=== PATIENT | male | born 1950 | race Caucasian/White ===

== ENCOUNTER 2017-01-25 21:04 | Inpatient (IN) | payer MEDICARE, OTHER ==
[2017-01-25] MEDS ORDERED: MORPHINE SULFATE 2 MG/ML SYRINGE IVP STA (21:14)
[2017-01-25] MEDS ORDERED: NITROGLYCERIN OINT 1 INCH/GM PACKET TOPICAL STA (21:14)
--- NOTE | 2017-01-25 21:19 | ED ---
Chest Pain HPI - General Stated Complaint: Chest Pain Time Seen by Provider: 01/25/17 21:05 Source: patient, EMS - History of Present Illness Initial Comments: This patient is a 66-year-old man brought in by EMS to be evaluated for pain just to the left of the epigastric/xiphoid area. The patient describes the pain as a burning/sharp pain. It is constant, moderate severity, and he has not noted any worsening or relieving factors. The patient was at rest when it came on, as she has been recently bedbound due to health problems. MD Complaint: chest pain Onset/Timin -: hour(s) Onset: during rest Pain Location: substernal Severity: moderate Quality: sharp, other Consistency: constant Improves With: nothing Worsens With: nothing - Related Data Home Medications Medication Instructions Recorded Confirmed Amiodarone [Cordarone] 200 mg PO DAILY 09/28/16 01/25/17 Ferrous Sulfate [Iron (65 MG 325 mg PO BID 09/28/16 01/25/17 Elemental)] Melatonin 5 mg PO HS 09/28/16 01/25/17 Metoprolol Tartrate [Lopressor] 12.5 mg PO BID 09/28/16 01/25/17 Ranitidine HCl 150 mg PO BID 09/28/16 01/25/17 Sertraline [Zoloft] 50 mg PO DAILY 09/28/16 01/25/17 Tamsulosin HCl [Flomax] 0.4 mg PO DAILY 09/28/16 01/25/17 HYDROcodone/APAP 7.5-325MG [[place] 1 tab PO Q6H PRN 01/25/17 01/25/17 7.5-325] LORazepam [Ativan] 1 mg PO Q8H PRN 01/25/17 01/25/17 Magnesium Oxide [Mag-Ox] 400 mg PO BID 01/25/17 01/25/17 Phosphorus #1 [K-Phos Neutral 250 mg PO TID 01/25/17 01/25/17 Tablet] Warfarin [Coumadin] 2 mg PO SUMOTUWETHFR 01/25/17 01/25/17 Previous Rx's Medication Instructions Recorded risperiDONE 3 mg PO HS #20 tablet 10/08/16 risperiDONE [RisperDAL] 2 mg PO QAM #20 tab 10/08/16 Allergies Allergy/AdvReac Type Severity Reaction Status Date / Time No Known Allergies Allergy Verified 01/25/17 21:23 Review of Systems ROS Statement: Those systems with pertinent positive or pertinent negative responses have been documented in the HPI. ROS Other: All systems not noted in ROS Statement are negative. Constitutional: Denies: fever, chills Respiratory: Denies: cough, dyspnea, hemoptysis Cardiovascular: Reports: as per HPI, chest pain. Denies: palpitations, orthopnea, edema, syncope Gastrointestinal: Denies: abdominal pain, vomiting, diarrhea Genitourinary: Denies: dysuria, hematuria Musculoskeletal: Denies: back pain Skin: Denies: rash Neurological: Denies: headache EKG Findings - EKG Comments: EKG Findings:: QRS duration is 168 ms, There appears to be a nonspecific intraventricular block. There is an old inferior infarct. - EKG Results: EKG: interpreted by ERMD - Blocks, [place], Hypertrophy, ST Abn: AV and intraventricular conduction: 1 AV block, intraventricular conduction delay QRS axis and voltage: right axis deviation (+90 to +180) Past Medical History Past Medical History: Atrial Fibrillation, GERD/Reflux, Hypertension Additional Past Medical History / Comment(s): irregular heart rhythm History of Any Multi-Drug Resistant Organisms: ESBL Date of last positivie culture/infection: 09/28/16 MDRO Source:: BLOOD E.COLI Past Surgical History: Unable to Obtain Past Psychological History: Unable to Obtain Smoking Status: Unknown if ever smoked Past Alcohol Use History: Unable to Obtain Past Drug Use History: Unable to Obtain - Past Family History Father Family Medical History: Unable to Obtain Mother Family Medical History: Unable to Obtain General Exam General appearance: alert, in no apparent distress Head exam: Present: atraumatic, normocephalic Eye exam: Present: normal appearance Neck exam: Present: other (Tracheostomy present and is patent without blood or secretions) Respiratory exam: Present: normal lung sounds bilaterally. Absent: respiratory distress, wheezes, rales, rhonchi, stridor Cardiovascular Exam: Present: regular rate, normal rhythm, systolic murmur. Absent: diastolic murmur, rubs, gallop GI/Abdominal exam: Present: soft. Absent: distended, tenderness, guarding, rebound, mass Extremities exam: Present: normal capillary refill, other (There is symmetric muscle wasting lower extremities). Absent: pedal edema, calf tenderness Back exam: Present: normal inspection. Absent: CVA tenderness (R), CVA tenderness (L) Neurological exam: Present: alert Skin exam: Present: warm, dry, intact, normal color. Absent: rash Course Vital Signs 01/25/17 21:15 Temperature 98.1 F Pulse Rate 86 Respiratory 16 Rate Blood Pressure 134/68 O2 Sat by Pulse 94 L Oximetry Disposition Clinical Impression: Chest pain, Elevated troponin I level Disposition: ADMITTED IP TO THIS HOSP Condition: Fair Instructions: Chest Pain (ED)
[2017-01-25 21:23] LABS: Basophils % (A) 0 %; CH 26.8; CHCM 31.4; Eosinophils % (A) 1 %; HCT 41.1 % (39.0-53.0); HGB 13.4 gm/dL (13.0-17.5); Hypochromasia Slight; Luc # (Auto) 0.06; Luc % (Auto) 1; Lymphocytes # (A) 0.3 k/uL (1.0-4.8); Lymphocytes % (A) 4 %; MCH 27.9 pg (25.0-35.0); MCHC 32.7 g/dL (31.0-37.0); MCV 85.4 fL (80.0-100.0); Mean Platelet Volume 7.9; Monocytes # (A) 0.4 k/uL (0-1.0); Monocytes % (A) 6 %; Neutrophils # (A) 6.9 k/uL (1.3-7.7); Neutrophils % (A) 89 %; RBC 4.81 m/uL (4.30-5.90); RDW 14.5 % (11.5-15.5); WBC 7.8 k/uL (3.8-10.6); WBC (Perox) 8.23
[2017-01-25 21:30] LABS: ALT 112 U/L (21-72); AST 61 U/L (17-59); Alkaline Phosphatase 108 U/L (38-126); Amylase 78 U/L (30-110); Anion Gap 9 mmol/L; Blood Urea Nitrogen 25 mg/dL (9-20); Calcium 8.7 mg/dL (8.4-10.2); Carbon Dioxide 23 mmol/L (22-30); Chloride 104 mmol/L (98-107); Glucose 110 mg/dL (74-99); Magnesium 1.9 mg/dL (1.6-2.3); Non-African American GFR(MDRD) 52 (>60 ml/min/1.73 sqM); Potassium 3.8 mmol/L (3.5-5.1); Sodium 136 mmol/L (137-145); Total Bilirubin 0.4 mg/dL (0.2-1.3); Total Protein 5.9 g/dL (6.3-8.2)
[2017-01-25 21:38] LABS: INR 2.2 (<1.1); Partial Thromboplastin Time 32.4 sec (22.0-30.0); Prothrombin Time 21.3 sec (9.0-12.0)
--- NOTE | 2017-01-25 21:41 | XR ---
EXAMINATION TYPE: XR chest 1V portable DATE OF EXAM: 01/25/2017 9:37 PM COMPARISON: Chest x-ray September 28, 2016 HISTORY: Bradycardia. TECHNIQUE: Single AP portable frontal upright view of the chest is obtained. FINDINGS: Sternal wires and metallic closure device are redemonstrated. There is no focal air space opacity, pleural effusion, or pneumothorax seen. The cardiac silhouette size is within normal limits . There is metallic aortic valvular ring redemonstrated. The osseous structures are intact. IMPRESSION: No acute pulmonary process. No significant change from prior.
[2017-01-25 22:13] LABS: Troponin I 0.035 ng/mL (0.000-0.034)
[2017-01-25] MEDS ORDERED: ENOXAPARIN 80 MG/0.8 ML SYRINGE SQ STA (22:16)
[2017-01-25] MEDS ORDERED: NITROGLYCERIN SL TABS 0.4 MG TAB SUBLINGUAL PRN (22:27)
[2017-01-25] MEDS ORDERED: ENOXAPARIN 40 MG/0.4 ML SYRINGE SQ SCH (22:30)
[2017-01-25] MEDS ORDERED: LORazepam 1 MG TAB PO PRN (22:31)
[2017-01-25] MEDS ORDERED: WARFARIN 2 MG TAB PO SCH (22:45)
[2017-01-25 23:44] LABS: Glucose,Whole Blood 101 mg/dL (75-99)
[2017-01-26 00:57] VITALS: BMI 24.6
[2017-01-26] MEDS: ENOXAPARIN 80 MG/0.8 ML SYRINGE SQ SCH ×3 (01:04→23:09)
[2017-01-26] MEDS: HYDROcodone/APAP 7.5-325MG 1 EACH TAB PO PRN ×2 (01:05→16:49)
[2017-01-26 05:30] LABS: Anion Gap 8 mmol/L; Blood Urea Nitrogen 24 mg/dL (9-20); Carbon Dioxide 24 mmol/L (22-30); Chloride 105 mmol/L (98-107); Cholesterol 101 mg/dL (<200); Glucose 100 mg/dL (74-99); HDL Cholesterol 28 mg/dL (40-60); Non-African American GFR(MDRD) 51 (>60 ml/min/1.73 sqM); Phosphorous 2.8 mg/dL (2.5-4.5); Potassium 3.8 mmol/L (3.5-5.1); Sodium 137 mmol/L (137-145); Triglycerides 99 mg/dL (<150)
[2017-01-26 05:41] LABS: CH 27.6; CHCM 31.7; HCT 42.9 % (39.0-53.0); HDW 2.37; HGB 13.6 gm/dL (13.0-17.5); MCH 27.6 pg (25.0-35.0); MCHC 31.7 g/dL (31.0-37.0); MCV 87.1 fL (80.0-100.0); Mean Platelet Volume 8.1; RBC 4.93 m/uL (4.30-5.90); RDW 15.3 % (11.5-15.5); WBC 9.7 k/uL (3.8-10.6)
[2017-01-26 06:19] LABS: Creatine Kinase MB 0.9 ng/mL (0.0-2.4)
[2017-01-26 06:27] LABS: Troponin I 0.148 ng/mL (0.000-0.034)
[2017-01-26] MEDS: SERTRALINE 50 MG TAB PO SCH (08:19)
[2017-01-26] MEDS: FERROUS SULFATE 325 MG TAB PO SCH ×2 (08:20→23:07)
[2017-01-26] MEDS: FAMOTIDINE 20 MG TAB PO SCH ×2 (08:20→23:07)
[2017-01-26] MEDS: MAGNESIUM OXIDE 400 MG TAB PO SCH ×2 (08:20→23:07)
[2017-01-26] MEDS: risperiDONE 1 MG TAB PO SCH (08:20)
[2017-01-26] MEDS: AMIODARONE 200 MG TAB PO SCH (08:20)
[2017-01-26] MEDS ORDERED: PHOSPHORUS 250 MG PO SCH (09:00)
[2017-01-26] MEDS ORDERED: ASPIRIN 325 MG TAB PO SCH (09:00)
--- NOTE | 2017-01-26 10:06 | P.CRDCN ---
History of Present Illness Consult date: 01/26/17 Requesting physician: Jignesh Reardon Consult reason: chest pain Chief complaint: Chest pain History of present illness: This is a 66-year-old gentleman with known history of hypertension, hyperlipidemia, paroxysmal atrial fibrillation, prior bypass surgery, psychiatric history, who presents to the hospital with symptoms of chest discomfort. Most of the information was extracted from the medical record, as the patient is quite confused. Patient states that he presented to the hospital with symptoms of chest discomfort. EKG on arrival shows normal sinus rhythm with inferior lateral ST-T wave changes. Repeat EKG performed this morning shows sinus bradycardia with first-degree AV block and evidence of inferior ST elevation and anterior lateral ST depression. Upon review of patient's prior EKG performed in September, similar changes but much less pronounced were noted at that time as well. Chest x-ray does not reveal any acute cardiopulmonary process. White blood cell count 9.7, hemoglobin 13.6, platelet count 177. INR 2.2, d-dimer 0.53, potassium 3.8, BUN 24, creatinine 1.4. BNP level 4040. Troponins 0.035, 0.14. Blood pressure on arrival 134/68 with a heart rate in 80s. 94% on room air. Patient is currently on amiodarone 200 mg daily, aspirin 325 mg daily, enoxaparin twice a day, iron tablet, mag oxide, metoprolol tartrate 12-1/2 mg one tablet by mouth twice a day, Coumadin 2 mg daily. At the time of my examination this morning, patient is currently chest pain-free. Past Medical History Past Medical History: Atrial Fibrillation, GERD/Reflux, Hypertension Additional Past Medical History / Comment(s): irregular heart rhythm History of Any Multi-Drug Resistant Organisms: ESBL Date of last positivie culture/infection: 09/28/16 MDRO Source:: BLOOD E.COLI Past Surgical History: Unable to Obtain Past Psychological History: Unable to Obtain Smoking Status: Never smoker Past Alcohol Use History: Unable to Obtain Past Drug Use History: Unable to Obtain - Past Family History Father Family Medical History: Unable to Obtain Mother Family Medical History: Unable to Obtain Medications and Allergies Home Medications Medication Instructions Recorded Confirmed Type Amiodarone [Cordarone] 200 mg PO DAILY 09/28/16 01/25/17 History Ferrous Sulfate [Iron (65 MG 325 mg PO BID 09/28/16 01/25/17 History Elemental)] Melatonin 5 mg PO HS 09/28/16 01/25/17 History Metoprolol Tartrate [Lopressor] 12.5 mg PO BID 09/28/16 01/25/17 History Ranitidine HCl 150 mg PO BID 09/28/16 01/25/17 History Sertraline [Zoloft] 50 mg PO DAILY 09/28/16 01/25/17 History Tamsulosin HCl [Flomax] 0.4 mg PO DAILY 09/28/16 01/25/17 History HYDROcodone/APAP 7.5-325MG [[place] 1 tab PO Q6H PRN 01/25/17 01/25/17 History 7.5-325] LORazepam [Ativan] 1 mg PO Q8H PRN 01/25/17 01/25/17 History Magnesium Oxide [Mag-Ox] 400 mg PO BID 01/25/17 01/25/17 History Phosphorus #1 [K-Phos Neutral 250 mg PO TID 01/25/17 01/25/17 History Tablet] Warfarin [Coumadin] 2 mg PO SUMOTUWETHFR 01/25/17 01/25/17 History Allergies Allergy/AdvReac Type Severity Reaction Status Date / Time No Known Allergies Allergy Verified 01/25/17 21:23 Physical Exam Vitals: Vital Signs Temp Pulse Pulse Resp BP BP Pulse Ox 01/26/17 08:00 98 F 56 L 20 130/67 99 01/26/17 06:00 55 L 13 127/69 97 01/26/17 04:00 60 81 14 108/62 98 01/26/17 02:00 68 21 104/59 96 01/26/17 00:00 98.3 F 84 81 23 126/73 97 01/25/17 22:49 92 16 164/77 98 01/25/17 22:47 98.3 F 81 18 101/71 97 Intake and Output 01/25/17 01/26/17 01/26/17 22:59 06:59 14:59 Intake Total 100 20 Output Total 650 Balance -550 20 Intake: IV 100 20 0.9% NS 100 20 Output: Urine 650 Other: Voiding Method Urinal Urinal Weight 78 kg PHYSICAL EXAMINATION: HEENT: Head is atraumatic, normocephalic. Pupils equal, round. Neck is supple. There is no elevated jugular venous pressure. HEART EXAMINATION: Heart S1, S2 normal. No murmur or gallop heard. CHEST EXAMINATION: Lungs are clear to auscultation and precussion. No chest wall tenderness is noted on palpation or with deep breathing. ABDOMEN: Soft, nontender. Bowel sounds are heard. No organomegaly noted. EXTREMITIES: 2+ peripheral pulses with no evidence of peripheral edema and no calf tenderness noted. NEUROLOGIC patient is awake, alert and oriented -3. . Results 01/26/17 04:08 01/26/17 04:08 Cardiac Enzymes 01/26/17 Range/Units 04:08 CK-MB (CK-2) 0.9 (0.0-2.4) ng/mL Troponin I 0.148 H* (0.000-0.034) ng/mL Lipids 01/26/17 Range/Units 04:08 Triglycerides 99 (<150) mg/dL Cholesterol 101 (<200) mg/dL HDL Cholesterol 28 L (40-60) mg/dL CBC 01/26/17 Range/Units 04:08 WBC 9.7 (3.8-10.6) k/uL RBC 4.93 (4.30-5.90) m/uL Hgb 13.6 (13.0-17.5) gm/dL Hct 42.9 (39.0-53.0) % Plt Count 177 (150-450) k/uL Comprehensive Metabolic Panel 01/26/17 Range/Units 04:08 Sodium 137 (137-145) mmol/L Potassium 3.8 (3.5-5.1) mmol/L Chloride 105 (98-107) mmol/L Carbon Dioxide 24 (22-30) mmol/L BUN 24 H (9-20) mg/dL Creatinine 1.40 H (0.66-1.25) mg/dL Glucose 100 H (74-99) mg/dL Calcium 9.0 (8.4-10.2) mg/dL Current Medications Generic Name Dose Route Start Last Admin Trade Name Freq PRN Reason Stop Dose Admin Hydrocodone Bitart/Acetaminophen 1 each 01/25/17 22:31 01/26/17 01:05 [place] 7.5-325 PO 1 each Q6H PRN Administration Pain Amiodarone HCl 200 mg 01/26/17 09:00 01/26/17 08:20 Cordarone PO 200 mg DAILY [facility] Administration Aspirin 325 mg 01/26/17 09:00 Aspirin PO DAILY [facility] Enoxaparin Sodium 75 mg 01/25/17 23:18 01/26/17 01:04 Lovenox SQ Not Given Q12H [facility] Famotidine 20 mg 01/26/17 09:00 01/26/17 08:20 Pepcid PO 20 mg BID [facility] Administration Ferrous Sulfate 325 mg 01/26/17 09:00 01/26/17 08:20 Feosol PO 325 mg BID [facility] Administration Lorazepam 1 mg 01/25/17 22:31 Ativan PO Q8H PRN Anxiety Magnesium Oxide 400 mg 01/26/17 09:00 01/26/17 08:20 Mag-Ox PO 400 mg BID [facility] Administration Melatonin 5 mg 01/26/17 21:00 Melatonin PO HS [facility] Metoprolol Tartrate 12.5 mg 01/26/17 09:00 Lopressor PO BID [facility] Nitroglycerin 0.4 mg 01/25/17 22:27 Nitrostat SUBLINGUAL Q5M PRN Chest Pain Risperidone 3 mg 01/26/17 21:00 Risperdal PO HS [facility] Risperidone 2 mg 01/26/17 09:00 01/26/17 08:20 Risperdal PO 2 mg QAM [facility] Administration Sertraline HCl 50 mg 01/26/17 09:00 01/26/17 08:19 Zoloft PO 50 mg DAILY [facility] Administration Sodium Chloride 10 ml 01/26/17 09:00 01/26/17 08:21 Saline Flush IV 10 ml BID [facility] Administration Tamsulosin HCl 0.4 mg 01/26/17 09:00 Flomax PO DAILY [facility] Warfarin Sodium 2 mg 01/25/17 22:45 01/26/17 01:06 Coumadin PO 2 mg SUMOTUWETHFR [facility] Administration Intake and Output 01/25/17 01/26/17 01/26/17 22:59 06:59 14:59 Intake Total 100 20 Output Total 650 Balance -550 20 Intake: IV 100 20 0.9% NS 100 20 Output: Urine 650 Other: Voiding Method Urinal Urinal Weight 78 kg 01/26/17 04:08 01/26/17 04:08 EKG Interpretations (text) EKG shows normal sinus rhythm with first-degree AV block inferior Q waves with ST changes and anterior lateral T-wave inversion Assessment and Plan Plan: Assessment and plan #1 non-ST elevation myocardial infarction #2 history of coronary artery disease with prior bypass surgery and prior valve replacement, exact details unavailable #3 hypertension #4 hyperlipidemia #5 psychiatric history #6Paroxysmal atrial fibrillation, on Coumadin. #7 mild renal insufficiency Plan Echocardiogram with Doppler study performed in September revealed an ejection fraction of 55-60% with normally functioning bioprosthetic aortic valve, because of the abnormal troponins we will repeat an echocardiogram with Doppler study.We will hold the patient's Coumadin, continue Lovenox.. Give the patient Lipitor 80 mg now and daily. Decrease aspirin 81 mg daily. Patient may require repeat cardiac catheterization. We will check PT/INR in the morning. Check lytes BUN and creatinine in the morning. Further recommendations to follow. DNP note has been reviewed, I agree with a documented findings and plan of care. Patient was seen and examined.
[2017-01-26 10:58] LABS: Creatine Kinase MB 1.1 ng/mL (0.0-2.4)
[2017-01-26] MEDS: METOPROLOL TARTRATE 12.5 MG TAB PO SCH ×2 (11:01→23:07)
[2017-01-26 11:07] LABS: Troponin I 0.118 ng/mL (0.000-0.034)
[2017-01-26] MEDS: ATORVASTATIN 80 MG TAB PO SCH (12:31)
[2017-01-26] MEDS: TAMSULOSIN 0.4 MG CAP.ER.24H PO SCH (12:31)
--- NOTE | 2017-01-26 12:40 | ECHOF ---
Referral Reason:chest pain MEASUREMENTS -------- HEIGHT: 182.9 cm WEIGHT: 77.6 kg BP: 130/67 IVSd: 1.3 cm (0.6 - 1.1) LVIDd: 4.4 cm (3.9 - 5.3) LVPWd: 1.4 cm (0.6 - 1.1) IVSs: 1.7 cm LVIDs: 2.2 cm LVPWs: 1.7 cm Ao Diam: 3.3 cm (2.0 - 3.7) AV Cusp: 2.0 cm (1.5 - 2.6) LA Diam: 3.9 cm (2.7 - 3.8) MV EXCURSION: 9.718 mm (> 18.000) MV EF SLOPE: 26 mm/s (70 - 150) EPSS: 0.7 cm MV E Jean: 0.43 m/s MV DecT: 281 ms MV A Jean: 0.82 m/s MV E/A Ratio: 0.52 AV maxP.04 mmHg AV meanP.69 mmHg RAP: 5.00 mmHg RVSP: 27.98 mmHg FINDINGS -------- Sinus rhythm. This was a technically difficult study with suboptimal views. There is mild concentric left ventricular hypertrophy. Overall left ventricular systolic function is normal with, an EF between 55 - 60 %. The right ventricle is normal in size and function. The left atrium is normal in size. The right atrium is normal in size. 1.5mg of Definity was utilized for enhancement of images Aortic valve is trileaflet and is mildly thickened. The mitral valve leaflets are mildly thickened. Mild mitral regurgitation is present. Mild tricuspid regurgitation present. The right ventricular systolic pressure, as measured by Doppler, is 27.98mmHg. Pulmonic valve appears structurally normal. The aortic root size is normal. The pericardium is normal. CONCLUSIONS -------- 1. Sinus rhythm. 2. The mitral valve leaflets are mildly thickened. 3. Mild mitral regurgitation is present. 4. Mild tricuspid regurgitation present. 5. The right ventricular systolic pressure, as measured by Doppler, is 27.98mmHg. 6. Pulmonic valve appears structurally normal. 7. The aortic root size is normal. 8. The pericardium is normal. 9. This was a technically difficult study with suboptimal views. 10. There is mild concentric left ventricular hypertrophy. 11. Overall left ventricular systolic function is normal with, an EF between 55 - 60 %. 12. The right ventricle is normal in size and function. 13. The left atrium is normal in size. 14. The right atrium is normal in size. 15. 1.5mg of Definity was utilized for enhancement of images 16. Aortic valve is trileaflet and is mildly thickened. HOOKER UP: Milena Uriarte RDCS
[2017-01-26 12:47] VITALS: RESP 18
--- NOTE | 2017-01-26 16:50 | HP ---
DATE OF ADMISSION: 01/25/2017 PRESENTING COMPLAINT: Chest pain. HISTORY OF PRESENTING COMPLAINT: This is a 66-year-old patient of visiting physician Dr. Kelly whose chronic stable medical conditions include BPH, chronic kidney disease, stage II, atrial fibrillation, GERD, hypertension. The patient uses a wheelchair to get about; has got chronic bilateral foot drop. Patient is not the best of historians. Patient presents with chest pain, left anterior chest wall, off and on; some shortness of breath. No radiation. Denies any sweating. Present at rest. Admitted for the same. Currently free of chest pain. REVIEW OF SYSTEMS: CONSTITUTIONAL: Tired. HEENT: None. RESPIRATORY: As above. CARDIOVASCULAR: As above. GASTROINTESTINAL: Heartburn. GENITOURINARY: Slow urine stream. DERMATOLOGICAL: Dry skin. HEMATOLOGICAL: None. LYMPHATICS: None. PSYCHIATRY: None. NEUROLOGICAL: Some numbness and tingling in the feet. PAST MEDICAL HISTORY: 1. Atrial fibrillation. 2. GERD. 3. Hypertension. PAST SURGICAL HISTORY: Patient does not remember. SOCIAL HISTORY: No smoking. Lives with his brother and nephew. Uses a wheelchair. Denies any alcohol. FAMILY HISTORY: Patient does not remember. HOME MEDICATIONS: 1. K-Phos 250 mg p.o. t.i.d. 2. Magnesium oxide 400 mg p.o. b.i.d. 3. Ativan 1 mg q.8 p.r.n. 4. [place] 7.5 one tablet q.6 p.r.n. 5. Iron 325 p.o. b.i.d. 6. Cordarone 200 mg p.o. daily. 7. Lopressor 12.5 p.o. b.i.d. 8. Melatonin 5 mg p.o. at bedtime. 9. Risperdal 2 mg in the morning and 3 mg at bedtime. 10. Coumadin 2 mg Wednesday, Wednesday, Wednesday, Wednesday, , Wednesday. 11. Flomax 0.4 mg a day. 12. Zoloft 50 mg p.o. daily. 13. Zantac 150 mg p.o. b.i.d. ALLERGIES: NONE. PHYSICAL EXAMINATION: VITAL SIGNS ON PRESENTATION: Temperature 98.1, pulse 86, respiration 16, blood pressure 130/68, pulse ox 94% on room air. GENERAL APPEARANCE: Average build. Sitting up, not in distress. EYES: Pupils equal. Conjunctivae normal. HEENT: Oral cavity normal. NECK: JVD not raised. Mass not palpable. RESPIRATORY: Effort normal. Lungs are clear. CARDIOVASCULAR: First and second sounds normal. No edema. ABDOMEN: Soft, nontender. Liver and spleen not palpable. LYMPHATIC: No lymph node palpable in neck or axillae. PSYCHIATRY: Patient is able to answer simple questions. Mood and affect normal. EXTREMITIES: Patient has bilateral foot drop foot with foot contractures, shiny skin, decreased distal pulses, decreased sensation. INVESTIGATIONS: White count 7.8, hemoglobin 13.4. INR 2.2. Potassium 3.8. BUN 25, creatinine 1.37. Troponin 0.035, 0.148, 0.118. EKG shows some ST-segment depression in the anterolateral leads and some intraventricular block. ASSESSMENT: 1. Acute non-Q-wave myocardial infarction, probably in the lateral wall. 2. Possible underlying rhythm is atrial flutter, persistent. 3. Coumadin monitoring for therapeutic level. 4. Benign prostatic hypertrophy. 5. Chronic kidney disease, stage III, from hypertensive nephrosclerosis. 6. Essential hypertension. 7. Gastroesophageal reflux disease. 8. Bilateral foot drop and contracture. PLAN: Cardiology was consulted. Home medications were resumed. Patient was put on Lovenox. Patient is on a beta phi. Care was discussed with the patient. Two-D echocardiograms is ordered.
[2017-01-26] MEDS ORDERED: risperiDONE 1 MG TAB PO SCH (21:00)
[2017-01-26] MEDS ORDERED: MELATONIN 5 MG TABLET PO SCH (21:00)
[2017-01-27 00:48] VITALS: PULSE 81
[2017-01-27] MEDS: HYDROcodone/APAP 7.5-325MG 1 EACH TAB PO PRN ×2 (03:01→12:38)
[2017-01-27 08:16] LABS: INR 1.7 (<1.1); Prothrombin Time 16.4 sec (9.0-12.0)
[2017-01-27] MEDS: MAGNESIUM OXIDE 400 MG TAB PO SCH (08:39)
[2017-01-27] MEDS: SERTRALINE 50 MG TAB PO SCH (08:39)
[2017-01-27] MEDS: ATORVASTATIN 80 MG TAB PO SCH (08:39)
[2017-01-27] MEDS: FAMOTIDINE 20 MG TAB PO SCH (08:39)
[2017-01-27] MEDS: AMIODARONE 200 MG TAB PO SCH (08:39)
[2017-01-27] MEDS: risperiDONE 1 MG TAB PO SCH (08:39)
[2017-01-27] MEDS: TAMSULOSIN 0.4 MG CAP.ER.24H PO SCH (08:39)
[2017-01-27] MEDS: FERROUS SULFATE 325 MG TAB PO SCH (08:40)
[2017-01-27] MEDS: METOPROLOL TARTRATE 12.5 MG TAB PO SCH (08:41)
[2017-01-27] MEDS ORDERED: ASPIRIN 81 MG CHEW PO SCH (09:00)
[2017-01-27] MEDS: ENOXAPARIN 80 MG/0.8 ML SYRINGE SQ SCH (11:33)
[2017-01-27 14:47] VITALS: BP 112/56; TEMP 97.7
--- NOTE | 2017-01-27 15:09 | P.PN ---
Subjective Principal diagnosis: Chest pain This is a 66-year-old gentleman with known history of hypertension, hyperlipidemia, paroxysmal atrial fibrillation, prior bypass surgery, psychiatric history, who presents to the hospital with symptoms of chest discomfort. He ruled in for non-Q-wave myocardial infarction. Echocardiogram with Doppler study was performed which revealed normal left ventricular systolic function. Patient has remained hemodynamically stable with no complaints of any chest discomfort. From cardiology's perspective, patient was instructed by Dr. Maritza Ibarra that he may be able to be discharged home to follow- up with his drug safety assistant in the office. An outpatient stress test will be ordered within the next one to 2 weeks. Objective - Vital Signs Vital signs: Vital Signs Temp 97.7 F 01/27/17 14:43 Pulse 81 01/27/17 14:43 Resp 18 01/27/17 14:43 BP 112/56 01/27/17 14:43 Pulse Ox 94 L 01/27/17 14:43 Intake & Output 01/26/17 01/27/17 01/27/17 18:59 06:59 18:59 Intake Total 440 Output Total 450 900 400 Balance -10 -900 -400 Weight 78 kg 73.5 kg Intake: IV 20 0.9% NS 20 Oral 420 Output: Urine 450 900 400 Other: Voiding Method Urinal Diaper Diaper Incontinent Incontinent # Voids 2 2 # Bowel Movements 0 0 - Exam PHYSICAL EXAMINATION: HEENT: Head is atraumatic, normocephalic. Pupils equal, round. Neck is supple. There is no elevated jugular venous pressure. HEART EXAMINATION: Heart S1, S2 normal. No murmur or gallop heard. CHEST EXAMINATION: Lungs are clear to auscultation and precussion. No chest wall tenderness is noted on palpation or with deep breathing. ABDOMEN: Soft, nontender. Bowel sounds are heard. No organomegaly noted. EXTREMITIES: 2+ peripheral pulses with no evidence of peripheral edema and no calf tenderness noted. NEUROLOGIC patient is awake, alert and oriented -3. - Labs CBC & Chem 7: 01/26/17 04:08 01/26/17 04:08 Labs: Abnormal Lab Results - Last 24 Hours (Table) 01/27/17 Range/Units 07:51 PT 16.4 H (9.0-12.0) sec Assessment and Plan Plan: Assessment and plan #1 non-ST elevation myocardial infarction #2 history of coronary artery disease with prior bypass surgery and prior valve replacement, exact details unavailable #3 hypertension #4 hyperlipidemia #5 psychiatric history #6Paroxysmal atrial fibrillation, on Coumadin. #7 mild renal insufficiency Plan From cardiology's perspective, patient has been advised by Dr. Maritza Ibarra that he may be able to be discharged home today. We will make him a follow-up appointment in the office within one week, outpatient stress test will also be requested. Continue with maximal medical therapy at this time. DNP note has been reviewed, I agree with a documented findings and plan of care. Patient was seen and examined.
--- NOTE | 2017-01-28 08:23 | DS ---
DATE OF ADMISSION: 01/25/2017 DATE OF DISCHARGE: 01/27/2017 FINAL DIAGNOSES: 1. Acute non-Q myocardial infarction, probably in the lateral wall, present on admission. 2. Persistent atrial flutter. 3. Coumadin monitoring for therapeutic level. 4. Benign prostatic hypertrophy. 5. Chronic kidney disease stage III from hypertensive nephrosclerosis. 6. Essential hypertension. 7. Gastroesophageal reflux disease. 8. Bilateral foot drop and contracture. HOSPITAL COURSE: This patient presented with acute DC. A 2-D echocardiogram showed EF of 55% to 60%. Seen by Dr. Bryant Ibarra; he will do an outpatient stress test. Patient is symptom-free at the time of discharge. BUN and creatinine are 24 and 1.10. Patient is already on Coumadin. LDL was 53. On examination, lungs are clear. CARDIOVASCULAR: First and second sounds normal. DISCHARGE MEDICATIONS: 1. Cordarone 200 mg a day. 2. Iron 325 p.o. b.i.d. 3. Melatonin 5 mg p.o. q.h.s. 4. Lopressor 12.5 p.o. b.i.d. 5. Zantac 150 mg p.o. b.i.d. 6. Zoloft 50 mg p.o. daily. 7. Flomax 0.4 mg p.o. daily. 8. Risperidone 3 mg p.o. q.h.s. and 2 mg p.o. in the morning. 9. [employer] 7.5 one tablets q.6 p.r.n. 10. Ativan 1 mg p.o. q.8 p.r.n. 11. Magnesium oxide 400 mg b.i.d. 12. K-Phos as before. 13. Coumadin 2 mg once Wednesday, Wednesday, Wednesday, Wednesday, , Wednesday. 14. Aspirin 81 mg daily. 15. Lipitor 80 mg daily, 16. Nitrostat 0.4 sublingual q.5 p.r.n. Follow up with Dr. Bryant Ibarra in 1 week. Follow up with Dr. Kelly on 01/29/2017. Patient to have a BMP drawn in 3 days.
== END 2017-01-27 18:36 | disposition home or self-care (01) | DRG 281 ==
LOC: EC 21:04 → 6ICU 22:31 → 6SEL 01-26 09:06
PROVIDERS: ADMIT Hospitalist; ATTEND Hospitalist
DX: I21.4 Non-ST elevation (NSTEMI) myocardial infarction (principal); I48.92 Unspecified atrial flutter; Z93.0 Tracheostomy status; N18.3 Chronic kidney disease, stage 3 (moderate); I48.0 Paroxysmal atrial fibrillation; I44.0 Atrioventricular block, first degree; I25.10 Atherosclerotic heart disease of native coronary artery without angina pectoris; I12.9 Hypertensive chronic kidney disease with stage 1 through stage 4 chronic kidney disease, or unspecified chronic kidney disease; E78.5 Hyperlipidemia, unspecified; N40.0 Benign prostatic hyperplasia without lower urinary tract symptoms; M21.371 Foot drop, right foot; M21.372 Foot drop, left foot; Z95.1 Presence of aortocoronary bypass graft; Z95.2 Presence of prosthetic heart valve; Z99.3 Dependence on wheelchair; Z16.24 Resistance to multiple antibiotics; K21.9 Gastro-esophageal reflux disease without esophagitis; Z79.01 Long term (current) use of anticoagulants; Z79.899 Other long term (current) drug therapy; Z79.82 Long term (current) use of aspirin
CPT/HCPCS: 36415; 71010; 80048; 80053; 80061; 82150; 82550; 82553; 83690; 83735; 83880; 84100; 84484; 85025; 85027; 85379; 85610; 85730; 93005; 93306; 96374; 99285

== ENCOUNTER 2019-06-24 16:15 | Inpatient (IN) | payer OTHER ==
[~2019-06-24 16:15] MED LIST: HUMAN PROTHROMBIN COMPLX 500 UNIT/16 ML VIAL IV ONE
[2019-06-24] MEDS ORDERED: SODIUM CHLORIDE 0.9% 500 ML 500 ML IV STA (16:17)
[2019-06-24] MEDS ORDERED: PANTOPRAZOLE 40 MG/10 ML VIAL IVP STA (16:17)
--- NOTE | 2019-06-24 16:29 | ED ---
GI Bleed HPI - General Stated complaint: GI BLEED Time Seen by Provider: 06/24/19 16:16 Source: patient, EMS Mode of arrival: EMS Limitations: physical limitation - History of Present Illness Initial comments: Samuel is a 69 yo male with extensive PMH most significant for history of afib on coumadin and history of upper GI bleed in the past, patient presents to the emergency department today for evaluation of3 days of dark tarry stools. Patient reports that this is similar to previous GI bleeds. He reports that for the past 3 days he's been having dark stools and was concerned that there may blood in it. Patient denies any abdominal pain, nausea or vomiting. Denies any chest pain. Patient reports he is still taking Coumadin. - Related Data Home Medications Medication Instructions Recorded Confirmed Amiodarone [Cordarone] 200 mg PO DAILY 09/28/16 06/24/19 Melatonin 10 mg PO HS 09/28/16 06/24/19 Metoprolol Tartrate [Lopressor] 12.5 mg PO BID 09/28/16 06/24/19 Ranitidine HCl 150 mg PO BID 09/28/16 06/24/19 Tamsulosin HCl [Flomax] 0.4 mg PO DAILY 09/28/16 06/24/19 HYDROcodone/APAP 7.5-325MG [[place] 1 tab PO Q6H PRN 01/25/17 06/24/19 7.5-325] LORazepam [Ativan] 1 mg PO Q8H PRN 01/25/17 06/24/19 Magnesium Oxide [Mag-Ox] 400 mg PO BID 01/25/17 06/24/19 Warfarin [Coumadin] 2 mg PO SUMOWETHFRSA 01/25/17 06/24/19 Atorvastatin [Lipitor] 5 mg PO HS 06/24/19 06/24/19 Sennosides [Senna] 17.2 mg PO HS 06/24/19 06/24/19 Sertraline [Zoloft] 100 mg PO DAILY 06/24/19 06/24/19 Ursodiol 300 mg PO BID 06/24/19 06/24/19 risperiDONE 3 mg PO BID 06/24/19 06/24/19 Allergies Allergy/AdvReac Type Severity Reaction Status Date / Time No Known Allergies Allergy Verified 06/24/19 16:40 Review of Systems ROS Statement: Those systems with pertinent positive or pertinent negative responses have been documented in the HPI. ROS Other: All systems not noted in ROS Statement are negative. Past Medical History Past Medical History: Atrial Fibrillation, GERD/Reflux, Hypertension Additional Past Medical History / Comment(s): irregular heart rhythm History of Any Multi-Drug Resistant Organisms: ESBL Date of last positivie culture/infection: 09/28/16 MDRO Source:: BLOOD E.COLI Past Surgical History: Unable to Obtain Past Psychological History: Unable to Obtain Smoking Status: Former smoker Past Alcohol Use History: Unable to Obtain Past Drug Use History: Unable to Obtain - Past Family History Father Family Medical History: Unable to Obtain Mother Family Medical History: Unable to Obtain General Exam - General Exam Comments Initial Comments: Physical Exam GENERAL: Chronically ill-appearing, appears older than stated age HENT: Normocephalic, Atraumatic. Previous tracheostomy with open ostomy but no trach in place EYES: PERRL, EOMI Conjunctival pallor PULMONARY: Unlabored respirations. No audible rales rhonchi or wheezing was noted. CARDIOVASCULAR: Tachycardic, irregular ABDOMEN: Soft and nontender with normal bowel sounds. Obese Nontender SKIN: Pale, bruising on extremities : Deferred NEUROLOGIC: Patient is alert and oriented x3. Paraplegic MUSCULOSKELETAL: Atrophy of lower extremities PSYCHIATRIC: Normal psychiatric evaluation. Limitations: physical limitation Course Vital Signs 06/24/19 06/24/19 06/24/19 16:18 17:07 17:14 Temperature 97.7 F 97.8 F 97.8 F Pulse Rate 83 78 74 Respiratory 18 18 16 Rate Blood Pressure 86/56 103/57 99/56 O2 Sat by Pulse 100 Oximetry 06/24/19 06/24/19 06/24/19 17:19 17:24 17:30 Temperature 98.0 F Pulse Rate 77 78 75 Respiratory 19 16 23 Rate Blood Pressure 96/50 101/56 96/50 O2 Sat by Pulse 99 99 Oximetry 06/24/19 06/24/19 18:00 18:30 Temperature Pulse Rate 72 78 Respiratory 14 9 L Rate Blood Pressure 101/56 144/58 O2 Sat by Pulse 100 Oximetry Medical Decision Making - Medical Decision Making The patient was seen and evaluated immediately upon arrival the emergency department, patient is very pale appearing, based on physical exam and concern that his hemoglobin is likely less than 7, labs and transfusion were ordered upon arrival. Patient was noted to be hypotensive and decision was made to transfuse 2 units of uncrossed blood prior to type and cross. Patient's labs resulted in multiple significant abnormalities including a hemoglobin of only 4.4 and a lactic of greater than 7, patient had been hypotensive upon arrival he is receiving his first unit of blood and hemoglobin has improved to 106 systolic. Labs and results were discussed with the patient as well as his brother bedside who confirmed the patient has had upper GI bleeding in the past, brother has held his warfarin for Wednesday night and Wednesday night due to the black tarry stools but today due to the patient appears pale had decided to call EMS. Patient and brother confirm that the patient is in fact full code. Patient care was discussed with Dr. Reardon who agrees with plan for admission to the ICU for further transfusion Patient care was discussed with Dr. Yoo and who accepts the patient to the ICU Patient care was also discussed with Dr. Hernández of GI who agrees with plan for reversal of INR, transfusion and ICU admission - Lab Data Result diagrams: 06/24/19 16:30 06/24/19 16:30 Lab Results 06/24/19 06/24/19 06/24/19 Range/Units 16:30 16:30 16:30 WBC 19.4 H (3.8-10.6) k/uL RBC 1.77 L (4.30-5.90) m/uL Hgb 4.4 L* (13.0-17.5) gm/dL Hct 14.4 L* (39.0-53.0) % MCV 81.4 (80.0-100.0) fL MCH 24.6 L (25.0-35.0) pg MCHC 30.2 L (31.0-37.0) g/dL RDW 20.6 H (11.5-15.5) % Plt Count 254 (150-450) k/uL Neutrophils % 90 % Lymphocytes % 2 % Monocytes % 7 % Eosinophils % 0 % Basophils % 0 % Neutrophils # 17.4 H (1.3-7.7) k/uL Lymphocytes # 0.4 L (1.0-4.8) k/uL Monocytes # 1.3 H (0-1.0) k/uL Eosinophils # 0.1 (0-0.7) k/uL Basophils # 0.1 (0-0.2) k/uL Hypochromasia Marked Poikilocytosis Slight Anisocytosis Moderate Microcytosis Slight PT (9.0-12.0) sec INR (<1.2) APTT (22.0-30.0) sec Sodium 137 (137-145) mmol/L Potassium 4.6 (3.5-5.1) mmol/L Chloride 108 H (98-107) mmol/L Carbon Dioxide 14 L (22-30) mmol/L Anion Gap 15 mmol/L BUN 82 H (9-20) mg/dL Creatinine 1.77 H (0.66-1.25) mg/dL Est GFR (CKD-EPI)AfAm 44 (>60 ml/min/1.73 sqM) Est GFR (CKD-EPI)NonAf 38 (>60 ml/min/1.73 sqM) Glucose 219 H (74-99) mg/dL Plasma Lactic Acid Gurpreet (0.7-2.0) mmol/L Calcium 9.0 (8.4-10.2) mg/dL Magnesium 2.7 H (1.6-2.3) mg/dL Total Bilirubin 0.4 (0.2-1.3) mg/dL AST 54 (17-59) U/L ALT 49 (21-72) U/L Alkaline Phosphatase 60 (38-126) U/L Troponin I (0.000-0.034) ng/mL Total Protein 4.8 L (6.3-8.2) g/dL Albumin 2.4 L (3.5-5.0) g/dL Blood Type A Positive Blood Type Confirm Blood Type Recheck No Previous Record Bld Type Recheck Status CABO Indicated Antibody Screen NEGATIVE Crossmatch See Detail Spec Expiration Date 06/27/2019 - 232906/24/19 06/24/19 06/24/19 Range/Units 16:30 16:30 16:30 WBC (3.8-10.6) k/uL RBC (4.30-5.90) m/uL Hgb (13.0-17.5) gm/dL Hct (39.0-53.0) % MCV (80.0-100.0) fL MCH (25.0-35.0) pg MCHC (31.0-37.0) g/dL RDW (11.5-15.5) % Plt Count (150-450) k/uL Neutrophils % % Lymphocytes % % Monocytes % % Eosinophils % % Basophils % % Neutrophils # (1.3-7.7) k/uL Lymphocytes # (1.0-4.8) k/uL Monocytes # (0-1.0) k/uL Eosinophils # (0-0.7) k/uL Basophils # (0-0.2) k/uL Hypochromasia Poikilocytosis Anisocytosis Microcytosis PT 23.8 H (9.0-12.0) sec INR 2.5 H (<1.2) APTT 32.0 H (22.0-30.0) sec Sodium (137-145) mmol/L Potassium (3.5-5.1) mmol/L Chloride (98-107) mmol/L Carbon Dioxide (22-30) mmol/L Anion Gap mmol/L BUN (9-20) mg/dL Creatinine (0.66-1.25) mg/dL Est GFR (CKD-EPI)AfAm (>60 ml/min/1.73 sqM) Est GFR (CKD-EPI)NonAf (>60 ml/min/1.73 sqM) Glucose (74-99) mg/dL Plasma Lactic Acid Gurpreet 7.6 H* (0.7-2.0) mmol/L Calcium (8.4-10.2) mg/dL Magnesium (1.6-2.3) mg/dL Total Bilirubin (0.2-1.3) mg/dL AST (17-59) U/L ALT (21-72) U/L Alkaline Phosphatase (38-126) U/L Troponin I 0.043 H* (0.000-0.034) ng/mL Total Protein (6.3-8.2) g/dL Albumin (3.5-5.0) g/dL Blood Type Blood Type Confirm Blood Type Recheck Bld Type Recheck Status Antibody Screen Crossmatch Spec Expiration Date 06/24/19 Range/Units 16:30 WBC (3.8-10.6) k/uL RBC (4.30-5.90) m/uL Hgb (13.0-17.5) gm/dL Hct (39.0-53.0) % MCV (80.0-100.0) fL MCH (25.0-35.0) pg MCHC (31.0-37.0) g/dL RDW (11.5-15.5) % Plt Count (150-450) k/uL Neutrophils % % Lymphocytes % % Monocytes % % Eosinophils % % Basophils % % Neutrophils # (1.3-7.7) k/uL Lymphocytes # (1.0-4.8) k/uL Monocytes # (0-1.0) k/uL Eosinophils # (0-0.7) k/uL Basophils # (0-0.2) k/uL Hypochromasia Poikilocytosis Anisocytosis Microcytosis PT (9.0-12.0) sec INR (<1.2) APTT (22.0-30.0) sec Sodium (137-145) mmol/L Potassium (3.5-5.1) mmol/L Chloride (98-107) mmol/L Carbon Dioxide (22-30) mmol/L Anion Gap mmol/L BUN (9-20) mg/dL Creatinine (0.66-1.25) mg/dL Est GFR (CKD-EPI)AfAm (>60 ml/min/1.73 sqM) Est GFR (CKD-EPI)NonAf (>60 ml/min/1.73 sqM) Glucose (74-99) mg/dL Plasma Lactic Acid Gurpreet (0.7-2.0) mmol/L Calcium (8.4-10.2) mg/dL Magnesium (1.6-2.3) mg/dL Total Bilirubin (0.2-1.3) mg/dL AST (17-59) U/L ALT (21-72) U/L Alkaline Phosphatase (38-126) U/L Troponin I (0.000-0.034) ng/mL Total Protein (6.3-8.2) g/dL Albumin (3.5-5.0) g/dL Blood Type Blood Type Confirm A Positive Blood Type Recheck Bld Type Recheck Status Antibody Screen Crossmatch Spec Expiration Date - EKG Data -: EKG Interpreted by Me EKG Comments: EKG was obtained at 1634, rate is 85 rhythm is sinus there is normal axis, there are normal intervals, UT 148, QRS 1:30, QTC is 535. There are no acute ST e levations or there are ST depressions in leads 1 and V2 through V6. This is Concerning for ischemia likely secondary to profound anemia. Critical Care Time Critical Care Time: Yes Total Critical Care Time: 30 Critical Care Time: Critical Care Time Critical care time was exclusive of separately billable procedures and treating other patients and teaching time. Critical care was necessary to treat or prevent imminent or life-threatening deterioration. Given the critical condition in which the patient arrived, the patient was immediately assessed by myself and the nurse, and cardiac monitoring initiated due to the potential for rapid decompensation of the patient's clinical condition. During the course of the patients stay, I spent a considerable amount of time at the bedside performing serial re-evaluations of the patient's hemodynamic and clinical status because of the recognized potential threat to life or limb in this condition. I then had a chance to review not only all of the available current laboratory and radiographic studies obtained today, but I also reviewed old records available to me at the time. Additionally, any ancillary information available including [facility] records were reviewed. Sequential vital signs were obtained. Disposition Clinical Impression: Melena, Elevated troponin I level, Acute anemia, Lactic acidosis, Upper gastrointestinal hemorrhage Disposition: ADMITTED IP TO THIS HOSP Condition: Serious Is patient prescribed a controlled substance at d/c from ED?: No
[2019-06-24 16:52] LABS: Anisocytosis Moderate; Basophils # (A) 0.1 k/uL (0-0.2); Basophils % (A) 0 %; Eosinophils # (A) 0.1 k/uL (0-0.7); Eosinophils % (A) 0 %; Hypochromasia Marked; Lymphocytes # (A) 0.4 k/uL (1.0-4.8); Lymphocytes % (A) 2 %; MCH 24.6 pg (25.0-35.0); MCHC 30.2 g/dL (31.0-37.0); MCV 81.4 fL (80.0-100.0); Mean Platelet Volume 7.8; Microcytosis Slight; Monocytes # (A) 1.3 k/uL (0-1.0); Monocytes % (A) 7 %; Neutrophils # (A) 17.4 k/uL (1.3-7.7); Neutrophils % (A) 90 %; Platelet Count 254 k/uL (150-450); Poikilocytosis Slight; RBC 1.77 m/uL (4.30-5.90); RDW 20.6 % (11.5-15.5); WBC 19.4 k/uL (3.8-10.6)
[2019-06-24 17:02] LABS: HGB 4.4 gm/dL (13.0-17.5)
[2019-06-24 17:03] LABS: HCT 14.4 % (39.0-53.0)
[2019-06-24 17:06] LABS: Albumin 2.4 g/dL (3.5-5.0); Magnesium 2.7 mg/dL (1.6-2.3); Total Bilirubin 0.4 mg/dL (0.2-1.3); Total Protein 4.8 g/dL (6.3-8.2)
[2019-06-24 17:07] LABS: INR 2.5 (<1.2); Prothrombin Time 23.8 sec (9.0-12.0)
[2019-06-24] MEDS ORDERED: Kcentra PER PHARMACY 1 EACH MISC MISCELLANE PRN (17:07)
[2019-06-24 17:10] LABS: Potassium 4.6 mmol/L (3.5-5.1)
[2019-06-24] MEDS ORDERED: EMPTY BAG 1 BAG with HUMAN PROTHROMBIN COMPLX 1,629 UNIT IV STA (17:13)
[2019-06-24] MEDS ORDERED: PHYTONADIONE 10 MG in SODIUM CHLORIDE 0.9% 50 ML IVPB STA (17:24)
[2019-06-24] MEDS ORDERED: ONDANSETRON 4 MG/2 ML VIAL IVP PRN (17:33)
[2019-06-24] MEDS ORDERED: NALOXONE 0.4 MG/ML 1 ML VIAL IV PRN (17:33)
[2019-06-24] MEDS ORDERED: FUROSEMIDE 10 MG/ML 2 ML VIAL IV PRN (17:36)
--- NOTE | 2019-06-24 19:11 | XR ---
EXAMINATION TYPE: XR chest 1V portable DATE OF EXAM: 06/24/2019 COMPARISON: 01/25/2017 HISTORY: Chest pain TECHNIQUE: Single frontal view of the chest is obtained. FINDINGS: Heart and mediastinum are normal. There are sternal wires. Lungs are clear of infiltrate. There is no pleural effusion. There are chest leads. IMPRESSION: No active cardiopulmonary disease. Normal heart. No change.
[2019-06-24 19:46] LABS: Glucose,Whole Blood 172 mg/dL (75-99)
[2019-06-24 22:08] LABS: Anisocytosis Slight; Hypochromasia Moderate; MCH 24.7 pg (25.0-35.0); MCHC 30.9 g/dL (31.0-37.0); Mean Platelet Volume 8.7; Microcytosis Slight; Platelet Count 239 k/uL (150-450); Poikilocytosis Slight; RBC 2.87 m/uL (4.30-5.90); RDW 19.3 % (11.5-15.5)
[2019-06-24 22:11] LABS: HGB 7.1 gm/dL (13.0-17.5)
[2019-06-24 22:41] LABS: Glucose,Whole Blood 148 mg/dL (75-99)
[2019-06-24 22:45] LABS: Band Neutrophils % 3 %; Lymphocytes # (M) 1.32 k/uL (1.0-4.8); Metamyelocytes # (M) 0.76 k/uL (0); Metamyelocytes % 4 %; Monocytes # (M) 0.57 k/uL (0-1.0); Myelocytes # (M) 0.19 k/uL (0); Myelocytes % 1 %; Neutrophils % (M) 85 %; Nucleated Red Blood Cells 2 /100 WBC (0-0); Total Cells Counted 200; WBC 18.9 k/uL (3.8-10.6)
[2019-06-24 22:46] LABS: Polychromasia Present
[2019-06-25 02:01] LABS: Glucose,Whole Blood 155 mg/dL (75-99)
[2019-06-25] MEDS: SODIUM CHLORIDE 0.9% 1,000 ML IV SCH ×2 (04:43→15:29)
[2019-06-25 05:08] LABS: INR 1.2 (<1.2); Prothrombin Time 12.4 sec (9.0-12.0)
[2019-06-25 05:12] LABS: Anisocytosis Slight; Hypochromasia Slight; MCH 24.9 pg (25.0-35.0); MCHC 31.6 g/dL (31.0-37.0); MCV 78.8 fL (80.0-100.0); Mean Platelet Volume 8.4; Microcytosis Slight; Platelet Count 216 k/uL (150-450); Poikilocytosis Slight; RBC 2.29 m/uL (4.30-5.90); RDW 19.5 % (11.5-15.5); WBC 14.7 k/uL (3.8-10.6)
[2019-06-25 05:15] LABS: Calcium 8.6 mg/dL (8.4-10.2)
[2019-06-25 05:16] LABS: Potassium 3.8 mmol/L (3.5-5.1)
[2019-06-25 05:38] LABS: HGB 5.7 gm/dL (13.0-17.5)
[2019-06-25 06:51] LABS: Glucose,Whole Blood 114 mg/dL (75-99)
--- NOTE | 2019-06-25 07:33 | XR ---
EXAMINATION TYPE: XR chest 1V portable DATE OF EXAM: 06/25/2019 COMPARISON: 06/24/2019 HISTORY: Shortness of breath TECHNIQUE: Single frontal view of the chest is obtained. FINDINGS: There are patchy opacities overlying the left cardiac apex and deep to the right chest EKG leads. Cardiomediastinal silhouette is mildly enlarged. Pulmonary vascular prominence is seen withou t interstitial edema. Cardiomediastinal silhouette is enlarged with post CABG changes. No acute osseo us pathology. IMPRESSION: New left basilar and right midlung opacity suspicious for multifocal pneumonia.
[2019-06-25] MEDS ORDERED: PANTOPRAZOLE 40 MG/10 ML VIAL IVP SCH (09:30)
[2019-06-25 11:35] LABS: Glucose,Whole Blood 130 mg/dL (75-99)
[2019-06-25] MEDS ORDERED: LORazepam 1 MG TAB PO PRN (11:37)
[2019-06-25] MEDS ORDERED: HYDROcodone/APAP 7.5-325MG 1 EACH TAB PO PRN (11:37)
--- NOTE | 2019-06-25 12:15 | P.CNPUL ---
History of Present Illness Consult date: 06/25/19 Chief complaint: GI bleed History of present illness: A 69-year-old male patient known history of cardiac disease, known history of coronary artery disease with previous bypass surgery and previous aortic valve replacement with a bioprosthetic aortic valve, known history of chronic atrial fibrillation maintained on anticoagulation with warfarin. The patient came in with melanotic stool and in the emergency department the patient apparently was having several bouts prior to him coming to the hospital and another bout was noted in the ED. No reported nausea. No vomiting. No abdominal pain. He was taken his anticoagulation. His INR was 2.5 at the time of admission. The patient was given vitamin K, fresh frozen plasma and case sent for. This was given to him in the emergency. Initial lactic acid level was at 7.6 and was so distressed station lactic acid level came down to 1.1 after receiving a total of 3 L of IV fluids. The hemoglobin initially was at 4.4. After receiving 2 units the hemoglobin came up to 7.1. Subsequently dropped down to 5.7 this morning and the patient will be receiving another 2 units of packed RBCs. He is on IV Protonix. GI is on consult. At the time of my evaluation this morning, the patient was hemodynamic is stable. His blood pressure was stable without any pressors. No significant tachycardia. Denies having any specific complaints. 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 I do see a scar over his anterior neck from a previous check estimate tube insertion probably related to prolonged mechanical ventilation. His previous history of scoping whether his upper or lower scoping is not known. Not known to have any form of chronic liver disease. Doesn't take any form of nonsteroidal anti-inflammatory medication. No reported alcoholism history. No previous bouts of GI bleed based on our records. The patient denies having any chest pain. He does have a troponin leak. These EKG showing a normal sinus rhythm with intraventricular conduction delay/block and some ST segment depression in the anterolateral leads suggestive of subendocardial ischemia. Review of Systems Able to take it for review of system as the patient seems to be mentally challenged and a poor historian. The history given by him is quite unreliable. ROS unobtainable: due to mental status Past Medical History Past Medical History: Atrial Fibrillation, GERD/Reflux, Hypertension Additional Past Medical History / Comment(s): Coronary artery disease, previous bypass surgery, history of chronic atrial fibrillation, hypertension, history of psychiatric disorder and intellectual delay, hyperlipidemia, acid reflux, previous history of aortic valve replacement, bioprosthetic valve, previous history of ESBL producing E. coli urinary tract infection History of Any Multi-Drug Resistant Organisms: ESBL Date of last positivie culture/infection: 09/28/16 MDRO Source:: BLOOD E.COLI Past Surgical History: Unable to Obtain Additional Past Surgical History / Comment(s): Previous Tracheostomy, aortic valve replacement/bioprosthetic valve and coronary artery bypass surgery, PEG tube with removal Past Anesthesia/Blood Transfusion Reactions: No Reported Reaction Past Psychological History: Unable to Obtain Smoking Status: Former smoker Past Alcohol Use History: Unable to Obtain Past Drug Use History: Unable to Obtain - Past Family History Father History Unknown: Yes Family Medical History: Unable to Obtain Mother History Unknown: Yes Family Medical History: Unable to Obtain Medications and Allergies Home Medications Medication Instructions Recorded Confirmed Type Amiodarone [Cordarone] 200 mg PO DAILY 09/28/16 06/24/19 History Melatonin 10 mg PO HS 09/28/16 06/24/19 History Metoprolol Tartrate [Lopressor] 12.5 mg PO BID 09/28/16 06/24/19 History Ranitidine HCl 150 mg PO BID 09/28/16 06/24/19 History Tamsulosin HCl [Flomax] 0.4 mg PO DAILY 09/28/16 06/24/19 History HYDROcodone/APAP 7.5-325MG [Max 1 tab PO Q6H PRN 01/25/17 06/24/19 History 7.5-325] LORazepam [Ativan] 1 mg PO Q8H PRN 01/25/17 06/24/19 History Magnesium Oxide [Mag-Ox] 400 mg PO BID 01/25/17 06/24/19 History Warfarin [Coumadin] 2 mg PO SUMOWETHFRSA 01/25/17 06/24/19 History Atorvastatin [Lipitor] 5 mg PO HS 06/24/19 06/24/19 History Sennosides [Senna] 17.2 mg PO HS 06/24/19 06/24/19 History Sertraline [Zoloft] 100 mg PO DAILY 06/24/19 06/24/19 History Ursodiol 300 mg PO BID 06/24/19 06/24/19 History risperiDONE 3 mg PO BID 06/24/19 06/24/19 History Allergies Allergy/AdvReac Type Severity Reaction Status Date / Time No Known Allergies Allergy Verified 06/24/19 16:40 Physical Exam Vitals: Vital Signs Temp Pulse Pulse Resp BP BP Pulse Ox 06/25/19 11:49 13 06/25/19 11:30 62 13 127/58 96 06/25/19 11:00 63 23 132/62 97 06/25/19 10:30 62 13 131/59 97 06/25/19 10:00 62 21 131/59 97 06/25/19 09:30 62 20 132/59 97 06/25/19 09:00 63 21 127/66 97 06/25/19 08:50 98.2 F 62 18 127/66 97 06/25/19 08:30 63 20 120/55 98 06/25/19 08:27 98.2 F 61 18 120/55 95 06/25/19 08:20 98.0 F 65 18 120/85 06/25/19 08:10 98.2 F 62 18 120/55 95 06/25/19 08:00 98.2 F 62 22 122/53 96 06/25/19 07:30 62 19 121/55 98 06/25/19 07:00 63 20 113/56 97 06/25/19 06:43 98.7 F 61 12 113/56 98 06/25/19 06:30 64 24 117/53 96 06/25/19 06:13 98.3 F 63 15 117/53 96 06/25/19 06:03 98.4 F 64 16 115/72 96 06/25/19 06:00 64 12 114/54 96 06/25/19 05:30 64 21 115/56 97 06/25/19 05:00 63 21 105/57 98 06/25/19 04:30 64 17 121/58 99 06/25/19 04:00 98.2 F 66 16 116/59 99 06/25/19 03:48 20 06/25/19 03:30 64 20 112/57 98 06/25/19 03:00 65 25 H 116/59 97 06/25/19 02:30 66 22 120/106 97 06/25/19 02:00 65 16 106/57 99 06/25/19 01:36 98.5 F 64 20 97/51 98 06/25/19 01:30 65 21 108/51 97 06/25/19 01:00 66 15 107/67 97 06/25/19 00:44 98.2 F 65 12 107/67 99 06/25/19 00:42 70 23 125/57 97 08 00:30 66 12 115/67 98 06/25/19 00:14 98.2 F 64 12 115/67 99 06/25/19 00:04 98.3 F 65 18 114/62 98 08 00:00 97.6 F 65 13 124/57 98 06/24/19 23:50 98.3 F 64 12 129/65 98 06/24/19 23:30 66 21 127/98 98 06/24/19 23:00 68 20 132/59 97 06/24/19 22:55 97.6 F 66 15 127/64 98 06/24/19 22:30 68 15 114/61 98 06/24/19 22:25 97.9 F 67 16 131/74 97 06/24/19 22:15 97.8 F 68 14 114/61 06/24/19 22:00 65 16 157/121 98 06/24/19 21:30 67 14 147/64 98 06/24/19 21:05 97.6 F 68 14 147/64 06/24/19 21:00 69 20 150/67 99 06/24/19 20:30 71 21 137/51 100 06/24/19 20:18 97.5 F L 71 17 149/70 97 06/24/19 20:00 98.0 F 70 17 132/59 99 06/24/19 19:48 97.7 F 69 12 132/59 99 06/24/19 19:38 97.5 F L 70 14 131/57 99 07 19:33 98.3 F 72 12 131/57 98 07 19:30 97.9 F 73 13 119/58 97 07 19:28 98.3 F 72 12 131/57 98 07 19:10 73 10 L 121/60 06/24/19 18:47 97.5 F L 70 14 131/57 99 06/24/19 18:30 78 9 L 144/58 06/24/19 18:16 97.9 F 68 14 146/62 99 06/24/19 18:00 72 14 101/56 100 06/24/19 17:30 75 23 96/50 99 06/24/19 17:24 98.0 F 78 16 101/56 06/24/19 17:19 77 19 96/50 99 06/24/19 17:14 97.8 F 74 16 99/56 06/24/19 17:07 97.8 F 78 18 103/57 06/24/19 16:18 97.7 F 83 18 86/56 100 Intake and Output 06/24/19 06/25/19 06/25/19 22:59 06:59 14:59 Intake Total 2120 2526 1120 Output Total 350 660 300 Balance 1770 1866 820 Intake: IV 300 900 300 0.9@100 300 900 300 Sodium Chloride 0.9% 500 0 ml 500 ml @ 999 mls/hr IV .Q31M STA Rx#:[id number] Amount of Fluid Infused ( 1200 ml) Oral 200 Blood Product 620 1426 820 Ffp 24 Cpd Unit 288 [id number] Ffp 24 Cpd Unit 0 273 [id number] Rc As-1 Unit 0 310 [id number] Rc As-1 Unit 0 [id number] Rc Pheresis 2 As3 Unit 0 [id number] Rc Pheresis 2 As3 Unit 0 [id number] Output: Urine 350 660 300 Other: Voiding Method Indwelling Catheter Indwelling Catheter Indwelling Catheter Weight 68.039 kg 82.1 kg The patient appeared well nourished and normally developed. Vital signs as do cumented. Head exam is unremarkable. No scleral icterus or corneal arcus noted. Neck is without jugular venous distension, thyromegaly, or carotid bruits. Carotid upstrokes are brisk bilaterally. As a scar of a previous tracheostomy tube over the anterior neck Lungs are clear to auscultation and percussion. Cardiac exam reveals the PMI to be normally sized and situated. Rhythm is regular. First and second heart sounds normal. No murmurs, rubs or gallops. Abdominal exam reveals normal bowel sounds, no masses, no organomegaly and no aortic enlargement. Patient is scar of a previous thoracotomy over the anterior chest Extremities are nonedematous and both femoral and pedal pulses are normal.Examination of the skin revealed no evidence of significant rashes, suspicious appearing nevi or other concerning lesions. Neurologically the patient is awake and alert and is no focal neurological deficits. Results - Laboratory Findings CBC and BMP: 06/25/19 04:35 06/25/19 04:35 PT/INR, D-dimer PT 12.4 sec (9.0-12.0) H 06/25/19 04:35 INR 1.2 (<1.2) H 06/25/19 04:35 Abnormal lab findings: Abnormal Labs 06/24/19 06/24/19 06/24/19 16:30 16:30 16:30 WBC 19.4 H RBC 1.77 L Hgb 4.4 L* Hct 14.4 L* MCV MCH 24.6 L MCHC 30.2 L RDW 20.6 H Neutrophils # 17.4 H Neutrophils # (Manual) Lymphocytes # 0.4 L Monocytes # 1.3 H Metamyelocytes # (Man) Myelocytes # (Manual) Nucleated RBCs PT INR APTT Sodium Chloride 108 H Carbon Dioxide 14 L BUN 82 H Creatinine 1.77 H Glucose 219 H POC Glucose (mg/dL) Plasma Lactic Acid Gurpreet Magnesium 2.7 H Troponin I Total Protein 4.8 L Albumin 2.4 L Crossmatch See Detail 06/24/19 06/24/19 06/24/19 16:30 16:30 16:30 WBC RBC Hgb Hct MCV MCH MCHC RDW Neutrophils # Neutrophils # (Manual) Lymphocytes # Monocytes # Metamyelocytes # (Man) Myelocytes # (Manual) Nucleated RBCs PT 23.8 H INR 2.5 H APTT 32.0 H Sodium Chloride Carbon Dioxide BUN Creatinine Glucose POC Glucose (mg/dL) Plasma Lactic Acid Gurpreet 7.6 H* Magnesium Troponin I 0.043 H* Total Protein Albumin Crossmatch 06/24/19 06/24/19 06/24/19 19:26 20:41 21:27 WBC 18.9 H RBC 2.87 L Hgb 7.1 L D Hct 23.0 L MCV MCH 24.7 L MCHC 30.9 L RDW 19.3 H Neutrophils # Neutrophils # (Manual) 16.60 H Lymphocytes # Monocytes # Metamyelocytes # (Man) 0.76 H Myelocytes # (Manual) 0.19 H Nucleated RBCs 2 H PT INR APTT Sodium Chloride Carbon Dioxide BUN Creatinine Glucose POC Glucose (mg/dL) 172 H Plasma Lactic Acid Gurpreet 3.6 H* Magnesium Troponin I Total Protein Albumin Crossmatch 06/24/19 06/25/19 06/25/19 22:40 01:58 04:35 WBC 14.7 H RBC 2.29 L Hgb 5.7 L* Hct 18.0 L* MCV 78.8 L MCH 24.9 L MCHC RDW 19.5 H Neutrophils # Neutrophils # (Manual) Lymphocytes # Monocytes # Metamyelocytes # (Man) Myelocytes # (Manual) Nucleated RBCs PT INR APTT Sodium Chloride Carbon Dioxide BUN Creatinine Glucose POC Glucose (mg/dL) 148 H 155 H Plasma Lactic Acid Gurpreet Magnesium Troponin I Total Protein Albumin Crossmatch 06/25/19 06/25/19 06/25/19 04:35 04:35 06:49 WBC RBC Hgb Hct MCV MCH MCHC RDW Neutrophils # Neutrophils # (Manual) Lymphocytes # Monocytes # Metamyelocytes # (Man) Myelocytes # (Manual) Nucleated RBCs PT 12.4 H INR 1.2 H APTT Sodium 135 L Chloride Carbon Dioxide BUN 72 H Creatinine 1.78 H Glucose 109 H POC Glucose (mg/dL) 114 H Plasma Lactic Acid Gurpreet Magnesium Troponin I Total Protein Albumin Crossmatch 06/25/19 11:32 WBC RBC Hgb Hct MCV MCH MCHC RDW Neutrophils # Neutrophils # (Manual) Lymphocytes # Monocytes # Metamyelocytes # (Man) Myelocytes # (Manual) Nucleated RBCs PT INR APTT Sodium Chloride Carbon Dioxide BUN Creatinine Glucose POC Glucose (mg/dL) 130 H Plasma Lactic Acid Gurpreet Magnesium Troponin I Total Protein Albumin Crossmatch Assessment and Plan Plan: 1 acute GI bleed, likely of an upper GI source as the patient presented with melanotic stool Any hemoglobin of 4.4. The patient was on anticoagulation with warfarin at time of admission with an INR of 2.5 and a coagulation profile is be en reversed. For now, the patient has been was resuscitated IV fluids and received a total of 4 units of active RBC and the follow-up hemoglobin is still pending for now. The patient is not showing any signs of ongoing bleed. Lactic acidosis is improved. Correlation profile as reversed. 2 acute lactic acidosis, recovered 3 abnormal troponin with evidence of subendocardial injury of the myocardium, could be related to profound anemia in the setting of an upper GI bleed 4 coronary artery disease 5 history of aortic valve replacement 6 chronic atrial fibrillation current rhythm is sinus with a component of bundle-branch block pattern. 7 intellectual delay with underlying psychiatric disorder maintained on risperidone on an outpatient basis 8 hypertension 9 hyperlipidemia 10 BPH 11 previous history of E. coli urine checked infection with sepsis related to ESBL organism 12 history of sepsis with prolonged mechanical ventilation requiring intubation, tracheostomy tube insertion and removal Plan Continue IV fluids. Monitor hemoglobin. IV Protonix. GI consultation. Cardi ology consultation regarding the troponin leak which probably is related to low hemoglobin and upper GI bleed. Hold warfarin for now. Correlation profile as reversed in lactic acidosis improved. Keep in ICU. We'll continue to follow.
[2019-06-25 13:04] LABS: Anisocytosis Slight; HCT 28.6 % (39.0-53.0); Hypochromasia Slight; MCH 27.3 pg (25.0-35.0); MCHC 33.1 g/dL (31.0-37.0); MCV 82.4 fL (80.0-100.0); Mean Platelet Volume 8.2; Microcytosis Slight; Platelet Count 204 k/uL (150-450); Poikilocytosis Slight; RBC 3.47 m/uL (4.30-5.90)
[2019-06-25 13:10] LABS: HGB 9.4 gm/dL (13.0-17.5)
[2019-06-25 13:49] VITALS: BMI 25.9
[2019-06-25] MEDS: risperiDONE 1 MG TAB PO SCH ×2 (15:24→21:45)
[2019-06-25] MEDS: SERTRALINE 100 MG TAB PO SCH (15:24)
[2019-06-25] MEDS: AMIODARONE 200 MG TAB PO SCH (15:28)
[2019-06-25] MEDS: METOPROLOL TARTRATE 12.5 MG TAB PO SCH ×2 (15:28→21:45)
[2019-06-25] MEDS: TAMSULOSIN 0.4 MG CAP.ER.24H PO SCH (15:28)
[2019-06-25] MEDS: MAGNESIUM OXIDE 400 MG TAB PO SCH ×2 (15:28→21:45)
--- NOTE | 2019-06-25 16:43 | P.HPIM ---
History of Present Illness H&P Date: 06/25/19 Chief Complaint: Dark stools History of presenting complaint: This is a 69-year-old patient of visiting physician Dr. Kelly. Chronic stable medical conditions include coronary artery disease with WA in 2017, persistent atrial flutter, BPH, chronic kidney disease stage III, hypertension, GERD, bilateral foot drop with contracture. Patient lives with his brother. Uses a w heelchair to get about. Patient's had 2 or 3 days of black stools at home. Was discovered to have a hemoglobin of 4.4 in the ER. 2 units of blood were given. Admitted to the ICU. Patient now the best of historians. Questionable gout pain. Does feel weak and tired. Admitted for the same. GI was consulted. Review of systems: GEN.: Tired and dizzy EYES: None HEENT: None NECK: None RESPIRATORY: Minimal short of breath CARDIOVASCULAR: None GASTROINTESTINAL: Questionable epigastric discomfort, dark stools GENITOURINARY: None MUSCULOSKELETAL: Pain in the joints LYMPHATICS: None HEMATOLOGICAL: None PSYCHIATRY: [Forgetful NEUROLOGICAL: Bilateral foot drop Past medical history: To include Coronary artery disease with WA in 2017, persistent atrial flutter, BPH, chronic kidney disease stage III, hypertension, GERD, bilateral foot drop with contracture. Intellectual delay, aortic valve replacement with a bioprosthetic valve, Coronary bypass and aortic valve replacement Social history: Patient did smoke and drink alcohol in the past. Lives With his brother. Uses a wheelchair to get about. Family history: Reviewed, noncontributory to presentation Physical examination: VITAL SIGNS: [97.8, 18, 86 x 56, 100% room air] GENERAL: [Average built, laying in bed, a bit tired]. EYES: [Pupils equal. Conjunctiva pale l. HEENT: [External appearance of nose and ears normal, oral cavity grossly normal]. NECK: [JVD not raised; masses not palpable]. HEART: [First and second heart sounds are normal; no edema]. LUNGS:[ Respiratory rate normal; decreased breath sounds]. ABDOMEN: [Soft, nontender, liver spleen not palpable, no masses palpable]. PSYCH: [Able to answer simple questions]l. NEUROLOGICAL: [Cranial nerves grossly intact; no facial asymmetry, power and sensation grossly intact]. LYMPHATICS: [No lymph nodes palpable in the axilla and neck EXTREMITIES: Bilateral foot drop with evidence of early ischemia in both the feet INVESTIGATIONS, reviewed in the clinical context: White count 19.4 hemoglobin 4.4 platelets 254 INR 2.5 potassium 4.6 BUN 82 creatinine 1.77] Albumin 2.4 EKG-ST segment depression in anterolateral leads Chest x-ray film personally reviewed by me-lungs are clear Assessment: -Acute severe GI bleed in a patient presented to talk stools, likely upper -Acute severe blood loss anemia from GI bleed hemoglobin 4.4, symptomatic -Coronary artery disease with prior WA in 2017 and of bypass -BPH -Chronic kidney disease stage III from nephrosclerosis -Essential hypertension -GERD -Bilateral foot drop with contractures, chronic -Chronic intellectual delay Plan: GI was consulted. Pending endoscopy. Patient is on a PPI. H&H will be closely followed. Other home medications are to be renewed. Patient admitted to the ICU. Manager Program and GI was consulted. Past Medical History Past Medical History: Atrial Fibrillation, GERD/Reflux, Hypertension Additional Past Medical History / Comment(s): irregular heart rhythm History of Any Multi-Drug Resistant Organisms: ESBL Date of last positivie culture/infection: 09/28/16 MDRO Source:: BLOOD E.COLI Past Surgical History: Unable to Obtain Additional Past Surgical History / Comment(s): Previous Tracheostomy, Porcine Valve, PEG tube with removal Past Anesthesia/Blood Transfusion Reactions: No Reported Reaction Past Psychological History: Unable to Obtain Smoking Status: Former smoker Past Alcohol Use History: Unable to Obtain Past Drug Use History: Unable to Obtain - Past Family History Father History Unknown: Yes Family Medical History: Unable to Obtain Mother History Unknown: Yes Family Medical History: Unable to Obtain Medications and Allergies Home Medications Medication Instructions Recorded Confirmed Type Amiodarone [Cordarone] 200 mg PO DAILY 09/28/16 06/24/19 History Melatonin 10 mg PO HS 09/28/16 06/24/19 History Metoprolol Tartrate [Lopressor] 12.5 mg PO BID 09/28/16 06/24/19 History Ranitidine HCl 150 mg PO BID 09/28/16 06/24/19 History Tamsulosin HCl [Flomax] 0.4 mg PO DAILY 09/28/16 06/24/19 History HYDROcodone/APAP 7.5-325MG [[place] 1 tab PO Q6H PRN 01/25/17 06/24/19 History 7.5-325] LORazepam [Ativan] 1 mg PO Q8H PRN 01/25/17 06/24/19 History Magnesium Oxide [Mag-Ox] 400 mg PO BID 01/25/17 06/24/19 History Warfarin [Coumadin] 2 mg PO SUMOWETHFRSA 01/25/17 06/24/19 History Atorvastatin [Lipitor] 5 mg PO HS 06/24/19 06/24/19 History Sennosides [Senna] 17.2 mg PO HS 06/24/19 06/24/19 History Sertraline [Zoloft] 100 mg PO DAILY 06/24/19 06/24/19 History Ursodiol 300 mg PO BID 06/24/19 06/24/19 History risperiDONE 3 mg PO BID 06/24/19 06/24/19 History Allergies Allergy/AdvReac Type Severity Reaction Status Date / Time No Known Allergies Allergy Verified 06/24/19 16:40 Physical Exam Vitals: Vital Signs Temp Pulse Pulse Resp BP BP Pulse Ox 06/25/19 09:00 63 21 127/66 97 06/25/19 08:50 98.2 F 62 18 127/66 97 06/25/19 08:30 63 20 120/55 98 06/25/19 08:27 98.2 F 61 18 120/55 95 06/25/19 08:20 98.0 F 65 18 120/85 06/25/19 08:10 98.2 F 62 18 120/55 95 06/25/19 08:00 98.2 F 62 22 122/53 96 06/25/19 07:30 62 19 121/55 98 06/25/19 07:00 63 20 113/56 97 06/25/19 06:43 98.7 F 61 12 113/56 98 06/25/19 06:30 64 24 117/53 96 06/25/19 06:13 98.3 F 63 15 117/53 96 06/25/19 06:03 98.4 F 64 16 115/72 96 06/25/19 06:00 64 12 114/54 96 06/25/19 05:30 64 21 115/56 97 06/25/19 05:00 63 21 105/57 98 06/25/19 04:30 64 17 121/58 99 06/25/19 04:00 98.2 F 66 16 116/59 99 06/25/19 03:48 20 06/25/19 03:30 64 20 112/57 98 06/25/19 03:00 65 25 H 116/59 97 06/25/19 02:30 66 22 120/106 97 06/25/19 02:00 65 16 106/57 99 06/25/19 01:36 98.5 F 64 20 97/51 98 06/25/19 01:30 65 21 108/51 97 06/25/19 01:00 66 15 107/67 97 06/25/19 00:44 98.2 F 65 12 107/67 99 06/25/19 00:42 70 23 125/57 97 06/25/19 00:30 66 12 115/67 98 06/25/19 00:14 98.2 F 64 12 115/67 99 06/25/19 00:04 98.3 F 65 18 114/62 98 06/25/19 00:00 97.6 F 65 13 124/57 98 06/24/19 23:50 98.3 F 64 12 129/65 98 06/24/19 23:30 66 21 127/98 98 06/24/19 23:00 68 20 132/59 97 06/24/19 22:55 97.6 F 66 15 127/64 98 06/24/19 22:30 68 15 114/61 98 06/24/19 22:25 97.9 F 67 16 131/74 97 06/24/19 22:15 97.8 F 68 14 114/61 06/24/19 22:00 65 16 157/121 98 06/24/19 21:30 67 14 147/64 98 06/24/19 21:05 97.6 F 68 14 147/64 06/24/19 21:00 69 20 150/67 99 06/24/19 20:30 71 21 137/51 100 06/24/19 20:18 97.5 F L 71 17 149/70 97 07 20:00 98.0 F 70 17 132/59 99 06/24/19 19:48 97.7 F 69 12 132/59 99 06/24/19 19:38 97.5 F L 70 14 131/57 99 06/24/19 19:33 98.3 F 72 12 131/57 98 06/24/19 19:30 97.9 F 73 13 119/58 97 06/24/19 19:28 98.3 F 72 12 131/57 98 06/24/19 19:10 73 10 L 121/60 06/24/19 18:47 97.5 F L 70 14 131/57 99 06/24/19 18:30 78 9 L 144/58 06/24/19 18:16 97.9 F 68 14 146/62 99 06/24/19 18:00 72 14 101/56 100 06/24/19 17:30 75 23 96/50 99 06/24/19 17:24 98.0 F 78 16 101/56 06/24/19 17:19 77 19 96/50 99 06/24/19 17:14 97.8 F 74 16 99/56 06/24/19 17:07 97.8 F 78 18 103/57 06/24/19 16:18 97.7 F 83 18 86/56 100 Intake and Output 06/24/19 06/25/19 06/25/19 22:59 06:59 14:59 Intake Total 2120 2526 720 Output Total 350 660 300 Balance 1770 1866 420 Intake: IV 300 900 100 0.9@100 300 900 100 Sodium Chloride 0.9% 500 0 ml 500 ml @ 999 mls/hr IV .Q31M STA Rx#:[id number] Amount of Fluid Infused ( 1200 ml) Oral 200 Blood Product 620 1426 620 Ffp 24 Cpd Unit 288 [id number] Ffp 24 Cpd Unit 0 273 [id number] Rc As-1 Unit 0 310 [id number] Rc As-1 Unit 0 [id number] Rc Pheresis 2 As3 Unit 0 [id number] Rc Pheresis 2 As3 Unit 0 [id number] Output: Urine 350 660 300 Other: Voiding Method Indwelling Catheter Indwelling Catheter Indwelling Catheter Weight 68.039 kg 82.1 kg Results CBC & Chem 7: 06/25/19 11:53 06/25/19 04:35 Labs: Abnormal Lab Results - Last 24 Hours (Table) 06/24/19 06/24/19 06/24/19 Range/Units 16:30 16:30 16:30 WBC 19.4 H (3.8-10.6) k/uL RBC 1.77 L (4.30-5.90) m/uL Hgb 4.4 L* (13.0-17.5) gm/dL Hct 14.4 L* (39.0-53.0) % MCV (80.0-100.0) fL MCH 24.6 L (25.0-35.0) pg MCHC 30.2 L (31.0-37.0) g/dL RDW 20.6 H (11.5-15.5) % Neutrophils # 17.4 H (1.3-7.7) k/uL Neutrophils # (Manual) (1.3-7.7) k/uL Lymphocytes # 0.4 L (1.0-4.8) k/uL Monocytes # 1.3 H (0-1.0) k/uL Metamyelocytes # (Man) (0) k/uL Myelocytes # (Manual) (0) k/uL Nucleated RBCs (0-0) /100 WBC PT (9.0-12.0) sec INR (<1.2) APTT (22.0-30.0) sec Sodium (137-145) mmol/L Chloride 108 H (98-107) mmol/L Carbon Dioxide 14 L (22-30) mmol/L BUN 82 H (9-20) mg/dL Creatinine 1.77 H (0.66-1.25) mg/dL Glucose 219 H (74-99) mg/dL POC Glucose (mg/dL) (75-99) mg/dL Plasma Lactic Acid Gurpreet (0.7-2.0) mmol/L Magnesium 2.7 H (1.6-2.3) mg/dL Troponin I (0.000-0.034) ng/mL Total Protein 4.8 L (6.3-8.2) g/dL Albumin 2.4 L (3.5-5.0) g/dL Crossmatch See Detail 06/24/19 06/24/19 06/24/19 Range/Units 16:30 16:30 16:30 WBC (3.8-10.6) k/uL RBC (4.30-5.90) m/uL Hgb (13.0-17.5) gm/dL Hct (39.0-53.0) % MCV (80.0-100.0) fL MCH (25.0-35.0) pg MCHC (31.0-37.0) g/dL RDW (11.5-15.5) % Neutrophils # (1.3-7.7) k/uL Neutrophils # (Manual) (1.3-7.7) k/uL Lymphocytes # (1.0-4.8) k/uL Monocytes # (0-1.0) k/uL Metamyelocytes # (Man) (0) k/uL Myelocytes # (Manual) (0) k/uL Nucleated RBCs (0-0) /100 WBC PT 23.8 H (9.0-12.0) sec INR 2.5 H (<1.2) APTT 32.0 H (22.0-30.0) sec Sodium (137-145) mmol/L Chloride (98-107) mmol/L Carbon Dioxide (22-30) mmol/L BUN (9-20) mg/dL Creatinine (0.66-1.25) mg/dL Glucose (74-99) mg/dL POC Glucose (mg/dL) (75-99) mg/dL Plasma Lactic Acid Gurpreet 7.6 H* (0.7-2.0) mmol/L Magnesium (1.6-2.3) mg/dL Troponin I 0.043 H* (0.000-0.034) ng/mL Total Protein (6.3-8.2) g/dL Albumin (3.5-5.0) g/dL Crossmatch 06/24/19 06/24/19 06/24/19 Range/Units 19:26 20:41 21:27 WBC 18.9 H (3.8-10.6) k/uL RBC 2.87 L (4.30-5.90) m/uL Hgb 7.1 L D (13.0-17.5) gm/dL Hct 23.0 L (39.0-53.0) % MCV (80.0-100.0) fL MCH 24.7 L (25.0-35.0) pg MCHC 30.9 L (31.0-37.0) g/dL RDW 19.3 H (11.5-15.5) % Neutrophils # (1.3-7.7) k/uL Neutrophils # (Manual) 16.60 H (1.3-7.7) k/uL Lymphocytes # (1.0-4.8) k/uL Monocytes # (0-1.0) k/uL Metamyelocytes # (Man) 0.76 H (0) k/uL Myelocytes # (Manual) 0.19 H (0) k/uL Nucleated RBCs 2 H (0-0) /100 WBC PT (9.0-12.0) sec INR (<1.2) APTT (22.0-30.0) sec Sodium (137-145) mmol/L Chloride (98-107) mmol/L Carbon Dioxide (22-30) mmol/L BUN (9-20) mg/dL Creatinine (0.66-1.25) mg/dL Glucose (74-99) mg/dL POC Glucose (mg/dL) 172 H (75-99) mg/dL Plasma Lactic Acid Gurpreet 3.6 H* (0.7-2.0) mmol/L Magnesium (1.6-2.3) mg/dL Troponin I (0.000-0.034) ng/mL Total Protein (6.3-8.2) g/dL Albumin (3.5-5.0) g/dL Crossmatch 06/24/19 06/25/19 06/25/19 Range/Units 22:40 01:58 04:35 WBC 14.7 H (3.8-10.6) k/uL RBC 2.29 L (4.30-5.90) m/uL Hgb 5.7 L* (13.0-17.5) gm/dL Hct 18.0 L* (39.0-53.0) % MCV 78.8 L (80.0-100.0) fL MCH 24.9 L (25.0-35.0) pg MCHC (31.0-37.0) g/dL RDW 19.5 H (11.5-15.5) % Neutrophils # (1.3-7.7) k/uL Neutrophils # (Manual) (1.3-7.7) k/uL Lymphocytes # (1.0-4.8) k/uL Monocytes # (0-1.0) k/uL Metamyelocytes # (Man) (0) k/uL Myelocytes # (Manual) (0) k/uL Nucleated RBCs (0-0) /100 WBC PT (9.0-12.0) sec INR (<1.2) APTT (22.0-30.0) sec Sodium (137-145) mmol/L Chloride (98-107) mmol/L Carbon Dioxide (22-30) mmol/L BUN (9-20) mg/dL Creatinine (0.66-1.25) mg/dL Glucose (74-99) mg/dL POC Glucose (mg/dL) 148 H 155 H (75-99) mg/dL Plasma Lactic Acid Gurpreet (0.7-2.0) mmol/L Magnesium (1.6-2.3) mg/dL Troponin I (0.000-0.034) ng/mL Total Protein (6.3-8.2) g/dL Albumin (3.5-5.0) g/dL Crossmatch 06/25/19 06/25/19 06/25/19 Range/Units 04:35 04:35 06:49 WBC (3.8-10.6) k/uL RBC (4.30-5.90) m/uL Hgb (13.0-17.5) gm/dL Hct (39.0-53.0) % MCV (80.0-100.0) fL MCH (25.0-35.0) pg MCHC (31.0-37.0) g/dL RDW (11.5-15.5) % Neutrophils # (1.3-7.7) k/uL Neutrophils # (Manual) (1.3-7.7) k/uL Lymphocytes # (1.0-4.8) k/uL Monocytes # (0-1.0) k/uL Metamyelocytes # (Man) (0) k/uL Myelocytes # (Manual) (0) k/uL Nucleated RBCs (0-0) /100 WBC PT 12.4 H (9.0-12.0) sec INR 1.2 H (<1.2) APTT (22.0-30.0) sec Sodium 135 L (137-145) mmol/L Chloride (98-107) mmol/L Carbon Dioxide (22-30) mmol/L BUN 72 H (9-20) mg/dL Creatinine 1.78 H (0.66-1.25) mg/dL Glucose 109 H (74-99) mg/dL POC Glucose (mg/dL) 114 H (75-99) mg/dL Plasma Lactic Acid Gurpreet (0.7-2.0) mmol/L Magnesium (1.6-2.3) mg/dL Troponin I (0.000-0.034) ng/mL Total Protein (6.3-8.2) g/dL Albumin (3.5-5.0) g/dL Crossmatch Thrombosis Risk Factor Assmnt - Choose All That Apply Each Factor Represents 1 point: Medical pt on bed rest Other Risk Factors: No Thrombosis Risk Factor Assessment Total Risk Factor Score: 1 Thrombosis Risk Factor Assessment Level: Low Risk
[2019-06-25 16:45] LABS: Anisocytosis Slight; HGB 9.3 gm/dL (13.0-17.5); Hypochromasia Slight; MCH 26.8 pg (25.0-35.0); MCHC 33.3 g/dL (31.0-37.0); MCV 80.5 fL (80.0-100.0); Mean Platelet Volume 7.7; Microcytosis Slight; Platelet Count 196 k/uL (150-450); Poikilocytosis Slight; RBC 3.48 m/uL (4.30-5.90); RDW 18.2 % (11.5-15.5); WBC 15.1 k/uL (3.8-10.6)
[2019-06-25 16:47] LABS: Glucose,Whole Blood 120 mg/dL (75-99)
--- NOTE | 2019-06-25 20:17 | P.CONS ---
History of Present Illness - Reason for Consult Consult date: 06/25/19 - History of Present Illness 69-year-old male with medonary artery d BPH, chronic kidney disease stage III, hypertension, GERD, atrial flutter who presented to the hospital with complaints of melena. The patient lives with his brother presented to the hospital with complaints of approximate 3 days of black tarry stools. The patient reports he is had prior episodes of GI bleeding with similar presentations of melanotic stool but denies any bright red blood per rectum. No reports of abdominal pain, nausea or vomiting. The patient is on Imuran therapy at home. On presentation to the emergency department hemoglobin was found to be 4.4 and the patient was given 2 units of packed red blood cells with improvement of hemoglobin to 7.1, however repeat hemoglobin today was again decreased at 5.7 with 2 additional uni ts transfused in the patient's hemoglobin coming up to over 9. INR is 1.2 today. Review of Systems REVIEW OF SYSTEMS: CONSTITUTIONAL: Denies any fevers, chills, weight change or fatigue. CARDIOVASCULAR: Denies any chest pain, palpitations high or low blood pressures, but suffers from atrial flutter baseline RESPIRATORY: Denies any shortness of breath, hemoptysis or cough. GENITOURINARY: No dysuria or hematuria. MUSCULOSKELETAL: No weakness reported. SKIN: Denies any new rashes or lesions, jaundice or pallor. PSYCHIATRIC: Denies any depression or anxiety. NEUROLOGY: Denies headache, denies any new focal deficits. EARS/NOSE/THROAT: No recent hearing change, congestion, nasal discharge or sore throat. EYES: No pain in eyes, discharge or change in vision. GASTROINTESTINAL: As per HPI. Past Medical History Past Medical History: Atrial Fibrillation, GERD/Reflux, Hypertension Additional Past Medical History / Comment(s): irregular heart rhythm History of Any Multi-Drug Resistant Organisms: ESBL Year Discovered:: 09/28/16 MDRO Source:: BLOOD E.COLI Past Surgical History: Unable to Obtain Additional Past Surgical History / Comment(s): Previous Tracheostomy, Porcine Valve, PEG tube with removal Past Anesthesia/Blood Transfusion Reactions: No Reported Reaction Past Psychological History: Unable to Obtain Smoking Status: Former smoker Past Alcohol Use History: Unable to Obtain Past Drug Use History: Unable to Obtain - Past Family History Father History Unknown: Yes Family Medical History: Unable to Obtain Mother History Unknown: Yes Family Medical History: Unable to Obtain Medications and Allergies Home Medications Medication Instructions Recorded Confirmed Type Amiodarone [Cordarone] 200 mg PO DAILY 09/28/16 06/24/19 History Melatonin 10 mg PO HS 09/28/16 06/24/19 History Metoprolol Tartrate [Lopressor] 12.5 mg PO BID 09/28/16 06/24/19 History Ranitidine HCl 150 mg PO BID 09/28/16 06/24/19 History Tamsulosin HCl [Flomax] 0.4 mg PO DAILY 09/28/16 06/24/19 History HYDROcodone/APAP 7.5-325MG [[place] 1 tab PO Q6H PRN 01/25/17 06/24/19 History 7.5-325] LORazepam [Ativan] 1 mg PO Q8H PRN 01/25/17 06/24/19 History Magnesium Oxide [Mag-Ox] 400 mg PO BID 01/25/17 06/24/19 History Warfarin [Coumadin] 2 mg PO SUMOWETHFRSA 01/25/17 06/24/19 History Atorvastatin [Lipitor] 5 mg PO HS 06/24/19 06/24/19 History Sennosides [Senna] 17.2 mg PO HS 06/24/19 06/24/19 History Sertraline [Zoloft] 100 mg PO DAILY 06/24/19 06/24/19 History Ursodiol 300 mg PO BID 06/24/19 06/24/19 History risperiDONE 3 mg PO BID 06/24/19 06/24/19 History Allergies Allergy/AdvReac Type Severity Reaction Status Date / Time No Known Allergies Allergy Verified 06/24/19 16:40 Physical Exam Vitals: Vital Signs Temp Pulse Resp BP Pulse Ox 06/25/19 19:00 57 L 16 142/60 96 06/25/19 18:30 57 L 19 143/57 98 06/25/19 18:00 57 L 19 145/59 97 06/25/19 17:30 58 L 17 167/157 96 06/25/19 17:00 57 L 23 141/59 97 06/25/19 16:30 59 L 9 L 97/64 97 06/25/19 16:00 98.0 F 59 L 23 136/62 97 09/08/19 15:54 21 06/25/19 15:30 58 L 22 137/61 94 L 06/25/19 15:00 60 21 134/57 95 06/25/19 14:30 60 22 132/59 95 06/25/19 14:00 59 L 16 133/57 95 06/25/19 13:30 61 11 L 132/57 96 06/25/19 13:00 61 14 136/60 96 06/25/19 12:30 62 22 135/60 96 06/25/19 12:00 62 25 H 135/59 97 06/25/19 11:49 13 06/25/19 11:30 62 13 127/58 96 06/25/19 11:00 63 23 132/62 97 06/25/19 10:30 62 13 131/59 97 06/25/19 10:00 62 21 131/59 97 06/25/19 09:30 62 20 132/59 97 06/25/19 09:00 63 21 127/66 97 06/25/19 08:50 98.2 F 62 18 127/66 97 06/25/19 08:30 63 20 120/55 98 06/25/19 08:27 98.2 F 61 18 120/55 95 06/25/19 08:20 98.0 F 65 18 120/85 06/25/19 08:10 98.2 F 62 18 120/55 95 06/25/19 08:00 98.2 F 62 22 122/53 96 06/25/19 07:30 62 19 121/55 98 06/25/19 07:00 63 20 113/56 97 06/25/19 06:43 98.7 F 61 12 113/56 98 06/25/19 06:30 64 24 117/53 96 06/25/19 06:13 98.3 F 63 15 117/53 96 06/25/19 06:03 98.4 F 64 16 115/72 96 06/25/19 06:00 64 12 114/54 96 06/25/19 05:30 64 21 115/56 97 06/25/19 05:00 63 21 105/57 98 06/25/19 04:30 64 17 121/58 99 06/25/19 04:00 98.2 F 66 16 116/59 99 06/25/19 03:48 20 06/25/19 03:30 64 20 112/57 98 06/25/19 03:00 65 25 H 116/59 97 06/25/19 02:30 66 22 120/106 97 06/25/19 02:00 65 16 106/57 99 06/25/19 01:36 98.5 F 64 20 97/51 98 06/25/19 01:30 65 21 108/51 97 06/25/19 01:00 66 15 107/67 97 06/25/19 00:44 98.2 F 65 12 107/67 99 06/25/19 00:42 70 23 125/57 97 06/25/19 00:30 66 12 115/67 98 06/25/19 00:14 98.2 F 64 12 115/67 99 06/25/19 00:04 98.3 F 65 18 114/62 98 06/25/19 00:00 97.6 F 65 13 124/57 98 06/24/19 23:50 98.3 F 64 12 129/65 98 06/24/19 23:30 66 21 127/98 98 06/24/19 23:00 68 20 132/59 97 06/24/19 22:55 97.6 F 66 15 127/64 98 06/24/19 22:30 68 15 114/61 98 06/24/19 22:25 97.9 F 67 16 131/74 97 06/24/19 22:15 97.8 F 68 14 114/61 06/24/19 22:00 65 16 157/121 98 06/24/19 21:30 67 14 147/64 98 06/24/19 21:05 97.6 F 68 14 147/64 06/24/19 21:00 69 20 150/67 99 06/24/19 20:30 71 21 137/51 100 06/24/19 20:18 97.5 F L 71 17 149/70 97 06/24/19 20:00 98.0 F 70 17 132/59 99 Intake and Output 06/25/19 06/25/19 06/25/19 06:59 14:59 22:59 Intake Total 2526 1420 500 Output Total 660 550 350 Balance 1866 870 150 Intake: IV 900 600 500 0.9@100 900 600 500 Oral 200 Blood Product 1426 820 Ffp 24 Cpd Unit 288 [id number] Ffp 24 Cpd Unit 273 [id number] As-1 Unit 0 310 [id number] As-1 Unit 0 [id number] Output: Urine 660 550 350 Other: Voiding Method Indwelling Catheter Indwelling Catheter Indwelling Catheter Weight 82.1 kg 82.1 kg On physical examination, patient appears comfortable in no apparent distress. HEAD: Normocephalic, atraumatic. EYES: No scleral icterus. No conjunctival injection. MOUTH: No lesions, tongue midline. NECK: Trachea midline, no gross abnormalities. CHEST: Decreased air entry in all lung hall. HEART: S1-S2 appreciated, regularly irregular. ABDOMEN: Soft, obese. Bowel sounds are positive. No organomegaly. No guarding or rigidity. EXTREMITIES: No pedal edema. SKIN: No rashes, no jaundice. NEUROLOGIC: Alert and oriented. No focal deficits. Results CBC & Chem 7: 06/25/19 16:22 06/25/19 04:35 Labs: Abnormal Lab Results - Last 24 Hours (Table) 06/24/19 06/24/19 06/24/19 Range/Units 16:30 20:41 21:27 WBC 18.9 H (3.8-10.6) k/uL RBC 2.87 L (4.30-5.90) m/uL Hgb 7.1 L D (13.0-17.5) gm/dL Hct 23.0 L (39.0-53.0) % MCV (80.0-100.0) fL MCH 24.7 L (25.0-35.0) pg MCHC 30.9 L (31.0-37.0) g/dL RDW 19.3 H (11.5-15.5) % Neutrophils # (Manual) 16.60 H (1.3-7.7) k/uL Metamyelocytes # (Man) 0.76 H (0) k/uL Myelocytes # (Manual) 0.19 H (0) k/uL Nucleated RBCs 2 H (0-0) /100 WBC PT (9.0-12.0) sec INR (<1.2) Sodium (137-145) mmol/L BUN (9-20) mg/dL Creatinine (0.66-1.25) mg/dL Glucose (74-99) mg/dL POC Glucose (mg/dL) (75-99) mg/dL Plasma Lactic Acid Gurpreet 3.6 H* (0.7-2.0) mmol/L Crossmatch See Detail 06/24/19 06/25/19 06/25/19 Range/Units 22:40 01:58 04:35 WBC 14.7 H (3.8-10.6) k/uL RBC 2.29 L (4.30-5.90) m/uL Hgb 5.7 L* (13.0-17.5) gm/dL Hct 18.0 L* (39.0-53.0) % MCV 78.8 L (80.0-100.0) fL MCH 24.9 L (25.0-35.0) pg MCHC (31.0-37.0) g/dL RDW 19.5 H (11.5-15.5) % Neutrophils # (Manual) (1.3-7.7) k/uL Metamyelocytes # (Man) (0) k/uL Myelocytes # (Manual) (0) k/uL Nucleated RBCs (0-0) /100 WBC PT (9.0-12.0) sec INR (<1.2) Sodium (137-145) mmol/L BUN (9-20) mg/dL Creatinine (0.66-1.25) mg/dL Glucose (74-99) mg/dL POC Glucose (mg/dL) 148 H 155 H (75-99) mg/dL Plasma Lactic Acid Gurpreet (0.7-2.0) mmol/L Crossmatch 06/25/19 06/25/19 06/25/19 Range/Units 04:35 04:35 06:49 WBC (3.8-10.6) k/uL RBC (4.30-5.90) m/uL Hgb (13.0-17.5) gm/dL Hct (39.0-53.0) % MCV (80.0-100.0) fL MCH (25.0-35.0) pg MCHC (31.0-37.0) g/dL RDW (11.5-15.5) % Neutrophils # (Manual) (1.3-7.7) k/uL Metamyelocytes # (Man) (0) k/uL Myelocytes # (Manual) (0) k/uL Nucleated RBCs (0-0) /100 WBC PT 12.4 H (9.0-12.0) sec INR 1.2 H (<1.2) Sodium 135 L (137-145) mmol/L BUN 72 H (9-20) mg/dL Creatinine 1.78 H (0.66-1.25) mg/dL Glucose 109 H (74-99) mg/dL POC Glucose (mg/dL) 114 H (75-99) mg/dL Plasma Lactic Acid Gurpreet (0.7-2.0) mmol/L Crossmatch 06/25/19 06/25/19 06/25/19 Range/Units 11:32 11:53 16:22 WBC 15.0 H 15.1 H (3.8-10.6) k/uL RBC 3.47 L 3.48 L (4.30-5.90) m/uL Hgb 9.4 L D 9.3 L (13.0-17.5) gm/dL Hct 28.6 L 28.0 L (39.0-53.0) % MCV (80.0-100.0) fL MCH (25.0-35.0) pg MCHC (31.0-37.0) g/dL RDW 19.0 H 18.2 H (11.5-15.5) % Neutrophils # (Manual) (1.3-7.7) k/uL Metamyelocytes # (Man) (0) k/uL Myelocytes # (Manual) (0) k/uL Nucleated RBCs (0-0) /100 WBC PT (9.0-12.0) sec INR (<1.2) Sodium (137-145) mmol/L BUN (9-20) mg/dL Creatinine (0.66-1.25) mg/dL Glucose (74-99) mg/dL POC Glucose (mg/dL) 130 H (75-99) mg/dL Plasma Lactic Acid Gurpreet (0.7-2.0) mmol/L Crossmatch 06/25/19 Range/Units 16:44 WBC (3.8-10.6) k/uL RBC (4.30-5.90) m/uL Hgb (13.0-17.5) gm/dL Hct (39.0-53.0) % MCV (80.0-100.0) fL MCH (25.0-35.0) pg MCHC (31.0-37.0) g/dL RDW (11.5-15.5) % Neutrophils # (Manual) (1.3-7.7) k/uL Metamyelocytes # (Man) (0) k/uL Myelocytes # (Manual) (0) k/uL Nucleated RBCs (0-0) /100 WBC PT (9.0-12.0) sec INR (<1.2) Sodium (137-145) mmol/L BUN (9-20) mg/dL Creatinine (0.66-1.25) mg/dL Glucose (74-99) mg/dL POC Glucose (mg/dL) 120 H (75-99) mg/dL Plasma Lactic Acid Gurpreet (0.7-2.0) mmol/L Crossmatch Chest x-ray: report reviewed (Left basilar and right mid lung opacities suspicious for new pneumonia on chest x-ray) Assessment and Plan (1) Acute anemia Narrative/Plan: 69-year-old male with multiple medical comorbidities including a prior history of upper GI bleed per his history who presented to the hospital with complaints of 3 days of melanotic stool. Patient found to be severely anemic on presentation with a hemoglobin of 4 subsequently improved to 7 on repeat blood draw after transfusion of packed red blood cells and currently above 9 after receiving 2 additional units of PRBCs. The patient denies any nausea or vomiting, hematemesis or coffee-ground emesis, or abdominal pain at this time. Denies any bright red blood per rectum. Differential includes peptic ulcer di sease, severe gastritis/esophagitis, Stacey-Carter tear, AVM or other etiology. Current Visit: Yes Status: Acute Code(s): D64.9 - ANEMIA, UNSPECIFIED SNOMED Code(s): 837944872 (2) Melena Current Visit: Yes Status: Acute Code(s): K92.1 - MELENA SNOMED Code(s): 0173009 (3) Upper gastrointestinal hemorrhage Current Visit: Yes Status: Acute Code(s): K92.2 - GASTROINTESTINAL HEMORRHAGE, UNSPECIFIED SNOMED Code(s): 21584291 Plan: Supportive care Continue to monitor hemoglobin and hematocrit every 6 hours and transfuse as needed Will increase Protonix from 40 mg IV daily to 40 mg IV twice a day nothng by mouth NPO and okay for some ice chips with sips of water for medications tonight, and nothing by mouth after midnight Avoid NSAID use Continue to hold warfarin therapy Case discussed with the merchandising internship service, appreciate the recommendations We'll plan for EGD tomorrow for further evaluation Thank you for allowing us to participate in the care of the patient we will continue to follow
[2019-06-25 21:31] LABS: Glucose,Whole Blood 104 mg/dL (75-99)
[2019-06-25] MEDS: URSODIOL 300 MG CAP PO SCH (21:45)
[2019-06-25] MEDS: MELATONIN 5 MG TABLET PO SCH (21:45)
[2019-06-25] MEDS: PANTOPRAZOLE 40 MG/10 ML VIAL IVP SCH (21:46)
[2019-06-25] MEDS: ATORVASTATIN 10 MG TAB PO SCH (21:47)
[2019-06-25 23:31] LABS: Anisocytosis Slight; HCT 27.8 % (39.0-53.0); HGB 9.3 gm/dL (13.0-17.5); Hypochromasia Slight; MCH 27.2 pg (25.0-35.0); MCHC 33.3 g/dL (31.0-37.0); MCV 81.5 fL (80.0-100.0); Microcytosis Slight; Platelet Count 187 k/uL (150-450); Poikilocytosis Moderate; RBC 3.41 m/uL (4.30-5.90); RDW 18.3 % (11.5-15.5); WBC 12.8 k/uL (3.8-10.6)
[2019-06-26] MEDS: SODIUM CHLORIDE 0.9% 1,000 ML IV SCH ×3 (00:40→20:14)
[2019-06-26 05:37] LABS: Anisocytosis Slight; HCT 25.8 % (39.0-53.0); HGB 8.3 gm/dL (13.0-17.5); Hypochromasia Slight; MCH 26.4 pg (25.0-35.0); MCHC 32.1 g/dL (31.0-37.0); MCV 82.3 fL (80.0-100.0); Mean Platelet Volume 7.9; Platelet Count 181 k/uL (150-450); Poikilocytosis Moderate; RBC 3.14 m/uL (4.30-5.90); RDW 18.4 % (11.5-15.5); WBC 9.9 k/uL (3.8-10.6)
[2019-06-26 05:41] LABS: INR 1.1 (<1.2); Prothrombin Time 11.2 sec (9.0-12.0)
[2019-06-26 05:59] LABS: Calcium 7.8 mg/dL (8.4-10.2); Potassium 3.9 mmol/L (3.5-5.1)
[2019-06-26 07:15] LABS: Glucose,Whole Blood 107 mg/dL (75-99)
[2019-06-26] MEDS: PANTOPRAZOLE 40 MG/10 ML VIAL IVP SCH (09:08)
[2019-06-26] MEDS: AMIODARONE 200 MG TAB PO SCH (09:08)
[2019-06-26] MEDS: METOPROLOL TARTRATE 12.5 MG TAB PO SCH ×2 (09:08→20:12)
[2019-06-26] MEDS: risperiDONE 1 MG TAB PO SCH ×2 (09:13→20:13)
[2019-06-26] MEDS: MAGNESIUM OXIDE 400 MG TAB PO SCH ×2 (09:13→20:12)
[2019-06-26] MEDS: URSODIOL 300 MG CAP PO SCH ×2 (09:14→20:14)
[2019-06-26] MEDS: SERTRALINE 100 MG TAB PO SCH (09:14)
[2019-06-26] MEDS: TAMSULOSIN 0.4 MG CAP.ER.24H PO SCH (09:14)
[2019-06-26] MEDS: PIPERACILLIN-TAZOBACTAM 3.375 GM in SODIUM CHLORIDE 0.9% 100 ML IVPB SCH ×2 (09:15→17:08)
[2019-06-26 12:06] LABS: Glucose,Whole Blood 107 mg/dL (75-99)
--- NOTE | 2019-06-26 12:43 | P.PN ---
Subjective Progress Note Date: 06/26/19 Principal diagnosis: Acute GI bleeding and Coumadin coagulopathy. A 69-year-old male patient known history of cardiac disease, known history of coronary artery disease with previous bypass surgery and previous aortic valve replacement with a bioprosthetic aortic valve, known history of chronic atrial fibrillation maintained on anticoagulation with warfarin. The patient came in with melanotic stool and in the emergency department the patient apparently was having several bouts prior to him coming to the hospital and another bout was noted in the ED. No reported nausea. No vomiting. No abdominal pain. He was taken his anticoagulation. His INR was 2.5 at the time of admission. The patient was given vitamin K, fresh frozen plasma and case sent for. This was given to him in the emergency. Initial lactic acid level was at 7.6 and was so distressed station lactic acid level came down to 1.1 after receiving a total of 3 L of IV fluids. The hemoglobin initially was at 4.4. After receiving 2 units the hemoglobin came up to 7.1. Subsequently dropped down to 5.7 this morning and the patient will be receiving another 2 units of packed RBCs. He is on IV Protonix. GI is on consult. At the time of my evaluation this morning, the patient was hemodynamic is stable. His blood pressure was stable without any pressors. No significant tachycardia. Denies having any specific complaints. 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 I do see a scar over his anterior neck from a previous check estimate tube insertion probably related to prolonged mechanical ventilation. His previous history of scoping whether his upper or lower scoping is not known. Not known to have any form of chronic liver disease. Doesn't take any form of nonsteroidal anti-inflammatory medication. No reported alcoholism history. No previous bouts of GI bleed based on our records. The patient denies having any chest pain. He does have a troponin leak. These EKG showing a normal sinus rhythm with intraventricular conduction delay/block and some ST segment depression in the anterolateral leads suggestive of subendocardial ischemia. Patient was reevaluated today on 05/26/2019, remains in the intensive care unit, received a total of 3 units of packed RBCs, and 2 units of fresh frozen plasma, and hemoglobin presently is 8.3. Patient is feeling better, denies any specific complaints. Scheduled to undergo EGD today. CBC was reviewed electrolytes are normal renal profile showed a BUN of 45 creatinine of 1.37, improved compared to creatinine of 1.77 on admission. Chest x-ray showed a left basilar and right midlung infiltrate, hence the patient was empirically started on antibiotics in the form of Zosyn. Patient has minimal cough, no fever, no chills, no hemoptysis. INR today is 1.1. Troponin is a bit elevated at 0.058. Objective - Vital Signs Vital signs: Vital Signs Temp 99.0 F 06/26/19 08:00 Pulse 59 L 06/26/19 11:00 Resp 16 06/26/19 11:00 BP 134/59 06/26/19 11:00 Pulse Ox 98 06/26/19 11:00 Intake & Output 06/25/19 06/26/19 06/26/19 18:59 06:59 18:59 Intake Total 1920 1100 550 Output Total 900 1125 610 Balance 1020 -25 -60 Weight 82.1 kg 85.3 kg Intake: IV 1100 1100 500 0.9@100 1100 1100 500 Intake, IV Titration 50 Amount Piperacillin-Tazobactam 3 50 .375 gm In Sodium Chloride 0.9% 100 ml @ 25 mls/hr IVPB Q8HR [facility] Rx# :[id number] Blood Product 820 Rc As-1 Unit 310 [id number] Rc As-1 Unit 0 [id number] Output: Urine 900 1125 610 Other: Voiding Method Indwelling Catheter Indwelling Catheter Indwelling Catheter - Exam Physical Exam: Revealed a 69-year-old white male in no distress. Head: Atraumatic, normocephalic. HEENT:[Neck is supple.] [No neck masses.] [No thyromegaly.] [No JVD.] Scar from previous tracheostomy over the anterior neck is noted. Chest: Minimal fine crackles at the bases no rhonchi and no wheezes..] Cardiac Exam: [Normal S1 and S2, no S3 gallop, no murmur.] Abdomen: [Soft, nontender, no megaly, no rebound, no guarding, normal bowel sounds.] Extremities: [No clubbing, no edema, no cyanosis.] Neurological Exam: [No focal neurologic deficit.] Alert oriented 3. Skin: No rashes. Psychiatric: Normal mood affect and normal mental status examination. Lymphatics: No lymphadenopathy. - Labs CBC & Chem 7: 06/26/19 05:03 06/26/19 05:03 Labs: Abnormal Lab Results - Last 24 Hours (Table) 06/25/19 06/25/19 06/25/19 Range/Units 11:53 16:22 16:44 WBC 15.0 H 15.1 H (3.8-10.6) k/uL RBC 3.47 L 3.48 L (4.30-5.90) m/uL Hgb 9.4 L D 9.3 L (13.0-17.5) gm/dL Hct 28.6 L 28.0 L (39.0-53.0) % RDW 19.0 H 18.2 H (11.5-15.5) % Chloride (98-107) mmol/L Carbon Dioxide (22-30) mmol/L BUN (9-20) mg/dL Creatinine (0.66-1.25) mg/dL POC Glucose (mg/dL) 120 H (75-99) mg/dL Calcium (8.4-10.2) mg/dL Troponin I (0.000-0.034) ng/mL 06/25/19 06/25/19 06/26/19 Range/Units 21:29 23:15 05:03 WBC 12.8 H (3.8-10.6) k/uL RBC 3.41 L (4.30-5.90) m/uL Hgb 9.3 L (13.0-17.5) gm/dL Hct 27.8 L (39.0-53.0) % RDW 18.3 H (11.5-15.5) % Chloride (98-107) mmol/L Carbon Dioxide (22-30) mmol/L BUN (9-20) mg/dL Creatinine (0.66-1.25) mg/dL POC Glucose (mg/dL) 104 H (75-99) mg/dL Calcium (8.4-10.2) mg/dL Troponin I 0.058 H* (0.000-0.034) ng/mL 06/26/19 06/26/19 06/26/19 Range/Units 05:03 05:03 06:48 WBC (3.8-10.6) k/uL RBC 3.14 L (4.30-5.90) m/uL Hgb 8.3 L (13.0-17.5) gm/dL Hct 25.8 L (39.0-53.0) % RDW 18.4 H (11.5-15.5) % Chloride 112 H (98-107) mmol/L Carbon Dioxide 20 L (22-30) mmol/L BUN 45 H (9-20) mg/dL Creatinine 1.37 H (0.66-1.25) mg/dL POC Glucose (mg/dL) 107 H (75-99) mg/dL Calcium 7.8 L (8.4-10.2) mg/dL Troponin I (0.000-0.034) ng/mL 06/26/19 Range/Units 11:52 WBC (3.8-10.6) k/uL RBC (4.30-5.90) m/uL Hgb (13.0-17.5) gm/dL Hct (39.0-53.0) % RDW (11.5-15.5) % Chloride (98-107) mmol/L Carbon Dioxide (22-30) mmol/L BUN (9-20) mg/dL Creatinine (0.66-1.25) mg/dL POC Glucose (mg/dL) 107 H (75-99) mg/dL Calcium (8.4-10.2) mg/dL Troponin I (0.000-0.034) ng/mL Assessment and Plan Assessment: Impression: Acute GI bleeding most likely upper GI in nature, EGD is pending. Patient is status post multiple units of blood transfusions, and he was given fresh frozen plasma on admission. Total units he received with 3 units of packed RBCs, and 2 units of fresh frozen plasma. Present hemoglobin is 8.3. Abnormal troponin, could be related to his profound anemia on presentation. 3 acute lactic acidosis, resolved, most likely secondary to hypoperfusion seco ndary to profound anemia. 4 history of coronary artery disease and history of aortic valve replacement 5 history of chronic atrial fibrillation presently patient is in sinus rhythm 6 benign essential hypertension 7 hyperlipidemia 8 history of E. coli urinary tract infection secondary to ESBL organism 9 nonspecific abnormalities noted on the chest x-ray, hence we'll recommend empiric antibiotics, possibility of pneumonia is not entirely ruled out, could be aspiration pneumonia in nature, we will proceed with Zosyn, and will order pro-calcitonin level. 10 history of sepsis requiring prolonged mechanical ventilation and intubation in the past previous tracheostomy. Recommendation: Continue IV fluids, continue to monitor hemoglobin and transfuse for hemoglobin below 7 continue IV Protonix, proceed with EGD as scheduled by gastroenterology. Cardiology to see regarding his abnormal troponin. Continue to hold Coumadin. Consider transferring the patient out of the ICU if EGD findings are not significant. We'll continue to follow. Time with Patient: Less than 30
[2019-06-26] MEDS ORDERED: PROPOFOL 10 MG/ML 20 ML VIAL IV ONE ×2 (15:32)
--- NOTE | 2019-06-26 15:56 | P.PCN ---
Date of Procedure: 06/26/19 Description of Procedure: BRIEF HISTORY: 69-year-old male with medonary artery d BPH, chronic kidney disease stage III, hypertension, GERD, atrial flutter who presented to the hospital with complaints of melena. The patient lives with his brother presented to the hospital with complaints of approximate 3 days of black tarry stools. The patient reports he is had prior episodes of GI bleeding with similar presentations of melanotic stool but denies any bright red blood per rectum. No reports of abdominal pain, nausea or vomiting. The patient is on Imuran therapy at home. On presentation to the emergency department hemoglobin was found to be 4.4 and the patient was given 2 units of packed red blood cells with improvement of hemoglobin to 7.1, however repeat hemoglobin today was again decreased at 5.7 with 2 additional units transfused in the patient's hemoglobin coming up to over 9. INR is 1.2 yesterday. PROCEDURE PERFORMED: Esophagogastroduodenoscopy with biopsy. PREOPERATIVE DIAGNOSIS: Melena, anemia of acute blood loss. ESTIMATED BLOOD LOSS: Minimal. IV sedation per anesthesia. PROCEDURE: After informed consent was obtained, the patient was brought into the endoscopy unit. IV sedation was administered by Anesthesia under continuous monitoring. Initially the Olympus GIF-190 video endoscope was inserted into the mouth. Esophagus intubated without any difficulty. It was gradually advanced into the stomach and duodenum and carefully examined. The bulb and the second part of the duodenum appeared normal, with biopsy. The scope at this time was withdrawn to the stomach, adequately insufflated with air, and upon careful examination, mucosa of the antrum, body, cardia and the fundus appeared normal, except for some mild scattered erythema and body suggestive of mild gastritis. The scope was then withdrawn into the esophagus. The GE junction was located at 39 cm from the incisors. The esophagus appeared normal. There were no erosions or ulcerations seen and the patient tolerated the procedure well. IMPRESSION: 1. No active bleeding, old blood or source of GI bleeding found. 2. Gastritis antrum and body, biopsied. 3. Duodenal biopsy. RECOMMENDATIONS: The findings of this examination were discussed with the patient. Okay for clear liquid diet. Continue to monitor hemoglobin and hematocrit and transfuse as needed. Okay for Protonix by mouth daily. We'll plan on colonoscopy with possible video capsule endoscopy for further investigation of GI bleed tomorrow.
[2019-06-26] MEDS ORDERED: PEG 3350-NA SULF,BICARB,CL/KCL 4,000 ML BOTTLE PO ONE (15:59)
[2019-06-26] MEDS ORDERED: BISACODYL 5 MG TABLET.DR PO STA (15:59)
--- NOTE | 2019-06-26 17:32 | P.PN ---
Progress Note - Text Progress Note Date: 06/26/19 Chief Complaint: Dark stools Interval history: This is a 69-year-old patient of visiting physician Dr. Kelly. Chronic stable medical conditions include coronary artery disease with AK in 2017, persistent atrial flutter, BPH, chronic kidney disease stage III, hypertension, GERD, bilateral foot drop with contracture. Patient lives with his brother. Uses a wheelchair to get about. Patient's had 2 or 3 days of black stools at home. Was discovered to have a hemoglobin of 4.4 in the ER. 2 units of blood were given. Admitted to the ICU. Patient now the best of historians. Questionable abdominal pain. Does feel weak and tired. Admitted for the same. GI was consulted. Today-laying in bed. Comfortable. Endoscopy was pending. Feels a bit tired. Review of systems: Was done for constitutional, cardiovascular, GI, pulmonary. relevant finding as above Active Medications Hydrocodone Bitart/Acetaminophen ([place] 7.5-325) 1 each PO Q6H PRN PRN Reason: Pain Amiodarone HCl (Cordarone) 200 mg PO DAILY [facility] Last Admin: 06/26/19 09:08 Dose: 200 mg Documented by: Atorvastatin Calcium (Lipitor) 5 mg PO [facility] Last Admin: 06/25/19 21:47 Dose: 5 mg Documented by: Sodium Chloride (Saline 0.9%) 1,000 mls @ 100 mls/hr IV .Q10H [facility] Last Admin: 06/26/19 17:07 Dose: 100 mls/hr Documented by: Piperacillin Sod/Tazobactam (Sod 3.375 gm/ Sodium Chloride) 100 mls @ 25 mls/hr IVPB Q8HR [facility] Last Admin: 06/26/19 17:08 Dose: 25 mls/hr Documented by: Lorazepam (Ativan) 1 mg PO Q8H PRN PRN Reason: Anxiety Magnesium Oxide (Mag-Ox) 400 mg PO BID [facility] Last Admin: 06/26/19 09:13 Dose: Not Given Documented by: Melatonin (Melatonin) 10 mg PO [facility] Last Admin: 06/25/19 21:45 Dose: 10 mg Documented by: Metoprolol Tartrate (Lopressor) 12.5 mg PO BID [facility] Last Admin: 06/26/19 09:08 Dose: 12.5 mg Documented by: Naloxone HCl (Narcan) 0.2 mg IV Q2M PRN PRN Reason: Opioid Reversal Ondansetron HCl (Zofran) 4 mg IVP Q8HR PRN PRN Reason: Nausea And Vomiting Pantoprazole Sodium (Protonix) 40 mg PO AC-BRKFST [facility] Risperidone (Risperdal) 3 mg PO BID [facility] Last Admin: 06/26/19 09:13 Dose: Not Given Documented by: Sertraline HCl (Zoloft) 100 mg PO DAILY [facility] Last Admin: 06/26/19 09:14 Dose: Not Given Documented by: Tamsulosin HCl (Flomax) 0.4 mg PO DAILY [facility] Last Admin: 06/26/19 09:14 Dose: Not Given Documented by: Ursodiol (Actigall) 300 mg PO BID [facility] Last Admin: 06/26/19 09:14 Dose: Not Given Documented by: Physical examination: VITAL SIGNS: [99, 56, 18, 121/55, 93% room air] GENERAL: [Propped up in bed, comfortable]. EYES: [Pupils equal. Conjunctiva pale. HEENT: [External appearance of nose and ears normal, oral cavity grossly normal]. NECK: [JVD not raised; masses not palpable]. HEART: [First and second heart sounds are normal; no edema]. LUNGS:[ Respiratory rate normal; decreased breath sounds]. ABDOMEN: [Soft, nontender, liver spleen not palpable, no masses palpable]. PSYCH: [Able to answer simple questions]l. EXTREMITIES: Bilateral foot drop with evidence of chronic ischemia in both the feet INVESTIGATIONS, reviewed in the clinical context: Hemoglobin 8.3 BUN 45 creatinine 1.37 Admitting testing: White count 19.4 hemoglobin 4.4 platelets 254 INR 2.5 potassium 4.6 BUN 82 creatinine 1.77] Albumin 2.4 EKG-ST segment depression in anterolateral leads Chest x-ray film personally reviewed by me-lungs are clear Assessment: -Acute severe GI bleed in a patient presented dark stools, likely upper GI bleed -Acute severe blood loss anemia from GI bleed hemoglobin 4.4, symptomatic. Received 3 units of packed RBCs -Coronary artery disease with prior AK in 2017 and of bypass -BPH -Chronic kidney disease stage III from nephrosclerosis -Essential hypertension -GERD -Bilateral foot drop with contractures, chronic -Chronic intellectual delay Plan: Patient has a troponin positive likely due to hemodynamic mismatch. No clinical evidence of acute coronary syndrome. Later today patient had EGD done that showed some gastritis. GI is planning for a colonoscopy and a possible video capsule Endoscopy tomorrow.
[2019-06-26] MEDS: MELATONIN 5 MG TABLET PO SCH (20:13)
[2019-06-26] MEDS: ATORVASTATIN 10 MG TAB PO SCH (20:13)
[2019-06-27] MEDS: PIPERACILLIN-TAZOBACTAM 3.375 GM in SODIUM CHLORIDE 0.9% 100 ML IVPB SCH ×2 (00:24→08:09)
[2019-06-27 04:44] LABS: Anisocytosis Slight; Basophils % (A) 0 %; Eosinophils # (A) 0.1 k/uL (0-0.7); Eosinophils % (A) 1 %; HCT 28.4 % (39.0-53.0); HGB 8.9 gm/dL (13.0-17.5); Hypochromasia Moderate; Lymphocytes # (A) 0.5 k/uL (1.0-4.8); Lymphocytes % (A) 6 %; MCH 25.9 pg (25.0-35.0); MCHC 31.5 g/dL (31.0-37.0); MCV 82.2 fL (80.0-100.0); Mean Platelet Volume 7.8; Microcytosis Slight; Monocytes # (A) 0.6 k/uL (0-1.0); Monocytes % (A) 7 %; Neutrophils # (A) 6.9 k/uL (1.3-7.7); Neutrophils % (A) 84 %; Platelet Count 205 k/uL (150-450); Poikilocytosis Moderate; RBC 3.46 m/uL (4.30-5.90); WBC 8.2 k/uL (3.8-10.6)
[2019-06-27 04:57] LABS: Potassium 3.9 mmol/L (3.5-5.1)
[2019-06-27] MEDS: SODIUM CHLORIDE 0.9% 1,000 ML IV SCH (06:33)
[2019-06-27] MEDS ORDERED: PANTOPRAZOLE 40 MG TABLET PO SCH (07:30)
[2019-06-27] MEDS: AMIODARONE 200 MG TAB PO SCH (08:11)
[2019-06-27] MEDS: SERTRALINE 100 MG TAB PO SCH (08:11)
[2019-06-27] MEDS: TAMSULOSIN 0.4 MG CAP.ER.24H PO SCH (08:11)
[2019-06-27] MEDS: risperiDONE 1 MG TAB PO SCH (08:11)
[2019-06-27] MEDS: METOPROLOL TARTRATE 12.5 MG TAB PO SCH (08:11)
[2019-06-27] MEDS: MAGNESIUM OXIDE 400 MG TAB PO SCH (08:11)
[2019-06-27] MEDS: URSODIOL 300 MG CAP PO SCH (08:13)
--- NOTE | 2019-06-27 08:31 | XR ---
EXAMINATION TYPE: XR chest 1V portable DATE OF EXAM: 06/27/2019 COMPARISON: 06/25/2019 HISTORY: Shortness of breath TECHNIQUE: Single frontal view of the chest is obtained. FINDINGS: Increasing confluence of the right upper lung opacity, previously described as a right mid lung opacity and persistence of a left basilar opacity with overlying leads. New mild interstitial ed doreen, exaggerated on the right given patient rotation. Cardiomediastinal silhouette is stable with pos toperative changes. No acute osseous process. IMPRESSION: Increasing confluence of the right upper lung opacity and stable left basilar opacities most compatible with multifocal pneumonia radiographically. New mild interstitial pulmonary edema.
[2019-06-27 10:46] VITALS: BP 161/73; PULSE 64; RESP 21
[2019-06-27] MEDS ORDERED: PROPOFOL 10 MG/ML 20 ML VIAL IV ONE (11:15)
[2019-06-27] MEDS ORDERED: IV FLUID CONTINUATION 1,000 ML IV ONE ×2 (11:20)
--- NOTE | 2019-06-27 12:03 | P.PCN ---
Date of Procedure: 06/27/19 Description of Procedure: BRIEF HISTORY: 69-year-old male with medonary artery d BPH, chronic kidney disease stage III, hypertension, GERD, atrial flutter who presented to the hospital with complaints of melena. The patient lives with his brother presented to the hospital with complaints of approximate 3 days of black tarry stools. The patient reports he is had prior episodes of GI bleeding with similar presentations of melanotic stool but denies any bright red blood per rectum. No reports of abdominal pain, nausea or vomiting. The patient is on Imuran therapy at home. On presentation to the emergency department hemoglobin was found to be 4.4 and the patient was given 2 units of packed red blood cells with improvement of hemoglobin to 7.1, however repeat hemoglobin today was again decreased at 5.7 with 2 additional units transfused in the patient's hemoglobin coming up to over 9. INR is 1.2 yesterday. PROCEDURE PERFORMED: Colonoscopy with polypectomy. PREOPERATIVE DIAGNOSIS: Anemia of acute blood loss, melena. ESTIMATED BLOOD LOSS: Minimal. IV sedation per Anesthesia. PROCEDURE: After informed consent was obtained, the patient, was brought into the endoscopy unit. IV sedation was administered by Anesthesia under continuous monitoring. Digital rectal examination was normal. Initially the Olympus CF-190 flexible video colonoscope was then inserted in the rectum, gradually advanced into the cecum without any difficulty. Careful examination was performed as the scope was gradually being withdrawn. Ileocecal valve and the appendiceal orifice were visualized and appeared normal. Prep was good. Mucosa of the cecum, ascending colon, transverse colon, descending colon, sigmoid colon, and rectum appeared normal. There were numerous small and large diverticula in the sigmoid and left colon suggestive of moderate to severe diverticulosis. Some dark formed stool in the rectal vault, otherwise prep was good. 2 diminutive 2 mm polyps removed from the ascending colon and transverse colon with cold forcep polypectomy. Retroflexion was performed in the rectum and no lesions were seen, mild internal hemorrhoids. The patient tolerated the procedure well. IMPRESSION: Small polyps removed with cold forceps from the ascending colon and transverse colon. Moderate to severe left-sided diverticulosis. Mild internal hemorrhoids. RECOMMENDATIONS: Findings of this examination were discussed with the patient in the ICU team. Okay to resume diet. Okay to resume anticoagulation. If further fall in hemoglobin or symptoms develop would recommend video capsule endoscopy for further evaluation.
--- NOTE | 2019-06-27 12:57 | P.PN ---
Subjective Progress Note Date: 06/27/19 Principal diagnosis: Acute GI bleeding and Coumadin coagulopathy. A 69-year-old male patient known history of cardiac disease, known history of coronary artery disease with previous bypass surgery and previous aortic valve replacement with a bioprosthetic aortic valve, known history of chronic atrial fibrillation maintained on anticoagulation with warfarin. The patient came in with melanotic stool and in the emergency department the patient apparently was having several bouts prior to him coming to the hospital and another bout was noted in the ED. No reported nausea. No vomiting. No abdominal pain. He was taken his anticoagulation. His INR was 2.5 at the time of admission. The patient was given vitamin K, fresh frozen plasma and case sent for. This was given to him in the emergency. Initial lactic acid level was at 7.6 and was so distressed station lactic acid level came down to 1.1 after receiving a total of 3 L of IV fluids. The hemoglobin initially was at 4.4. After receiving 2 units the hemoglobin came up to 7.1. Subsequently dropped down to 5.7 this morning and the patient will be receiving another 2 units of packed RBCs. He is on IV Protonix. GI is on consult. At the time of my evaluation this morning, the patient was hemodynamic is stable. His blood pressure was stable without any pressors. No significant tachycardia. Denies having any specific complaints. 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 I do see a scar over his anterior neck from a previous check estimate tube insertion probably related to prolonged mechanical ventilation. His previous history of scoping whether his upper or lower scoping is not known. Not known to have any form of chronic liver disease. Doesn't take any form of nonsteroidal anti-inflammatory medication. No reported alcoholism history. No previous bouts of GI bleed based on our records. The patient denies having any chest pain. He does have a troponin leak. These EKG showing a normal sinus rhythm with intraventricular conduction delay/block and some ST segment depression in the anterolateral leads suggestive of subendocardial ischemia. Patient was reevaluated today on 06/26/2019, remains in the intensive care unit, received a total of 3 units of packed RBCs, and 2 units of fresh frozen plasma, and hemoglobin presently is 8.3. Patient is feeling better, denies any specific complaints. Scheduled to undergo EGD today. CBC was reviewed electrolytes are normal renal profile showed a BUN of 45 creatinine of 1.37, improved compared to creatinine of 1.77 on admission. Chest x-ray showed a left basilar and right midlung infiltrate, hence the patient was empirically started on antibiotics in the form of Zosyn. Patient has minimal cough, no fever, no chills, no hemoptysis. INR today is 1.1. Troponin is a bit elevated at 0.058. Reevaluated today on 06/27/2019, patient remains in the ICU, hemodynamically stable, no significant drop in his hemoglobin over the last 24 hours, underwent EGD yesterday and it was nondiagnostic. Underwent colonoscopy today and he was found to have small polyps no active bleeding, although he was found to have moderate to severe left sided diverticulosis and mild internal hemorrhoids. Hence it was advised by gastroenterology to resume anticoagulation and if hemoglobin drops again he will require video capsule endoscopy for further evaluation. Hemoglobin today is 8.9, electrolytes are normal renal profile is improving creatinine is down to 1.28. Patient received a total of 4 units of packed RBCs since admission, and 2 units of fresh frozen plasma. Objective - Vital Signs Vital signs: Vital Signs Temp 99.2 F 06/27/19 08:00 Pulse 64 06/27/19 10:00 Resp 21 06/27/19 10:00 BP 161/73 06/27/19 10:00 Pulse Ox 96 06/27/19 10:00 Intake & Output 06/26/19 06/27/19 06/27/19 18:59 06:59 18:59 Intake Total 1350 2780 675 Output Total 1410 890 440 Balance -60 1890 235 Weight 84.7 kg Intake: IV 1200 1300 600 0.9@100 1200 1300 300 Intake, IV Titration 150 150 75 Amount Piperacillin-Tazobactam 3 150 150 75 .375 gm In Sodium Chloride 0.9% 100 ml @ 25 mls/hr IVPB Q8HR [facility] Rx# :[id number] Oral 1330 Output: Urine 1410 890 440 Other: Voiding Method Indwelling Catheter Indwelling Catheter Indwelling Catheter # Bowel Movements 1 - Exam Physical Exam: Revealed a 69-year-old white male in no distress. Head: Atraumatic, normocephalic. HEENT:[Neck is supple.] [No neck masses.] [No thyromegaly.] [No JVD.] Scar from previous tracheostomy over the anterior neck is noted. Chest: diminished breath sounds at the bases, no rhonchi and no wheezes.] Cardiac Exam: [Normal S1 and S2, no S3 gallop, no murmur.] Abdomen: [Soft, nontender, no megaly, no rebound, no guarding, normal bowel sounds.] Extremities: [No clubbing, no edema, no cyanosis.] Neurological Exam: [No focal neurologic deficit.] Alert oriented 3. Skin: No rashes. Psychiatric: Normal mood affect and normal mental status examination. Lymphatics: No lymphadenopathy. - Labs CBC & Chem 7: 06/27/19 03:49 06/27/19 03:49 Labs: Abnormal Lab Results - Last 24 Hours (Table) 06/24/19 06/26/19 06/27/19 Range/Units 16:30 05:03 03:49 RBC 3.46 L (4.30-5.90) m/uL Hgb 8.9 L (13.0-17.5) gm/dL Hct 28.4 L (39.0-53.0) % RDW 18.0 H (11.5-15.5) % Lymphocytes # 0.5 L (1.0-4.8) k/uL Chloride (98-107) mmol/L BUN (9-20) mg/dL Creatinine (0.66-1.25) mg/dL Calcium (8.4-10.2) mg/dL Procalcitonin 0.70 H (0.02-0.09) ng/mL Crossmatch See Detail 06/27/19 Range/Units 03:49 RBC (4.30-5.90) m/uL Hgb (13.0-17.5) gm/dL Hct (39.0-53.0) % RDW (11.5-15.5) % Lymphocytes # (1.0-4.8) k/uL Chloride 112 H (98-107) mmol/L BUN 31 H (9-20) mg/dL Creatinine 1.28 H (0.66-1.25) mg/dL Calcium 8.0 L (8.4-10.2) mg/dL Procalcitonin (0.02-0.09) ng/mL Crossmatch Assessment and Plan Assessment: Impression: Acute GI bleeding, status post EGD and colonoscopy both were basically nondiagnostic, and no evidence of active bleeding noted. His colonoscopy showed severe diverticulosis and internal hemorrhoids as well as polyps but no active bleeding noted. Abnormal troponin, could be related to his profound anemia on presentation. 3 acute lactic acidosis, resolved, most likely secondary to hypoperfusion secondary to profound anemia. 4 history of coronary artery disease and history of aortic valve replacement 5 history of chronic atrial fibrillation presently patient is in sinus rhythm 6 benign essential hypertension 7 hyperlipidemia 8 history of E. coli urinary tract infection secondary to ESBL organism 9 nonspecific abnormalities noted on the chest x-ray, hence we'll recommend empiric antibiotics, possibility of pneumonia is not entirely ruled out, could be aspiration pneumonia in nature, we will proceed with Zosyn, Protonix and tone in is 0.7.. 10 history of sepsis requiring prolonged mechanical ventilation and intubation in the past previous tracheostomy. Recommendation: Continue IV fluids, continue to monitor hemoglobin, advanced diet as tolerated, resume anticoagulation therapy for his history of underlying chronic atrial fibrillation. We will likely transfer out of the ICU today to a regular medical floor, and we will continue to follow closely. Patient was cleared by gastroenterology to resume anticoagulation. And if he bleeds again, patient will require capsule endoscopy. Time with Patient: Less than 30
--- NOTE | 2019-06-27 13:56 | CDI ---
Documentation Clarification Form Date: 06/27/2019 1:09:53 PM From: Mary Juares RN, CCDS Admit Date: 06/24/2019 6:05:00 PM Patient Name: Samuel Villafana Visit Number: [id number] Discharge Date: ATTENTION: The Clinical Documentation Specialists (CDI) and [facility] Coding Staff appreciate your assistance in clarifying documentation. Please respond to the clarification below the line at the bottom and electronically sign. The CDI & [facility] Coding staff will review the response and follow-up if needed. Please note: Queries are made part of the Legal Health Record. If you have any questions, please contact the author of this message via ITS. Dr. Jignesh Reardon The patient presented with the acute anemia, lactic acidosis. History/Risk Factors: Hypertension, Chronic Atrial Fibrillation, Clinical Indicators: 69-year-old male who present for evaluation of 3 days of dark tarry stools. He is on Coumadin for history of atrial fibrillation. .He's very pale appearing, and hypotensive. Lab findings: Troponin: 0.043, 0.058 HGB 4.4, HCT 14.4, WBC 19.4 Lactic acid 7.6 Vital Signs on admission 86/56 83 18 97.7 EKG: Sinus rhythm 84 bpm, concerning for ischemia likely secondary to profound anemia (interpreted by Dr. Devi in ER) Other Clinical Indicators: 06/25/19 Pulmonary consult (Dr. Yoo) Abnormal troponin with evidence of subendocardial injury of the myocardium, could be related to profound anemia in the setting of an upper GI bleed. Treatment: Monitor CBC, Troponin Transfuse PRBC/Plasma per orders IV Fluids In your professional opinion, can you please clarify troponin positive likely due to hemodynamic mismatch? Type 2 MS (specify cause) Other acute ischemia heart disease Other, please specify Unable to determine (Last Revision: January 2018) -positive troponin due to renal failure. No acute coronary syndrome MTDD
[2019-06-27 15:32] VITALS: TEMP 98.3
--- NOTE | 2019-06-27 23:07 | P.DS ---
Providers Date of admission: 06/24/19 18:05 Expected date of discharge: 06/27/19 Attending physician: Jignesh Reardon Consults: 06/24/19 17:37 Consult Physician Stat Consulting Provider: Dinesh Yoo Consult Reason/Comments: ICU management Do you want consulting provider notified?: Already Contacted Consult Physician Stat Consulting Provider: Rickey Hernández Consult Reason/Comments: upper GIB Do you want consulting provider notified?: Already Contacted Primary care physician: Yeison Kelyl Hospital Course: Chief Complaint: Dark stools Hospital course: This is a 69-year-old patient of visiting physician Dr. Kelly. Chronic stable medical conditions include coronary artery disease with MS in 2017, persistent atrial flutter, BPH, chronic kidney disease stage III, hypertension, GERD, bilateral foot drop with contracture. Patient lives with his brother. Uses a wheelchair to get about. Patient's had 2 or 3 days of black stools at home. Was discovered to have a hemoglobin of 4.4 in the ER. Total of 3 units were given. Admitted to the ICU. Patient now the best of historians. Questionable abdominal pain. Does feel weak and. Admitted for the same. GI was consulted. Hemoglobin and by discharge was 8.9 EGD showed-no active bleeding. Some gastritis Colonoscopy showed-moderate to severe left-sided diverticulosis and small polyps removed from ascending and transverse colon. Okay with GI to be discharged Consultation: Dr. Piper from GI Dr. Meyers from pulmonary Physical examination: VITAL SIGNS: 99.2, 64, 21, 161/73, 96% room air GENERAL: Propped up in bed, comfortable. EYES: Pupils equal. Conjunctiva pale. HEENT: External appearance of nose and ears normal, oral cavity grossly normal. NECK: JVD not raised; masses not palpable. HEART: First and second heart sounds are normal; no edema. LUNGS: Respiratory rate normal; decreased breath sounds. ABDOMEN: Soft, nontender, liver spleen not palpable, no masses palpable. PSYCH: Able to answer simple questionsl. EXTREMITIES: Bilateral foot drop with evidence of chronic ischemia in both the feet INVESTIGATIONS, reviewed in the clinical context: Hemoglobin 8.9 bun 31 creatinine 1.28 Admitting testing: White count 19.4 hemoglobin 4.4 platelets 254 INR 2.5 potassium 4.6 BUN 82 creatinine 1.77 Albumin 2.4 EKG-ST segment depression in anterolateral leads Chest x-ray film personally reviewed by me-lungs are clear Discharge diagnosis: -Acute severe GI bleed in a patient presented dark stools, likely upper GI bleed, exact source undetermined -Acute severe blood loss anemia from GI bleed hemoglobin 4.4, symptomatic. Received 3 units of packed RBCs -Moderate severity left-sided diverticulosis -Coronary artery disease with prior MS in 2017 and of bypass -BPH -Chronic kidney disease stage III from nephrosclerosis -Essential hypertension -GERD -Bilateral foot drop with contractures, chronic -Chronic intellectual delay Disposition: Home Patient Condition at Discharge: Stable Plan - Discharge Summary Discharge Rx Participant: Yes New Discharge Prescriptions: New Amoxicillin/Potassium Clav [Augmentin 875-125 Tablet] 1 tab PO BID 3 Days #6 tab Omeprazole [PriLOSEC] 20 mg PO AC-BRKFST #30 cap Continue Tamsulosin HCl [Flomax] 0.4 mg PO DAILY Melatonin 10 mg PO HS Metoprolol Tartrate [Lopressor] 12.5 mg PO BID Amiodarone [Cordarone] 200 mg PO DAILY Magnesium Oxide [Mag-Ox] 400 mg PO BID LORazepam [Ativan] 1 mg PO Q8H PRN PRN Reason: Anxiety HYDROcodone/APAP 7.5-325MG [[place] 7.5-325] 1 tab PO Q6H PRN PRN Reason: Pain Warfarin [Coumadin] 2 mg PO SUMOWETHFRSA risperiDONE 3 mg PO BID Sertraline [Zoloft] 100 mg PO DAILY Atorvastatin [Lipitor] 5 mg PO HS Sennosides [Senna] 17.2 mg PO HS Ursodiol 300 mg PO BID Discontinued Ranitidine HCl 150 mg PO BID Discharge Medication List Amiodarone [Cordarone] 200 mg PO DAILY 09/28/16 [History] Melatonin 10 mg PO HS 09/28/16 [History] Metoprolol Tartrate [Lopressor] 12.5 mg PO BID 09/28/16 [History] Tamsulosin HCl [Flomax] 0.4 mg PO DAILY 09/28/16 [History] HYDROcodone/APAP 7.5-325MG [[place] 7.5-325] 1 tab PO Q6H PRN 01/25/17 [History] LORazepam [Ativan] 1 mg PO Q8H PRN 04/10/17 [History] Magnesium Oxide [Mag-Ox] 400 mg PO BID 01/25/17 [History] Warfarin [Coumadin] 2 mg PO SUMOWETHFRSA 01/25/17 [History] Atorvastatin [Lipitor] 5 mg PO HS 06/24/19 [History] Sennosides [Senna] 17.2 mg PO HS 06/24/19 [History] Sertraline [Zoloft] 100 mg PO DAILY 06/24/19 [History] Ursodiol 300 mg PO BID 06/24/19 [History] risperiDONE 3 mg PO BID 06/24/19 [History] Amoxicillin/Potassium Clav [Augmentin 875-125 Tablet] 1 tab PO BID 3 Days #6 tab 06/27/19 [Rx] Omeprazole [PriLOSEC] 20 mg PO AC-BRKFST #30 cap 06/27/19 [Rx] Follow up Appointment(s)/Referral(s): [facility], [NON-STAFF] - 1-2 Days Yeison Kelly MD [Primary Care Provider] - 1-2 days Rickye Hernández MD [STAFF PHYSICIAN] - 1 Week () Patient Instructions/Handouts: Gastrointestinal Bleeding (DC), Anemia (DC) Activity/Diet/Wound Care/Special Instructions: CBC in 1 week Discharge Disposition: HOME SELF-CARE
== END 2019-06-27 16:16 | disposition home health service (06) | DRG 378 ==
LOC: EC 16:15 → 2SICU 18:05
PROVIDERS: ADMIT Hospitalist; ATTEND Hospitalist
PROC: 0DB98ZX Excision of Duodenum, Via Natural or Artificial Opening Endoscopic, Diagnostic (ICD-10-PCS; principal; 2019-06-26 10:25)
PROC: 0DB74ZX Excision of Stomach, Pylorus, Percutaneous Endoscopic Approach, Diagnostic (ICD-10-PCS; principal; 2019-06-26 10:25)
PROC: 0DBK8ZZ Excision of Ascending Colon, Via Natural or Artificial Opening Endoscopic (ICD-10-PCS; 2019-06-27)
PROC: 30233N1 Transfusion of Nonautologous Red Blood Cells into Peripheral Vein, Percutaneous Approach (ICD-10-PCS; 2019-06-27)
DX: K92.2 Gastrointestinal hemorrhage, unspecified (principal); D62 Acute posthemorrhagic anemia; E87.2 Acidosis; I12.9 Hypertensive chronic kidney disease with stage 1 through stage 4 chronic kidney disease, or unspecified chronic kidney disease; I48.2 Chronic atrial fibrillation; N18.3 Chronic kidney disease, stage 3 (moderate); M21.371 Foot drop, right foot; M21.372 Foot drop, left foot; D12.2 Benign neoplasm of ascending colon; D50.0 Iron deficiency anemia secondary to blood loss (chronic); E78.5 Hyperlipidemia, unspecified; F20.9 Schizophrenia, unspecified; I25.10 Atherosclerotic heart disease of native coronary artery without angina pectoris; I45.9 Conduction disorder, unspecified; K21.9 Gastro-esophageal reflux disease without esophagitis; K29.70 Gastritis, unspecified, without bleeding; K57.30 Diverticulosis of large intestine without perforation or abscess without bleeding; K64.8 Other hemorrhoids; N40.0 Benign prostatic hyperplasia without lower urinary tract symptoms; R79.1 Abnormal coagulation profile; T45.515A Adverse effect of anticoagulants, initial encounter; I25.2 Old myocardial infarction; Z79.01 Long term (current) use of anticoagulants; Z79.899 Other long term (current) drug therapy; Z86.19 Personal history of other infectious and parasitic diseases; Z87.440 Personal history of urinary (tract) infections; Z87.891 Personal history of nicotine dependence; Z95.1 Presence of aortocoronary bypass graft; Z95.3 Presence of xenogenic heart valve
CPT/HCPCS: 36415; 43239; 45380; 71045; 80048; 80053; 83605; 83735; 84145; 84484; 85025; 85027; 85610; 85730; 86850; 86900; 86901; 86920; 88305; 93005; 96365; 96368; 99291

== ENCOUNTER 2019-09-13 11:08 | Inpatient (IN) | payer OTHER ==
[~2019-09-13 11:08] MED LIST changes: +ATROPINE SULFATE 0.1 MG/ML 10ML SYRINGE ONE; -HUMAN PROTHROMBIN COMPLX 500 UNIT/16 ML VIAL IV ONE; +SODIUM BICARB 8.4% 50 ML SYR (1 MEQ/ML) ONE
[2019-09-13] MEDS ORDERED: SODIUM CHLORIDE 0.9% 1,000 ML IV STA (11:32)
[2019-09-13] MEDS ORDERED: MORPHINE SULFATE 4 MG/ML SYRINGE IV STA (11:32)
--- NOTE | 2019-09-13 11:38 | ED ---
Weakness HPI - General Chief complaint: Weakness Stated complaint: WEAKNESS Time Seen by Provider: 09/13/19 11:15 Source: patient, EMS, RN notes reviewed, old records reviewed Mode of arrival: EMS Limitations: no limitations - History of Present Illness Initial comments: Patient is a 69-year-old male presents emergency department today with worsening general weakness, abdominal pain, poor appetite. He also complains of chest pain shortness of breath and leg pain. has been treated for urinary tract infection by primary care doctor and his been on Keflex for the past 4 days. Patient has a past medical history of a tracheostomy, history of GI bleeds. He reports he's had no noted bloody stool.Patient ports that he has had a visiting nurse come to evaluate him. When asked about his CODE STATUS Patient reports that he believes he is a full code. History is generally pours Patient is generally weak. - Related Data Home Medications Medication Instructions Recorded Confirmed Amiodarone [Cordarone] 200 mg PO DAILY 09/28/16 06/24/19 Melatonin 10 mg PO HS 09/28/16 06/24/19 Metoprolol Tartrate [Lopressor] 12.5 mg PO BID 09/28/16 06/24/19 Tamsulosin HCl [Flomax] 0.4 mg PO DAILY 09/28/16 06/24/19 HYDROcodone/APAP 7.5-325MG [[place] 1 tab PO Q6H PRN 01/25/17 06/24/19 7.5-325] LORazepam [Ativan] 1 mg PO Q8H PRN 01/25/17 06/24/19 Magnesium Oxide [Mag-Ox] 400 mg PO BID 01/25/17 06/24/19 Warfarin [Coumadin] 2 mg PO SUMOWETHFRSA 01/25/17 06/24/19 Atorvastatin [Lipitor] 5 mg PO HS 06/24/19 06/24/19 Sennosides [Senna] 17.2 mg PO HS 06/24/19 06/24/19 Sertraline [Zoloft] 100 mg PO DAILY 06/24/19 06/24/19 Ursodiol 300 mg PO BID 06/24/19 06/24/19 risperiDONE 3 mg PO BID 06/24/19 06/24/19 Previous Rx's Medication Instructions Recorded Amoxicillin/Potassium Clav 1 tab PO BID 3 Days #6 tab 06/27/19 [Augmentin 875-125 Tablet] Omeprazole [PriLOSEC] 20 mg PO AC-BRKFST #30 cap 06/27/19 Allergies Allergy/AdvReac Type Severity Reaction Status Date / Time No Known Allergies Allergy Verified 06/24/19 16:40 Review of Systems ROS Statement: Those systems with pertinent positive or pertinent negative responses have been documented in the HPI. ROS Other: All systems not noted in ROS Statement are negative. Past Medical History Past Medical History: Atrial Fibrillation, GERD/Reflux, Hypertension Additional Past Medical History / Comment(s): irregular heart rhythm History of Any Multi-Drug Resistant Organisms: ESBL Date of last positivie culture/infection: 09/28/16 MDRO Source:: BLOOD E.COLI Past Surgical History: Unable to Obtain Additional Past Surgical History / Comment(s): Previous Tracheostomy, Porcine Valve, PEG tube with removal Past Anesthesia/Blood Transfusion Reactions: No Reported Reaction Past Psychological History: Unable to Obtain Smoking Status: Former smoker Past Alcohol Use History: Unable to Obtain Past Drug Use History: Unable to Obtain - Past Family History Father History Unknown: Yes Family Medical History: Unable to Obtain Mother History Unknown: Yes Family Medical History: Unable to Obtain General Exam - General Exam Comments Initial Comments: Patient is a very ill-appearing 69-year-old male. Frail. Limitations: no limitations General appearance: alert Head exam: Present: atraumatic, normocephalic, normal inspection Eye exam: Present: normal appearance, PERRL, EOMI. Absent: scleral icterus, conjunctival injection, periorbital swelling ENT exam: Present: normal exam, mucous membranes moist, other (Patient has a trachea.dry oropharynx.) Neck exam: Present: normal inspection. Absent: tenderness, meningismus, lymphadenopathy Respiratory exam: Present: normal lung sounds bilaterally. Absent: respiratory distress, wheezes, rales, rhonchi, stridor Cardiovascular Exam: Present: regular rate, normal rhythm, normal heart sounds. Absent: systolic murmur, diastolic murmur, rubs, gallop, clicks GI/Abdominal exam: Present: distended, tenderness, normal bowel sounds. Absent: soft, guarding, rebound, rigid Rectal exam: Present: other (Stage II pressure ulcer over buttocks.) Extremities exam: Present: normal inspection, full ROM, normal capillary refill, other (Patient has ulcerations or bilateral heels.). Absent: tenderness, pedal edema, joint swelling, calf tenderness Back exam: Present: normal inspection Neurological exam: Present: alert, oriented X3, CN II-XII intact Psychiatric exam: Present: normal affect, normal mood Skin exam: Present: dry, intact, normal color, other (pallor). Absent: warm, rash Course Vital Signs 09/13/19 09/13/19 11:14 11:20 Temperature 97.3 F L Pulse Rate 80 Respiratory 16 16 Rate Blood Pressure 112/87 O2 Sat by Pulse 99 Oximetry EKG Findings - EKG Comments: EKG Findings:: Repeat EKG performed at 1418 shows sinus rhythm with first degree AV block. Left ventricular hypertrophy. Inferior infarct age undetermined. Ventricular rate of 73 bpm. Care was 220 ms. QRS ration 140 ms. QT QTc is 464/511 ms. Medical Decision Making - Medical Decision Making This patient's a 69-year-old male, weak, multiple comorbidities including schizophrenia, generally poor historian. He presents today for progressive weakness, and family's concern for worsening infection. He has been treated with Keflex for concern for urinary tract infection for the past 4 days. He has significant abdominal distention, is complaining of diffuse abdominal pain. CT on pelvis was performed shows evidence of splenomegaly, and evidence of ascites. Patient urinalysis did show some mild infection at this time. A culture was obtained. Was given 1 g of Rocephin at this time. White blood cell count stable. Hemoglobin is stable at 9.7. This is improved on last testing. Patient's case was discussed with Dr. Nunez who discussed this with Dr. garnica. - Lab Data Result diagrams: 09/13/19 11:37 09/13/19 12:23 Lab Results 09/13/19 09/13/19 09/13/19 Range/Units 11:37 11:37 11:37 WBC 10.2 (3.8-10.6) k/uL RBC 4.29 L (4.30-5.90) m/uL Hgb 9.4 L (13.0-17.5) gm/dL Hct 31.3 L (39.0-53.0) % MCV 73.0 L (80.0-100.0) fL MCH 21.9 L (25.0-35.0) pg MCHC 30.0 L (31.0-37.0) g/dL RDW 19.4 H (11.5-15.5) % Plt Count 190 (150-450) k/uL Neutrophils % (Manual) 82 % Band Neutrophils % 1 % Lymphocytes % (Manual) 8 % Monocytes % (Manual) 9 % Neutrophils # (Manual) 8.40 H (1.3-7.7) k/uL Lymphocytes # (Manual) 0.82 L (1.0-4.8) k/uL Monocytes # (Manual) 0.92 (0-1.0) k/uL Nucleated RBCs 0 (0-0) /100 WBC Manual Slide Review Performed Hypochromasia Marked Poikilocytosis Slight Anisocytosis Slight Microcytosis Moderate Target Cells Present PT (9.0-12.0) sec INR (<1.2) APTT (22.0-30.0) sec Sodium (137-145) mmol/L Potassium (3.5-5.1) mmol/L Chloride (98-107) mmol/L Carbon Dioxide (22-30) mmol/L Anion Gap mmol/L BUN (9-20) mg/dL Creatinine (0.66-1.25) mg/dL Est GFR (CKD-EPI)AfAm (>60 ml/min/1.73 sqM) Est GFR (CKD-EPI)NonAf (>60 ml/min/1.73 sqM) Glucose (74-99) mg/dL Plasma Lactic Acid Gurpreet 2.1 H* (0.7-2.0) mmol/L Calcium (8.4-10.2) mg/dL Phosphorus (2.5-4.5) mg/dL Magnesium (1.6-2.3) mg/dL Total Bilirubin (0.2-1.3) mg/dL AST (17-59) U/L ALT (21-72) U/L Alkaline Phosphatase (38-126) U/L Troponin I (0.000-0.034) ng/mL Total Protein (6.3-8.2) g/dL Albumin (3.5-5.0) g/dL Urine Color Urine Appearance (Clear) Urine pH (5.0-8.0) Ur Specific [place] (1.001-1.035) Urine Protein (Negative) Urine Glucose (UA) (Negative) Urine Ketones (Negative) Urine Blood (Negative) Urine Nitrite (Negative) Urine Bilirubin (Negative) Urine Urobilinogen (<2.0) mg/dL Ur Leukocyte Esterase (Negative) Urine RBC (0-5) /hpf Urine WBC (0-5) /hpf Urine Bacteria (None) /hpf Urine Mucus (None) /hpf Stool Occult Blood Negative (Negative) Blood Type Blood Type Recheck Bld Type Recheck Status Antibody Screen Spec Expiration Date 09/13/19 09/13/19 09/13/19 Range/Units 12:23 12:23 12:23 WBC (3.8-10.6) k/uL RBC (4.30-5.90) m/uL Hgb (13.0-17.5) gm/dL Hct (39.0-53.0) % MCV (80.0-100.0) fL MCH (25.0-35.0) pg MCHC (31.0-37.0) g/dL RDW (11.5-15.5) % Plt Count (150-450) k/uL Neutrophils % (Manual) % Band Neutrophils % % Lymphocytes % (Manual) % Monocytes % (Manual) % Neutrophils # (Manual) (1.3-7.7) k/uL Lymphocytes # (Manual) (1.0-4.8) k/uL Monocytes # (Manual) (0-1.0) k/uL Nucleated RBCs (0-0) /100 WBC Manual Slide Review Hypochromasia Poikilocytosis Anisocytosis Microcytosis Target Cells PT 15.8 H (9.0-12.0) sec INR 1.6 H (<1.2) APTT 38.8 H (22.0-30.0) sec Sodium 138 (137-145) mmol/L Potassium 4.9 (3.5-5.1) mmol/L Chloride 109 H (98-107) mmol/L Carbon Dioxide 24 (22-30) mmol/L Anion Gap 5 mmol/L BUN 51 H (9-20) mg/dL Creatinine 1.33 H (0.66-1.25) mg/dL Est GFR (CKD-EPI)AfAm 63 (>60 ml/min/1.73 sqM) Est GFR (CKD-EPI)NonAf 55 (>60 ml/min/1.73 sqM) Glucose 100 H (74-99) mg/dL Plasma Lactic Acid Gurpreet (0.7-2.0) mmol/L Calcium 8.5 (8.4-10.2) mg/dL Phosphorus 3.7 (2.5-4.5) mg/dL Magnesium 2.4 H (1.6-2.3) mg/dL Total Bilirubin 2.1 H (0.2-1.3) mg/dL AST 103 H (17-59) U/L ALT 62 (21-72) U/L Alkaline Phosphatase 274 H (38-126) U/L Troponin I 0.014 (0.000-0.034) ng/mL Total Protein 5.2 L (6.3-8.2) g/dL Albumin 2.2 L (3.5-5.0) g/dL Urine Color Urine Appearance (Clear) Urine pH (5.0-8.0) Ur Specific [place] (1.001-1.035) Urine Protein (Negative) Urine Glucose (UA) (Negative) Urine Ketones (Negative) Urine Blood (Negative) Urine Nitrite (Negative) Urine Bilirubin (Negative) Urine Urobilinogen (<2.0) mg/dL Ur Leukocyte Esterase (Negative) Urine RBC (0-5) /hpf Urine WBC (0-5) /hpf Urine Bacteria (None) /hpf Urine Mucus (None) /hpf Stool Occult Blood (Negative) Blood Type Blood Type Recheck Bld Type Recheck Status Antibody Screen Spec Expiration Date 09/13/19 09/13/19 Range/Units 12:23 12:50 WBC (3.8-10.6) k/uL RBC (4.30-5.90) m/uL Hgb (13.0-17.5) gm/dL Hct (39.0-53.0) % MCV (80.0-100.0) fL MCH (25.0-35.0) pg MCHC (31.0-37.0) g/dL RDW (11.5-15.5) % Plt Count (150-450) k/uL Neutrophils % (Manual) % Band Neutrophils % % Lymphocytes % (Manual) % Monocytes % (Manual) % Neutrophils # (Manual) (1.3-7.7) k/uL Lymphocytes # (Manual) (1.0-4.8) k/uL Monocytes # (Manual) (0-1.0) k/uL Nucleated RBCs (0-0) /100 WBC Manual Slide Review Hypochromasia Poikilocytosis Anisocytosis Microcytosis Target Cells PT (9.0-12.0) sec INR (<1.2) APTT (22.0-30.0) sec Sodium (137-145) mmol/L Potassium (3.5-5.1) mmol/L Chloride (98-107) mmol/L Carbon Dioxide (22-30) mmol/L Anion Gap mmol/L BUN (9-20) mg/dL Creatinine (0.66-1.25) mg/dL Est GFR (CKD-EPI)AfAm (>60 ml/min/1.73 sqM) Est GFR (CKD-EPI)NonAf (>60 ml/min/1.73 sqM) Glucose (74-99) mg/dL Plasma Lactic Acid Gurpreet (0.7-2.0) mmol/L Calcium (8.4-10.2) mg/dL Phosphorus (2.5-4.5) mg/dL Magnesium (1.6-2.3) mg/dL Total Bilirubin (0.2-1.3) mg/dL AST (17-59) U/L ALT (21-72) U/L Alkaline Phosphatase (38-126) U/L Troponin I (0.000-0.034) ng/mL Total Protein (6.3-8.2) g/dL Albumin (3.5-5.0) g/dL Urine Color Yellow Urine Appearance Cloudy (Clear) Urine pH 6.0 (5.0-8.0) Ur Specific [place] 1.018 (1.001-1.035) Urine Protein Negative (Negative) Urine Glucose (UA) Negative (Negative) Urine Ketones Trace H (Negative) Urine Blood Small H (Negative) Urine Nitrite Negative (Negative) Urine Bilirubin 1+ H (Negative) Urine Urobilinogen 6.0 (<2.0) mg/dL Ur Leukocyte Esterase Moderate H (Negative) Urine RBC 8 H (0-5) /hpf Urine WBC 14 H (0-5) /hpf Urine Bacteria Many H (None) /hpf Urine Mucus Moderate H (None) /hpf Stool Occult Blood (Negative) Blood Type A Positive Blood Type Recheck A Pos Bld Type Recheck Status No Antibody Screen NEGATIVE Spec Expiration Date 09/16/2019232209/13/19 11:37 EKG performed at 1121 shows sinus rhythm, first-degree AV block. Left ventricular hypertrophy QRS widening. Cannot rule septal infarct. Inferior infarct. Ventricular rate 79 bpm period. It was 222 ms. QRS duration is 132 ms. QT QTc is 442/506 most seconds. - Radiology Data Radiology results: report reviewed Mild to moderate ascites. Bilateral renal cyst. Diverticulosis without diverticulitis. Bilateral inguinal hernias containing ascites. No bowel involvement is identified. Cholelithiasis splenomegaly. Small bilateral pleural fluid. Chest x-rays negative for any acute disease. Disposition Clinical Impression: Altered mental status, Urinary tract infection, Ascites, Lactic acidosis, Chest pain Disposition: ADMITTED IP TO THIS HOSP Condition: Stable Is patient prescribed a controlled substance at d/c from ED?: No Referrals: Yeison Kelly MD [Primary Care Provider] - 1-2 days Time of Disposition: 14:52
[2019-09-13 12:23] LABS: Anisocytosis Slight; HCT 31.3 % (39.0-53.0); HGB 9.4 gm/dL (13.0-17.5); Hypochromasia Marked; MCH 21.9 pg (25.0-35.0); Mean Platelet Volume 7.7; Microcytosis Moderate; Platelet Count 190 k/uL (150-450); Poikilocytosis Slight; RBC 4.29 m/uL (4.30-5.90); RDW 19.4 % (11.5-15.5); WBC 10.2 k/uL (3.8-10.6)
--- NOTE | 2019-09-13 12:25 | XR ---
EXAMINATION TYPE: XR chest 1V DATE OF EXAM: 09/13/2019 COMPARISON: 06/27/2019 INDICATION: Chest pain short of breath TECHNIQUE: Single frontal view of the chest is obtained. FINDINGS: The heart size is normal. The pulmonary vasculature is normal. The lungs are clear. Characterize overlies chest. Sternotomy wires are present from prior cardiac valve surgery. Previous right upper lobe infiltrate has resolved. IMPRESSION: 1. No acute pulmonary process.
[2019-09-13 12:52] LABS: Band Neutrophils % 1 %; Lymphocytes # (M) 0.82 k/uL (1.0-4.8); Monocytes # (M) 0.92 k/uL (0-1.0); Neutrophils % (M) 82 %; Nucleated Red Blood Cells 0 /100 WBC (0-0); Total Cells Counted 100
[2019-09-13 12:55] LABS: Target Cells Present
[2019-09-13 13:03] LABS: Albumin 2.2 g/dL (3.5-5.0); Calcium 8.5 mg/dL (8.4-10.2); Magnesium 2.4 mg/dL (1.6-2.3); Phosphorus 3.7 mg/dL (2.5-4.5); Potassium 4.9 mmol/L (3.5-5.1); Total Bilirubin 2.1 mg/dL (0.2-1.3); Total Protein 5.2 g/dL (6.3-8.2)
[2019-09-13 13:12] LABS: INR 1.6 (<1.2); Partial Thromboplastin Time 38.8 sec (22.0-30.0); Prothrombin Time 15.8 sec (9.0-12.0)
[2019-09-13] MEDS ORDERED: cefTRIAXone IN SWFI 1,000 MG/10 ML SYRINGE IVP STA (13:12)
[2019-09-13] MEDS ORDERED: SODIUM CHLORIDE 0.9% 1,000 ML IV ONE (13:12)
[2019-09-13 13:29] LABS: Appearance,Urine Cloudy (Clear); Bacteria,Urine Many /hpf; Bilirubin,Urine 1+ (Negative); Blood,Urine Small (Negative); Color,Urine Yellow; Glucose,Urine (UA) Negative (Negative); Ketones,Urine Trace (Negative); Leukocyte Esterase,Urine Moderate (Negative); Mucus,Urine Moderate /hpf; Nitrite,Urine Negative (Negative); Protein,Urine Negative (Negative); RBC,Urine 8 /hpf (0-5); Specific Gravity,Urine 1.018 (1.001-1.035)
--- NOTE | 2019-09-13 13:51 | CT ---
EXAMINATION TYPE: CT abdomen pelvis w con DATE OF EXAM: 09/13/2019 COMPARISON: None INDICATION: Generalized pain DLP: 2181.1 mGycm, Automated exposure control for dose reduction was used. CONTRAST: 80 mL of Isovue 300. Study performed without Oral Contrast TECHNIQUE: Axial images were obtained from above the diaphragm to the pubic rami in the axial plane a t 5 mm thick sections. Reconstructed images are reviewed on the computer in the coronal plane. FINDINGS: Limited CT sections are obtained the lung bases. Small left and minimal right pleural effusions are present. Dense coronary artery calcification is present. CT ABDOMEN: Liver: Normal Spleen: Splenomegaly is present. Pancreas: Normal Adrenal glands: The adrenal glands are normal. Gallbladder: Gallstones are present. Kidneys: No masses are evident. No hydronephrosis is present. Bilateral renal cysts are present. Th e largest measuring 4.2 cm is at the superior pole right kidney measures 17 Hounsfield units. Delaye d images were obtained through the kidneys, which remain unremarkable. Aorta: Vascular calcification is within the aorta. Inferior vena cava: Normal. CT PELVIS: Some right paracolic fluid is present lesser left paracolic fluid is present. Small amount of fluid is within the mesentery. Some more moderate fluid is within the anterior pelvis. Fluid exte nds in the inguinal hernias bilaterally. No bowel involvement is identified. Loops of bowel within the abdomen and pelvis are normal. There are loops of bowel which are incom pletely distended or lack oral contrast limiting their evaluation. There are some scattered diverticu li within the sigmoid colon. Appendix: Normal as visualized. Urinary bladder: Normal. Genitourinary structures: Prostate is prominent contains calcifications. Osseous structures: No suspicious lytic or sclerotic lesions. IMPRESSIONS: 1. Mild to moderate ascites. 2. Bilateral renal cysts. 3. Diverticulosis without acute diverticulitis. 4. Bilateral inguinal hernias containing ascites fluid. No bowel involvement is identified. 5. Cholelithiasis. 6. Splenomegaly. 7. Small bilateral pleural fluid
[2019-09-13] MEDS ORDERED: ACETAMINOPHEN TAB 325 MG TAB PO PRN (14:53)
[2019-09-13] MEDS ORDERED: ONDANSETRON 4 MG/2 ML VIAL IVP PRN (14:53)
[2019-09-13] MEDS ORDERED: NALOXONE 0.4 MG/ML 1 ML VIAL IV PRN (14:53)
[2019-09-13] MEDS ORDERED: IBUPROFEN 400 MG TAB PO PRN (14:53)
[2019-09-13] MEDS ORDERED: LORazepam 1 MG TAB PO PRN (14:58)
[2019-09-13] MEDS: WARFARIN 2 MG TAB PO SCH (18:05)
[2019-09-13] MEDS: risperiDONE 1 MG TAB PO SCH (21:49)
[2019-09-13] MEDS: ATORVASTATIN 10 MG TAB PO SCH (21:50)
[2019-09-13] MEDS: MAGNESIUM OXIDE 400 MG TAB PO SCH (21:50)
[2019-09-13] MEDS: METOPROLOL TARTRATE 12.5 MG TAB PO SCH (21:50)
[2019-09-13] MEDS: URSODIOL 300 MG CAP PO SCH (21:50)
[2019-09-13] MEDS: KETOROLAC 30 MG/ML 1 ML VIAL IVP PRN (23:28)
[2019-09-14] MEDS: MORPHINE SULFATE 4 MG/ML SYRINGE IV PRN (04:36)
--- NOTE | 2019-09-14 05:05 | P.CONS ---
History of Present Illness - Reason for Consult Consult date: 09/13/19 Urinary tract infection Requesting physician: Jignesh Reardon - Chief Complaint Weakness and abdominal pain x few days - History of Present Illness Patient is a 69-year-old male who has been brought into the ER for evaluation of abdominal pain and generalized weakness the patient's symptom has been going on for a few days before the patient has been brought into Hospital patient apparently was also diagnosed with a urinary tract infection in the outpatient setting apparently was on oral Keflex for about 4 days before he was brought in, patient overall is elevated with history most information has been obtained from review of the chart patient had been complaining of feeling weak and tired has been complaining of some abdominal pain and unfortunately unable to the denies having any nausea and vomiting did have some difficulty urination but no significant burning no nausea no vomiting or any diarrhea, workup in the ER so for the patient did have chest x-ray negative for any pneumonia patient did have a CT of abdominal pelvis that did show some ascites diverticulosis but no evidence of any hydronephrosis, review of his microbiological data and it juventino ws the patient did have a ESBL bacteremia in 2016 Patient also noticed to have some pressure ulcer however patient did not have any symptoms referable to it except some dull aching pain and is not aware of specific treatment for the sacral wound that he is currently receiving Review of Systems Positive point has been mentioned in the HPI rest of the systems are negative Past Medical History Past Medical History: Atrial Fibrillation, GERD/Reflux, Hypertension Additional Past Medical History / Comment(s): irregular heart rhythm History of Any Multi-Drug Resistant Organisms: ESBL Year Discovered:: 09/28/16 MDRO Source:: BLOOD E.COLI Past Surgical History: Unable to Obtain Additional Past Surgical History / Comment(s): Previous Tracheostomy, Porcine Valve, PEG tube with removal Past Anesthesia/Blood Transfusion Reactions: No Reported Reaction Past Psychological History: Unable to Obtain Smoking Status: Former smoker Past Alcohol Use History: Unable to Obtain Past Drug Use History: Unable to Obtain - Past Family History Father History Unknown: Yes Family Medical History: Unable to Obtain Mother History Unknown: Yes Family Medical History: Unable to Obtain Medications and Allergies Home Medications Medication Instructions Recorded Confirmed Type Amiodarone [Cordarone] 200 mg PO DAILY 09/28/16 09/13/19 History Melatonin 10 mg PO HS 09/28/16 09/13/19 History Metoprolol Tartrate [Lopressor] 12.5 mg PO BID 09/28/16 09/13/19 History Tamsulosin HCl [Flomax] 0.4 mg PO DAILY 09/28/16 09/13/19 History HYDROcodone/APAP 7.5-325MG [[place] 1 tab PO Q6H PRN 01/25/17 09/13/19 History 7.5-325] LORazepam [Ativan] 1 mg PO Q8H PRN 01/25/17 09/13/19 History Magnesium Oxide [Mag-Ox] 400 mg PO BID 01/25/17 09/13/19 History Warfarin [Coumadin] 2 mg PO SUMOWETHFRSA 01/25/17 09/13/19 History Sennosides [Senna] 17.2 mg PO HS 06/24/19 09/13/19 History Sertraline [Zoloft] 100 mg PO DAILY 06/24/19 09/13/19 History Ursodiol 300 mg PO BID 06/24/19 09/13/19 History risperiDONE 3 mg PO BID 06/24/19 09/13/19 History Omeprazole [PriLOSEC] 20 mg PO AC-BRKFST #30 cap 06/27/19 09/13/19 Rx Cephalexin [Keflex] 500 mg PO Q12HR 09/13/19 09/13/19 History Allergies Allergy/AdvReac Type Severity Reaction Status Date / Time No Known Allergies Allergy Verified 09/13/19 15:14 Physical Exam Vitals: Vital Signs Temp Pulse Resp BP Pulse Ox 09/13/19 15:00 70 15 112/87 99 09/13/19 14:50 68 12 112/87 98 09/13/19 14:40 68 11 L 112/87 98 09/13/19 14:30 70 12 112/87 98 09/13/19 14:20 73 10 L 112/87 98 09/13/19 14:10 73 23 112/87 98 09/13/19 14:00 72 11 L 112/87 99 09/13/19 13:50 71 12 112/87 98 09/13/19 13:40 73 12 112/87 99 09/13/19 13:30 112/87 09/13/19 13:20 112/87 09/13/19 13:10 80 11 L 112/87 100 11/27/19 13:01 79 16 112/87 99 09/13/19 12:50 78 16 112/87 99 09/13/19 12:40 77 12 112/87 100 09/13/19 12:30 76 16 112/87 99 09/13/19 12:20 74 8 L 112/87 99 09/13/19 12:10 72 12 112/87 99 09/13/19 12:00 74 16 112/87 99 09/13/19 11:50 74 16 112/87 99 09/13/19 11:40 76 16 112/87 99 09/13/19 11:30 112/87 09/13/19 11:20 16 112/87 98 09/13/19 11:14 97.3 F L 80 16 112/87 99 09/13/19 11:13 99 Intake and Output 09/13/19 09/13/19 09/13/19 06:59 14:59 22:59 Other: Weight 81.647 kg GENERAL DESCRIPTION: An elderly male lying in bed, no distress. No tachypnea or accessory muscle of respiration use. HEENT: Shows Pallor , no scleral icterus. Oral mucous membrane is dry. No pharyngeal erythema or thrush NECK: Trachea central, no thyromegaly. LUNGS: Unlabored breathing. Decreased breath sounds at the bases. No wheeze or crackle. HEART: S1, S2, regular rate and rhythm. No loud murmur ABDOMEN: Soft, no tenderness , guarding or rigidity, no organomegaly EXTREMITIES: No edema of feet. SKIN: No rash, no masses palpable. Patient did have a stage III sacral pressure ulcer with some slough tissue but no surrounding cellulitis NEUROLOGICAL: The patient is awake, alert, oriented x2, mood and affect normal. Results CBC & Chem 7: 09/13/19 11:37 09/13/19 12:23 Labs: Abnormal Lab Results - Last 24 Hours (Table) 09/13/19 09/13/19 09/13/19 Range/Units 11:37 11:37 12:23 RBC 4.29 L (4.30-5.90) m/uL Hgb 9.4 L (13.0-17.5) gm/dL Hct 31.3 L (39.0-53.0) % MCV 73.0 L (80.0-100.0) fL MCH 21.9 L (25.0-35.0) pg MCHC 30.0 L (31.0-37.0) g/dL RDW 19.4 H (11.5-15.5) % Neutrophils # (Manual) 8.40 H (1.3-7.7) k/uL Lymphocytes # (Manual) 0.82 L (1.0-4.8) k/uL PT 15.8 H (9.0-12.0) sec INR 1.6 H (<1.2) APTT 38.8 H (22.0-30.0) sec Chloride (98-107) mmol/L BUN (9-20) mg/dL Creatinine (0.66-1.25) mg/dL Glucose (74-99) mg/dL Plasma Lactic Acid Gurpreet 2.1 H* (0.7-2.0) mmol/L Magnesium (1.6-2.3) mg/dL Total Bilirubin (0.2-1.3) mg/dL AST (17-59) U/L Alkaline Phosphatase (38-126) U/L Total Protein (6.3-8.2) g/dL Albumin (3.5-5.0) g/dL Urine Ketones (Negative) Urine Blood (Negative) Urine Bilirubin (Negative) Ur Leukocyte Esterase (Negative) Urine RBC (0-5) /hpf Urine WBC (0-5) /hpf Urine Bacteria (None) /hpf Urine Mucus (None) /hpf 09/13/19 09/13/19 Range/Units 12:23 12:50 RBC (4.30-5.90) m/uL Hgb (13.0-17.5) gm/dL Hct (39.0-53.0) % MCV (80.0-100.0) fL MCH (25.0-35.0) pg MCHC (31.0-37.0) g/dL RDW (11.5-15.5) % Neutrophils # (Manual) (1.3-7.7) k/uL Lymphocytes # (Manual) (1.0-4.8) k/uL PT (9.0-12.0) sec INR (<1.2) APTT (22.0-30.0) sec Chloride 109 H (98-107) mmol/L BUN 51 H (9-20) mg/dL Creatinine 1.33 H (0.66-1.25) mg/dL Glucose 100 H (74-99) mg/dL Plasma Lactic Acid Gurpreet (0.7-2.0) mmol/L Magnesium 2.4 H (1.6-2.3) mg/dL Total Bilirubin 2.1 H (0.2-1.3) mg/dL AST 103 H (17-59) U/L Alkaline Phosphatase 274 H (38-126) U/L Total Protein 5.2 L (6.3-8.2) g/dL Albumin 2.2 L (3.5-5.0) g/dL Urine Ketones Trace H (Negative) Urine Blood Small H (Negative) Urine Bilirubin 1+ H (Negative) Ur Leukocyte Esterase Moderate H (Negative) Urine RBC 8 H (0-5) /hpf Urine WBC 14 H (0-5) /hpf Urine Bacteria Many H (None) /hpf Urine Mucus Moderate H (None) /hpf Assessment and Plan Assessment: 1-patient presented to hospital with generalized weakness and abdominal pain in this patient CT of abdominal pelvis didn't show any acute finding patient did have a positive UA and apparently has been treated in outpatient setting with oral Keflex without any improvement possibly cephalosporin resistant pathogen in this patient who did have a previous history of ESBL bacteremia will need to cover for it, till His cultures are finalized 2-stage III sacral pressure ulcer but no cellulitis (1) Stage III pressure ulcer of sacral region Current Visit: Yes Status: Acute Code(s): L89.153 - PRESSURE ULCER OF SACRAL REGION, STAGE 3 SNOMED Code(s): 449321336 (2) Urinary tract infection Current Visit: Yes Status: Acute Code(s): N39.0 - URINARY TRACT INFECTION, SITE NOT SPECIFIED SNOMED Code(s): 76738166 Plan: 1-Invanz 1 g daily while waiting for the urine culture finalized 2-medahoney to the sacral wound followed by moist dressing to be changed daily 3-air mattress to further worsening of his sacral wound We will follow on clinical condition and cultures to further adjust medication if needed Thank you for this consultation will follow this patient with you Time with Patient: Greater than 30
[2019-09-14] MEDS: URSODIOL 300 MG CAP PO SCH ×2 (09:29→21:21)
[2019-09-14] MEDS: risperiDONE 1 MG TAB PO SCH ×3 (09:29→21:22)
[2019-09-14] MEDS: METOPROLOL TARTRATE 12.5 MG TAB PO SCH ×2 (09:29→21:21)
[2019-09-14] MEDS: TAMSULOSIN 0.4 MG CAP.ER.24H PO SCH (09:30)
[2019-09-14] MEDS: ERTAPENEM 1 GM in SODIUM CHLORIDE 0.9% 50 ML IVPB SCH (09:30)
[2019-09-14] MEDS: MAGNESIUM OXIDE 400 MG TAB PO SCH ×2 (09:30→21:22)
[2019-09-14] MEDS: SERTRALINE 100 MG TAB PO SCH (09:30)
[2019-09-14] MEDS: AMIODARONE 200 MG TAB PO SCH (09:30)
--- NOTE | 2019-09-14 10:50 | CONS ---
CONSULTATION CHIEF COMPLAINT: Chest pain HISTORY OF PRESENT ILLNESS: Samuel Suggs is a 69-year-old gentleman who is was brought to the hospital with symptoms of generalized weakness and not feeling well and has been diagnosed with urinary tract infection. Somewhere along the line, he complained of chest pain for which Cardiology had been consulted. He also has a pressure ulcer involving his sacrum. At the time of my evaluation this morning, patient appears sleepy. He is a poor historian and I am not able to obtain much meaningful information from him. The patient does not have any chest discomfort at this time. PAST MEDICAL HISTORY: Significant for valve replacement, tracheostomy, atrial fibrillation, GERD, and hypertension. MEDICATIONS: Medications at home included amiodarone 200 daily, melatonin, Lopressor 12.5 b.i.d., Flomax, Ativan, Coumadin, Senna, Zoloft, Risperdal, Prilosec, and Keflex. ALLERGIES: There are no known drug allergies. FAMILY HISTORY: Negative for premature coronary artery disease. SOCIAL HISTORY: Negative for current smoking, EtOH abuse, or drug abuse. REVIEW OF SYSTEMS: HEENT is unremarkable. Cardiac as described above. Respiratory as described above. GI significant for abdominal discomfort. Genitourinary significant for urinary tract infection. PSYCHOSOCIAL: Negative. ENDOCRINE: Negative. HEMATOLOGICAL: Negative. Derm negative. Constitutional significant for fatigue tiredness and not feeling well. PHYSICAL EXAM: Patient is comfortable at rest. Afebrile. Heart rate is 73 beats per minute, blood pressure is 105/67, respirations 18. Chest exam reveals diminished air entry at the bases without any crackles or rhonchi. Heart exam reveals first and second heart sounds, irregular rhythm and a systolic murmur at the apex. ABDOMEN: Soft exam extremities did not reveal any edema. Peripheral pulses are palpable. EKG shows sinus rhythm with first-degree AV block and extensive intraventricular conduction delay with extensive ST-T wave changes. EKG changes are similar to his prior EKGs. INR is 1.6. Potassium is 4.9, BUN is 51, creatinine is 1.3. Troponins are negative. ASSESSMENT: 1. Precordial chest pain, sharp, atypical. Myocardial infarction is ruled out. 2. Abnormal EKG. 3. Paroxysmal atrial fibrillation. 4. History of prior bypass and valve replacement. Details of which are unclear. PLAN: I will obtain a 2D echo on him to evaluate his LV function and reassess the underlying prosthetic valve. Please continue Coumadin to maintain an INR of 2-2.5. He is on amiodarone which we are going to continue. We need to review his outpatient records to see how long he has been on this and why. LUL / BO: [id number] /
--- NOTE | 2019-09-14 15:09 | P.HPIM ---
History of Present Illness H&P Date: 09/14/19 Chief Complaint: Weakness, abdominal pain History of presenting complaint: This is a 69-year-old patient of visiting physician Dr. Kelly. Chronic stable medical conditions include coronary artery disease with ND in 2017, persistent atrial flutter, BPH, chronic kidney disease stage III, hypertension, GERD, bilateral foot drop with contracture, severe left-sided diverticulosis, chronic intellectual delay. Patient lives with his brother, Samson was also DPOA.. Uses a wheelchair to get about. History is obtained by the brother. At the bedside.Patient is at abdominal pain on and off for about 2 weeks. Describes it on the left side right-sided upper abdominal. Seems to wax and wane. No change in bowel pattern. Patient was seen by the family doctor Dr. Kelly who did prescribe antibiotics about 2 weeks ago. And antibiotics were changed. Patient has been feeling more weak. Tired. Decreased appetite. There is no shortness of breath no cough no fever. Some nausea still present. No vomiting. Review of systems: GEN.: Tired, decreased appetite EYES: [None] HEENT: [None] NECK: [None] RESPIRATORY: [None] CARDIOVASCULAR: [None] GASTROINTESTINAL: [As above] GENITOURINARY: [None] MUSCULOSKELETAL: [None] LYMPHATICS: [None] HEMATOLOGICAL: [None] PSYCHIATRY: [Intellectual delay] NEUROLOGICAL: [None] Physical examination: VITAL SIGNS: 97.3, 80, 16, 11 /, 99% room air GENERAL: Propped up in bed, awake EYES: Pupils equal. Conjunctiva pale. HEENT: External appearance of nose and ears normal, oral cavity grossly normal. Tracheostomy stoma NECK: JVD not raised; masses not palpable. HEART: First and second heart sounds are normal; no edema. LUNGS: Respiratory rate normal; decreased breath sounds. ABDOMEN: Soft, minimal tenderness, no guarding or rigidity, liver spleen not palpable, no masses palpable., Stage 3 sacral decubitus ulcer PSYCH: Able to answer simple questionsl. EXTREMITIES: Bilateral foot drop with evidence of chronic ischemia in both the feet INVESTIGATIONS, reviewed in the clinical context: White count 10.2 hemoglobin 9.4 progression 4.9 bun 51 creatinine 1.53 UA positive for leukoesterase WPC occult stool-negative EKG tracing personally reviewed by me-sinus rhythm with LVH pattern Chest x-ray film personally reviewed by me-some elevation of right diaphragm CT [id number]-[id number]-ag-moderate ascites, bilateral renal cyst, diverticulosis, bilateral inguinal hernia, cholelithiasis, splenomegaly, small bilateral pleural fluid EGD-colonoscopy done in June 2019 showed gastritis and diverticulosis. Assessment: --Patient has slight abdominal distention, ascites and splenomegaly. There is no obvious documented evidence of cirrhosis. Given that would also like to rule out portal or hepatic vein thrombosis. -Acute UTI with cystitis having failed outpatient treatment -Stage III sacral decubitus ulcer -Paroxysmal atrial flutter fibrillation, currently in sinus rhythm on Coumadin -Moderate severity left-sided diverticulosis -Coronary artery disease with prior ND in 2017 /bypass -BPH -Chronic kidney disease stage III from nephrosclerosis -Essential hypertension -GERD -Bilateral foot drop with contractures, chronic -Chronic intellectual delay -Coumadin monitoring Plan: Home medications resumed. Patient is both on IV Invanz. ID was consulted. We will also add Aldactone. We'll order a limited ultrasound to look for hepatic/portal vein thrombosis to account for the intra-abdominal findings. Care was discussed with patient brother at the the bedside. Past Medical History Past Medical History: Atrial Fibrillation, GERD/Reflux, Hypertension Additional Past Medical History / Comment(s): irregular heart rhythm History of Any Multi-Drug Resistant Organisms: ESBL Date of last positivie culture/infection: 09/28/16 MDRO Source:: BLOOD E.COLI Past Surgical History: Unable to Obtain Additional Past Surgical History / Comment(s): Previous Tracheostomy, Porcine Valve, PEG tube with removal Past Anesthesia/Blood Transfusion Reactions: No Reported Reaction Past Psychological History: Unable to Obtain Smoking Status: Former smoker Past Alcohol Use History: Unable to Obtain Past Drug Use History: Unable to Obtain - Past Family History Father History Unknown: Yes Family Medical History: Unable to Obtain Mother History Unknown: Yes Family Medical History: Unable to Obtain Medications and Allergies Home Medications Medication Instructions Recorded Confirmed Type Amiodarone [Cordarone] 200 mg PO DAILY 09/28/16 09/13/19 History Melatonin 10 mg PO HS 09/28/16 09/13/19 History Metoprolol Tartrate [Lopressor] 12.5 mg PO BID 09/28/16 09/13/19 History Tamsulosin HCl [Flomax] 0.4 mg PO DAILY 09/28/16 09/13/19 History HYDROcodone/APAP 7.5-325MG [[place] 1 tab PO Q6H PRN 01/25/17 09/13/19 History 7.5-325] LORazepam [Ativan] 1 mg PO Q8H PRN 01/25/17 09/13/19 History Magnesium Oxide [Mag-Ox] 400 mg PO BID 01/25/17 09/13/19 History Warfarin [Coumadin] 2 mg PO SUMOWETHFRSA 01/25/17 09/13/19 History Sennosides [Senna] 17.2 mg PO HS 06/24/19 09/13/19 History Sertraline [Zoloft] 100 mg PO DAILY 06/24/19 09/13/19 History Ursodiol 300 mg PO BID 06/24/19 09/13/19 History risperiDONE 3 mg PO BID 06/24/19 09/13/19 History Omeprazole [PriLOSEC] 20 mg PO AC-BRKFST #30 cap 06/27/19 09/13/19 Rx Cephalexin [Keflex] 500 mg PO Q12HR 09/13/19 09/13/19 History Allergies Allergy/AdvReac Type Severity Reaction Status Date / Time No Known Allergies Allergy Verified 09/13/19 15:14 Physical Exam Vitals: Vital Signs Temp Pulse Pulse Resp BP BP Pulse Ox 09/14/19 08:00 98 F 76 20 94/52 92 L 09/14/19 04:00 98.1 F 73 20 105/57 98 09/14/19 00:00 97.7 F 73 18 132/60 99 09/13/19 20:00 97.5 F L 78 18 105/58 97 09/13/19 17:30 97.4 F L 73 18 125/59 98 09/13/19 16:40 70 11 L 112/87 99 09/13/19 16:31 70 20 112/87 100 09/13/19 16:30 70 11 L 112/87 100 09/13/19 16:20 66 12 112/87 99 09/13/19 16:10 66 11 L 112/87 98 09/13/19 16:00 67 16 112/87 99 09/13/19 15:50 71 16 112/87 99 09/13/19 15:40 71 16 112/87 99 09/13/19 15:30 71 16 112/87 99 09/13/19 15:20 68 16 112/87 99 09/13/19 15:10 68 16 112/87 99 09/13/19 15:00 70 20 112/87 99 09/13/19 14:50 68 12 112/87 98 09/13/19 14:40 68 11 L 112/87 98 09/13/19 14:30 70 12 112/87 98 09/13/19 14:20 73 10 L 112/87 98 09/13/19 14:10 73 23 112/87 98 09/13/19 14:00 72 11 L 112/87 99 09/13/19 13:50 71 12 112/87 98 09/13/19 13:40 73 12 112/87 99 09/13/19 13:30 112/87 09/13/19 13:20 112/87 09/13/19 13:10 80 11 L 112/87 100 09/13/19 13:01 79 16 112/87 99 09/13/19 12:50 78 16 112/87 99 09/13/19 12:40 77 12 112/87 100 09/13/19 12:30 76 16 112/87 99 09/13/19 12:20 74 8 L 112/87 99 09/13/19 12:10 72 12 112/87 99 09/13/19 12:00 74 16 112/87 99 09/13/19 11:50 74 16 112/87 99 09/13/19 11:40 76 16 112/87 99 09/13/19 11:30 112/87 09/13/19 11:20 16 112/87 98 09/13/19 11:14 97.3 F L 80 16 112/87 99 09/13/19 11:13 99 Intake and Output 09/13/19 09/14/19 09/14/19 22:59 06:59 14:59 Intake Total 118 1080 360 Balance 118 1080 360 Intake: Oral 118 1080 360 Other: Voiding Method Diaper Diaper Diaper # Voids 2 Weight 81.647 kg 84 kg Results CBC & Chem 7: 09/13/19 11:37 09/13/19 12:23 Labs: Abnormal Lab Results - Last 24 Hours (Table) 09/13/19 09/13/19 09/13/19 Range/Units 11:37 11:37 12:23 RBC 4.29 L (4.30-5.90) m/uL Hgb 9.4 L (13.0-17.5) gm/dL Hct 31.3 L (39.0-53.0) % MCV 73.0 L (80.0-100.0) fL MCH 21.9 L (25.0-35.0) pg MCHC 30.0 L (31.0-37.0) g/dL RDW 19.4 H (11.5-15.5) % Neutrophils # (Manual) 8.40 H (1.3-7.7) k/uL Lymphocytes # (Manual) 0.82 L (1.0-4.8) k/uL PT 15.8 H (9.0-12.0) sec INR 1.6 H (<1.2) APTT 38.8 H (22.0-30.0) sec Chloride (98-107) mmol/L BUN (9-20) mg/dL Creatinine (0.66-1.25) mg/dL Glucose (74-99) mg/dL Plasma Lactic Acid Gurpreet 2.1 H* (0.7-2.0) mmol/L Magnesium (1.6-2.3) mg/dL Total Bilirubin (0.2-1.3) mg/dL AST (17-59) U/L Alkaline Phosphatase (38-126) U/L Total Protein (6.3-8.2) g/dL Albumin (3.5-5.0) g/dL Urine Ketones (Negative) Urine Blood (Negative) Urine Bilirubin (Negative) Ur Leukocyte Esterase (Negative) Urine RBC (0-5) /hpf Urine WBC (0-5) /hpf Urine Bacteria (None) /hpf Urine Mucus (None) /hpf 09/13/19 09/13/19 Range/Units 12:23 12:50 RBC (4.30-5.90) m/uL Hgb (13.0-17.5) gm/dL Hct (39.0-53.0) % MCV (80.0-100.0) fL MCH (25.0-35.0) pg MCHC (31.0-37.0) g/dL RDW (11.5-15.5) % Neutrophils # (Manual) (1.3-7.7) k/uL Lymphocytes # (Manual) (1.0-4.8) k/uL PT (9.0-12.0) sec INR (<1.2) APTT (22.0-30.0) sec Chloride 109 H (98-107) mmol/L BUN 51 H (9-20) mg/dL Creatinine 1.33 H (0.66-1.25) mg/dL Glucose 100 H (74-99) mg/dL Plasma Lactic Acid Gurpreet (0.7-2.0) mmol/L Magnesium 2.4 H (1.6-2.3) mg/dL Total Bilirubin 2.1 H (0.2-1.3) mg/dL AST 103 H (17-59) U/L Alkaline Phosphatase 274 H (38-126) U/L Total Protein 5.2 L (6.3-8.2) g/dL Albumin 2.2 L (3.5-5.0) g/dL Urine Ketones Trace H (Negative) Urine Blood Small H (Negative) Urine Bilirubin 1+ H (Negative) Ur Leukocyte Esterase Moderate H (Negative) Urine RBC 8 H (0-5) /hpf Urine WBC 14 H (0-5) /hpf Urine Bacteria Many H (None) /hpf Urine Mucus Moderate H (None) /hpf Microbiology - Last 24 Hours (Table) 09/13/19 12:50 Urine Culture - Preliminary Urine,Voided Thrombosis Risk Factor Assmnt - Choose All That Apply Any of the Below Risk Factors Present?: No Each Risk Factor Represents 2 Points: Age 61-74 years Thrombosis Risk Factor Assessment Total Risk Factor Score: 2 Thrombosis Risk Factor Assessment Level: Low Risk
[2019-09-14] MEDS: WARFARIN 2 MG TAB PO SCH (18:19)
[2019-09-14] MEDS: ATORVASTATIN 10 MG TAB PO SCH (21:22)
[2019-09-15] MEDS: KETOROLAC 30 MG/ML 1 ML VIAL IVP PRN ×2 (02:52→20:35)
--- NOTE | 2019-09-15 07:50 | ECHOF ---
Referral Reason:chest pain/history of A-fib MEASUREMENTS -------- HEIGHT: 180.3 cm WEIGHT: 83.9 kg BP: 105/57 RVIDd: 4.4 cm (< 3.3) IVSd: 2.2 cm (0.6 - 1.1) LVIDd: 3.4 cm (3.9 - 5.3) LVPWd: 2.0 cm (0.6 - 1.1) IVSs: 2.1 cm LVIDs: 2.4 cm LVPWs: 2.0 cm LAESV Index (A-L): 27.76 ml/m Ao Diam: 2.6 cm (2.0 - 3.7) AV Cusp: 1.2 cm (1.5 - 2.6) LA Diam: 3.9 cm (2.7 - 3.8) MV E Jean: 0.60 m/s MV DecT: 345 ms MV A Jean: 0.89 m/s MV E/A Ratio: 0.68 AV maxP.64 mmHg AV maxP.64 mmHg AV meanP.15 mmHg FINDINGS -------- Sinus rhythm. This was a technically difficult study with suboptimal views. The left ventricular size is normal. There is severe concentric left ventricular hypertrophy. Ove rall left ventricular systolic function is normal with, an EF between 55 - 60 %. The diastolic fill ing pattern is normal for the age of the patient 9.95. The right ventricle is moderately enlarged. Normal LA size by volume 22+/-6 ml/m2. The right atrium was not well visualized. 5.0mg of Lumason was utilized for enhancement of images Interatrial and interventricular septum intact. There is no evidence of aortic regurgitation. There is mild aortic stenosis present. Peak/mean gr adient across the Aortic Valve is 19.64mmHg / 12.15mmHg. Mild mitral annular calcification present. Mild mitral regurgitation is present. The tricuspid valve was not well visualized. Unable to estimate RVSP due to inadequate TR jet spect ral doppler profile. There is no pulmonic regurgitation present. The aortic root size is normal. IVC Not well visulized. There is no pericardial effusion. CONCLUSIONS -------- 1. Sinus rhythm. 2. This was a technically difficult study with suboptimal views. 3. The left ventricular size is normal. 4. There is severe concentric left ventricular hypertrophy. 5. Overall left ventricular systolic function is normal with, an EF between 55 - 60 %. 6. The diastolic filling pattern is normal for the age of the patient 9.95 7. The right ventricle is moderately enlarged. 8. Normal LA size by volume 22+/-6 ml/m2. 9. The right atrium was not well visualized. 10. 5.0mg of Lumason was utilized for enhancement of images 11. Interatrial and interventricular septum intact. 12. There is no evidence of aortic regurgitation. 13. There is mild aortic stenosis present. 14. Peak/mean gradient across the Aortic Valve is 19.64mmHg / 12.15mmHg. 15. Mild mitral annular calcification present. 16. Mild mitral regurgitation is present. 17. The tricuspid valve was not well visualized. 18. Unable to estimate RVSP due to inadequate TR jet spectral doppler profile. 19. There is no pulmonic regurgitation present. 20. The aortic root size is normal. 21. IVC Not well visulized. 22. There is no pericardial effusion. ED TRANSPORTER: Linda Dudley RDCS
[2019-09-15] MEDS: MAGNESIUM OXIDE 400 MG TAB PO SCH ×2 (08:14→20:33)
[2019-09-15] MEDS: AMIODARONE 200 MG TAB PO SCH (08:14)
[2019-09-15] MEDS: URSODIOL 300 MG CAP PO SCH ×2 (08:14→20:33)
[2019-09-15] MEDS: TAMSULOSIN 0.4 MG CAP.ER.24H PO SCH (08:15)
[2019-09-15] MEDS: SERTRALINE 100 MG TAB PO SCH (08:15)
[2019-09-15] MEDS: risperiDONE 1 MG TAB PO SCH ×2 (08:15→20:33)
[2019-09-15] MEDS: METOPROLOL TARTRATE 12.5 MG TAB PO SCH ×2 (08:15→20:33)
[2019-09-15] MEDS: ERTAPENEM 1 GM in SODIUM CHLORIDE 0.9% 50 ML IVPB SCH (08:38)
--- NOTE | 2019-09-15 09:03 | US ---
EXAMINATION TYPE: US abdomen limited DATE OF EXAM: 09/15/2019 COMPARISON: CT abdomen and pelvis 2 days ago. CLINICAL HISTORY: Hepatic vein / portal vein thrombosis.Assess liver. EXAM MEASUREMENTS: US exam is technically limited due to overlying bowel gas and patient's intoleranc e to probe pressure at RUQ and at epigastric area. Liver Length: 16.3 cm Gallbladder Wall: 0.8 cm CHD: 0.3 cm, CBD not seen due to overlying bowel gas Right Kidney: superior pole limitedly seen Pancreas: limitedly seen as is obscured by bowel gas Liver: periportal wall brightness is seen Gallbladder: limitedly seen due to overlying bowel gas; contracted Evidence for sonographic Bright's sign: yes CHD: wnl Right Kidney: limitedly seen as patient is unable to tolerate probe pressure; cyst seen in upper farrukh e MPV: portal vein blood flow is noted to liver, however, color flow is not easily seen wall to wall; d ilated MPV at16.5mm (normal < or =13.0mm) Common Hepatic artery flow is to liver Hepatic Vein Flow is to IVC as vessels were seen. RLQ Ascites: 6.3cm pocket A/P LLQ Ascites: 4.5cm pocket A/P Markedly suboptimal study as detailed above. Visualized pancreas within normal limits. Visualized cecil er heterogeneously hyperechoic consistent with known underlying hepatocellular disease. No ductal dil atation. Small amount of ascites bilateral lower quadrants. Satisfactory blood flow in prominent main portal vein. Poorly visualized contracted gallbladder IMPRESSION: Mild to minimal ascites not significant for paracentesis. Underlying hepatocellular disea se. Patent portal vein with hepatopedal flow..
[2019-09-15 10:04] LABS: INR 2.4 (<1.2); Prothrombin Time 23.4 sec (9.0-12.0)
--- NOTE | 2019-09-15 11:01 | P.CONS ---
History of Present Illness - Reason for Consult Consult date: 09/14/19 Abdominal pain, weakness Requesting physician: Jignesh Reardon - Chief Complaint Abdominal pain, weakness - History of Present Illness 69-year-old male with multiple medical comorbidities including coronary artery disease, atrial fibrillation, BPH, chronic kidney disease, hypertension, GERD, diverticulosis and anemia who presented to the hospital due to complaints of abd ominal pain and generalized weakness. Of note history is been taken and discussion with the patient's the ANGIE Davies (patient's brother) as well as in discussion with the medical team and review of the electronic medical record. Per the history the patient has been having some weakness. He was recently started on oral antibiotic therapy for urinary tract infection. Is also on complaining of some abdominal pain described as waxing and waning in intensity and located in the right upper quadrant of his abdomen. The patient's brother also feels that his urine has been darker than normal and he has noticed some yellowing of the patient's in. No history of alcohol abuse. No other new medic ations recently started. The patient was previously evaluated for anemia in June and underwent EGD on 06/26/2019 significant for gastritis and colonoscopy on 06/27/2019 with polypectomy and diverticulosis noted. On current admission patient was found to have a hemoglobin of 9.4 with MCV of 73, total bilirubin 2.1, alkaline phosphatase 274, AST 103, ALT 62, stool testing negative for occult blood. Computed tomography scan with multiple findings including ascites, renal cysts, inguinal hernia and cholelithiasis. Review of Systems ROS unobtainable: due to mental status Past Medical History Past Medical History: Atrial Fibrillation, GERD/Reflux, Hypertension Additional Past Medical History / Comment(s): irregular heart rhythm History of Any Multi-Drug Resistant Organisms: ESBL Year Discovered:: 09/28/16 MDRO Source:: BLOOD E.COLI Past Surgical History: Unable to Obtain Additional Past Surgical History / Comment(s): Previous Tracheostomy, Porcine Valve, PEG tube with removal Past Anesthesia/Blood Transfusion Reactions: No Reported Reaction Past Psychological History: Unable to Obtain Smoking Status: Former smoker Past Alcohol Use History: Unable to Obtain Past Drug Use History: Unable to Obtain - Past Family History Father History Unknown: Yes Family Medical History: Unable to Obtain Mother History Unknown: Yes Family Medical History: Unable to Obtain Medications and Allergies Home Medications Medication Instructions Recorded Confirmed Type Amiodarone [Cordarone] 200 mg PO DAILY 09/28/16 09/13/19 History Melatonin 10 mg PO HS 09/28/16 09/13/19 History Metoprolol Tartrate [Lopressor] 12.5 mg PO BID 09/28/16 09/13/19 History Tamsulosin HCl [Flomax] 0.4 mg PO DAILY 09/28/16 09/13/19 History HYDROcodone/APAP 7.5-325MG [[place] 1 tab PO Q6H PRN 01/25/17 09/13/19 History 7.5-325] LORazepam [Ativan] 1 mg PO Q8H PRN 01/25/17 09/13/19 History Magnesium Oxide [Mag-Ox] 400 mg PO BID 01/25/17 09/13/19 History Warfarin [Coumadin] 2 mg PO SUMOWETHFRSA 01/25/17 09/13/19 History Sennosides [Senna] 17.2 mg PO HS 06/24/19 09/13/19 History Sertraline [Zoloft] 100 mg PO DAILY 06/24/19 09/13/19 History Ursodiol 300 mg PO BID 06/24/19 09/13/19 History risperiDONE 3 mg PO BID 06/24/19 09/13/19 History Omeprazole [PriLOSEC] 20 mg PO AC-BRKFST #30 cap 06/27/19 09/13/19 Rx Cephalexin [Keflex] 500 mg PO Q12HR 09/13/19 09/13/19 History Allergies Allergy/AdvReac Type Severity Reaction Status Date / Time No Known Allergies Allergy Verified 09/13/19 15:14 Physical Exam Vitals: Vital Signs Temp Pulse Pulse Resp BP BP Pulse Ox 09/14/19 08:00 98 F 76 20 94/52 92 L 09/14/19 04:00 98.1 F 73 20 105/57 98 09/14/19 00:00 97.7 F 73 18 132/60 99 09/13/19 20:00 97.5 F L 78 18 105/58 97 09/13/19 17:30 97.4 F L 73 18 125/59 98 09/13/19 16:40 70 11 L 112/87 99 09/13/19 16:31 70 20 112/87 100 09/13/19 16:30 70 11 L 112/87 100 09/13/19 16:20 66 12 112/87 99 09/13/19 16:10 66 11 L 112/87 98 09/13/19 16:00 67 16 112/87 99 09/13/19 15:50 71 16 112/87 99 09/13/19 15:40 71 16 112/87 99 09/13/19 15:30 71 16 112/87 99 09/13/19 15:20 68 16 112/87 99 09/13/19 15:10 68 16 112/87 99 09/13/19 15:00 70 20 112/87 99 09/13/19 14:50 68 12 112/87 98 09/13/19 14:40 68 11 L 112/87 98 09/13/19 14:30 70 12 112/87 98 09/13/19 14:20 73 10 L 112/87 98 09/13/19 14:10 73 23 112/87 98 09/13/19 14:00 72 11 L 112/87 99 09/13/19 13:50 71 12 112/87 98 09/13/19 13:40 73 12 112/87 99 09/13/19 13:30 112/87 09/13/19 13:20 112/87 09/13/19 13:10 80 11 L 112/87 100 09/13/19 13:01 79 16 112/87 99 09/13/19 12:50 78 16 112/87 99 09/13/19 12:40 77 12 112/87 100 09/13/19 12:30 76 16 112/87 99 09/13/19 12:20 74 8 L 112/87 99 09/13/19 12:10 72 12 112/87 99 09/13/19 12:00 74 16 112/87 99 09/13/19 11:50 74 16 112/87 99 Intake and Output 09/13/19 09/14/19 09/14/19 22:59 06:59 14:59 Intake Total 118 1080 360 Balance 118 1080 360 Intake: Oral 118 1080 360 Other: Voiding Method Diaper Diaper Diaper # Voids 2 2 Weight 81.647 kg 84 kg 84 kg On physical examination, patient appears comfortable in no apparent distress. HEAD: Normocephalic, atraumatic. EYES: No scleral icterus. No conjunctival injection. MOUTH: No lesions, tongue midline. NECK: Trachea midline with some erythema around previous tracheostomy site, no gross abnormalities. CHEST: Decreased air entry in all lung hall. HEART: S1-S2 appreciated, irregularly irregular. ABDOMEN: Soft, obese and mildly tender to palpation. Bowel sounds are positive. No organomegaly. No guarding or rigidity. EXTREMITIES: No pedal edema. SKIN: No rashes, no jaundice. NEUROLOGIC: Alert. Bilateral foot drop. Results CBC & Chem 7: 09/13/19 11:37 09/13/19 12:23 Labs: Abnormal Lab Results - Last 24 Hours (Table) 09/13/19 09/13/19 09/13/19 Range/Units 11:37 11: 12:23 RBC 4.29 L (4.30-5.90) m/uL Hgb 9.4 L (13.0-17.5) gm/dL Hct 31.3 L (39.0-53.0) % MCV 73.0 L (80.0-100.0) fL MCH 21.9 L (25.0-35.0) pg MCHC 30.0 L (31.0-37.0) g/dL RDW 19.4 H (11.5-15.5) % Neutrophils # (Manual) 8.40 H (1.3-7.7) k/uL Lymphocytes # (Manual) 0.82 L (1.0-4.8) k/uL PT 15.8 H (9.0-12.0) sec INR 1.6 H (<1.2) APTT 38.8 H (22.0-30.0) sec Chloride (98-107) mmol/L BUN (9-20) mg/dL Creatinine (0.66-1.25) mg/dL Glucose (74-99) mg/dL Plasma Lactic Acid Gurpreet 2.1 H* (0.7-2.0) mmol/L Magnesium (1.6-2.3) mg/dL Total Bilirubin (0.2-1.3) mg/dL AST (17-59) U/L Alkaline Phosphatase (38-126) U/L Total Protein (6.3-8.2) g/dL Albumin (3.5-5.0) g/dL Urine Ketones (Negative) Urine Blood (Negative) Urine Bilirubin (Negative) Ur Leukocyte Esterase (Negative) Urine RBC (0-5) /hpf Urine WBC (0-5) /hpf Urine Bacteria (None) /hpf Urine Mucus (None) /hpf 09/13/19 09/13/19 Range/Units 12:23 12:50 RBC (4.30-5.90) m/uL Hgb (13.0-17.5) gm/dL Hct (39.0-53.0) % MCV (80.0-100.0) fL MCH (25.0-35.0) pg MCHC (31.0-37.0) g/dL RDW (11.5-15.5) % Neutrophils # (Manual) (1.3-7.7) k/uL Lymphocytes # (Manual) (1.0-4.8) k/uL PT (9.0-12.0) sec INR (<1.2) APTT (22.0-30.0) sec Chloride 109 H (98-107) mmol/L BUN 51 H (9-20) mg/dL Creatinine 1.33 H (0.66-1.25) mg/dL Glucose 100 H (74-99) mg/dL Plasma Lactic Acid Gurpreet (0.7-2.0) mmol/L Magnesium 2.4 H (1.6-2.3) mg/dL Total Bilirubin 2.1 H (0.2-1.3) mg/dL AST 103 H (17-59) U/L Alkaline Phosphatase 274 H (38-126) U/L Total Protein 5.2 L (6.3-8.2) g/dL Albumin 2.2 L (3.5-5.0) g/dL Urine Ketones Trace H (Negative) Urine Blood Small H (Negative) Urine Bilirubin 1+ H (Negative) Ur Leukocyte Esterase Moderate H (Negative) Urine RBC 8 H (0-5) /hpf Urine WBC 14 H (0-5) /hpf Urine Bacteria Many H (None) /hpf Urine Mucus Moderate H (None) /hpf Microbiology - Last 24 Hours (Table) 09/13/19 12:50 Urine Culture - Preliminary Urine,Voided CT scan - abdomen: report reviewed (Computed tomography scan of the abdomen with multiple findings including ascites, renal cysts, diverticulosis, cholelithiasis and inguinal hernia) Assessment and Plan (1) Elevated liver enzymes Narrative/Plan: 69-year-old male with multiple medical comorbidities who presented due to wea kness and abdominal pain. Computed tomography scan of the abdomen with multiple findings including cholelithiasis and ascites. This was evaluated further with ultrasound of the abdomen however there were appeared only to be minimal ascites and not enough for paracentesis. Unclear etiology of elevated liver enzymes as the patient was recently started on antibiotic therapy with Keflex and is also on chronic therapy with amiodarone. Will order full liver serologies to rule out intrinsic liver disease however on last admission patient's liver enzymes were found to be normal. There was no evidence of biliary pathology on ultrasound of the abdomen however study was somewhat limited by bowel gas pattern and if patient is able to tolerate further evaluation with MRCP this would be beneficial to rule out choledocholithiasis. Current Visit: Yes Status: Acute Code(s): R74.8 - ABNORMAL LEVELS OF OTHER SERUM ENZYMES SNOMED Code(s): 732482213 (2) Chronic anemia Narrative/Plan: Previously evaluated with EGD and colonoscopy in 06/2019 significant only for gastritis, polypectomy and extensive diverticulosis. Patient's hemoglobin currently stable at baseline. Likely multifactorial and due to anemia of chronic disease and underlying kidney disease. Current Visit: Yes Status: Acute Code(s): D64.9 - ANEMIA, UNSPECIFIED SNOMED Code(s): 546848521 (3) Abdominal pain Current Visit: Yes Status: Acute Code(s): R10.9 - UNSPECIFIED ABDOMINAL PAIN SNOMED Code(s): 78507991 (4) Ascites Narrative/Plan: Ultrasound abdomen performed that did not show enough ascites for paracentesis. Current Visit: Yes Status: Acute Code(s): R18.8 - OTHER ASCITES SNOMED Code(s): 666789039 Plan: Supportive care Okay for diet Continue to monitor hemoglobin and transfuse as needed Continue to monitor CMP Full liver serologies ordered and pending Ultrasound abdomen ordered and reviewed, insufficient fluid for paracentesis at this time, however patient may be able to have fluid removed in order for fluid studies and to confirm etiology of ascites MRCP recommended if patient is able to tolerate to rule out choledocholithiasis/biliary pathology as source of pain Thank you for allowing us to participate in the care of your patient, we will continue to follow
--- NOTE | 2019-09-15 14:57 | PN ---
PROGRESS NOTE Samuel is a 69-year-old gentleman that is admitted to hospital with generalized weakness, not feeling well and chest pain. His chest discomfort is sharp, atypical. He has a history of prior bypass surgery and valve replacement, currently on Coumadin. On an echocardiogram I performed, LV function is normal. The gradience across the aortic valve 19 and 12. PHYSICAL EXAM: Comfortable at rest. Vital signs are stable. There is no jugular venous distention. Chest exam reveals good air entry bilaterally. Heart exam reveals first and second heart sounds. Ejection systolic murmur in the aortic area. Abdomen is soft. Exam of extremities did not reveal any edema. Peripheral pulses are felt. LABS: Show that INR is 2.4. ASSESSMENT: 1. Precordial chest pain, sharp, atypical. Myocardial infarction ruled out. 2. Paroxysmal atrial fibrillation. 3. History of valve replacement. 4. Bypass surgery. The patient is doing better. Continue current medications. MMODL / IJN: [id number] /
[2019-09-15 15:52] LABS: Alpha Fetoprotein, Tumor Mkr <2.5 ng/mL (0.0-7.9)
[2019-09-15 15:53] LABS: Protein, Total 4.5 g/dL (6.2-8.2)
[2019-09-15] MEDS: WARFARIN 2 MG TAB PO SCH (16:24)
[2019-09-15 17:55] LABS: Hepatitis A Antibody IgM Non-Reactive (Non-Reactive); Hepatitis B Core IgM Non-Reactive (Non-Reactive); Hepatitis B Surface Antigen Non-Reactive (Non-Reactive); Hepatitis C IgG Antibody Non-Reactive (Non-Reactive)
[2019-09-15] MEDS: ATORVASTATIN 10 MG TAB PO SCH (20:33)
--- NOTE | 2019-09-15 23:03 | P.PN ---
Progress Note - Text Progress Note Date: 09/15/19 Chief Complaint: Weakness, abdominal pain Interval history: This is a 69-year-old patient of visiting physician Dr. Kelly. Chronic stable medical conditions include coronary artery disease with MA in 2017, persistent atrial flutter, BPH, chronic kidney disease stage III, hypertension, GERD, bilateral foot drop with contracture, severe left-sided diverticulosis, chronic intellectual delay. Patient lives with his brother, Samson was also DPOA.. Uses a wheelchair to get about. History is obtained by the brother. At the bedside.Patient is at abdominal pain on and off for about 2 weeks. Describes it on the left side right-sided upper abdominal. Seems to wax and wane. No change in bowel pattern. Patient was seen by the family doctor Dr. Kelly who did prescribe antibiotics about 2 weeks ago. And antibiotics were changed. Patient has been feeling more weak. Tired. Decreased appetite. There is no shortness of breath no cough no fever. Some nausea still present. No vomiting. Admitted with UTI and cystitis, sacral decubitus ulcer. And chest pain. Today-laying in bed. Comfortable. Abdominal ultrasound negative for portal vein thrombosis. Minimal ascites. Comfortable.. Review of systems: Was done for constitutional, cardiovascular, GI, pulmonary. relevant finding as above Active Medications Acetaminophen (Tylenol Tab) 650 mg PO Q6HR PRN PRN Reason: Mild Pain or Fever > 100.5 Last Admin: 09/15/19 22:39 Dose: 650 mg Documented by: Amiodarone HCl (Cordarone) 200 mg PO DAILY [facility] Last Admin: 09/15/19 08:14 Dose: 200 mg Documented by: Atorvastatin Calcium (Lipitor) 5 mg PO HS [facility] Last Admin: 09/15/19 20:33 Dose: 5 mg Documented by: Ertapenem 1 gm/ Sodium (Chloride) 50 mls @ 100 mls/hr IVPB DAILY [facility]; Protocol Last Admin: 09/15/19 08:38 Dose: 100 mls/hr Documented by: Ibuprofen (Motrin) 400 mg PO Q6HR PRN PRN Reason: Mild Pain or Fever > 100.5 Ketorolac Tromethamine (Toradol) 15 mg IVP Q6HR PRN PRN Reason: Moderate Pain Stop: 09/18/19 14:54 Last Admin: 09/15/19 20:35 Dose: 15 mg Documented by: Lorazepam (Ativan) 1 mg PO Q8H PRN PRN Reason: Anxiety Magnesium Oxide (Mag-Ox) 400 mg PO BID [facility] Last Admin: 09/15/19 20:33 Dose: 400 mg Documented by: Metoprolol Tartrate (Lopressor) 12.5 mg PO BID [facility] Last Admin: 09/15/19 20:33 Dose: 12.5 mg Documented by: Morphine Sulfate (Morphine Sulfate (Inj)) 4 mg IV Q4HR PRN PRN Reason: Severe Pain Last Admin: 09/14/19 04:36 Dose: 4 mg Documented by: Naloxone HCl (Narcan) 0.2 mg IV Q2M PRN PRN Reason: Opioid Reversal Ondansetron HCl (Zofran) 4 mg IVP Q8HR PRN PRN Reason: Nausea And Vomiting Last Admin: 09/14/19 21:21 Dose: 4 mg Documented by: Risperidone (Risperdal) 3 mg PO BID [facility] Last Admin: 09/15/19 20:33 Dose: 3 mg Documented by: Sertraline HCl (Zoloft) 100 mg PO DAILY [facility] Last Admin: 09/15/19 08:15 Dose: 100 mg Documented by: Tamsulosin HCl (Flomax) 0.4 mg PO DAILY [facility] Last Admin: 09/15/19 08:15 Dose: 0.4 mg Documented by: Ursodiol (Actigall) 300 mg PO BID [facility] Last Admin: 09/15/19 20:33 Dose: 300 mg Documented by: Warfarin Sodium (Coumadin) 2 mg PO [id number] [facility] Last Admin: 09/15/19 16:24 Dose: 2 mg Documented by: Physical examination: VITAL SIGNS: 98.1, 76, 18, 102/56, 95% room air GENERAL: Laying in bed, comfortable EYES: Pupils equal. Conjunctiva pale. HEENT: External appearance of nose and ears normal, oral cavity grossly normal. Tracheostomy stoma NECK: JVD not raised; masses not palpable. HEART: First and second heart sounds are normal; no edema. LUNGS: Respiratory rate normal; decreased breath sounds. ABDOMEN: Soft, minimal tenderness, no guarding or rigidity, liver spleen not palpable, no masses palpable., DERMATOLOGICAL: Stage 3 sacral decubitus ulcer PSYCH: Able to answer simple questionsl. EXTREMITIES: Bilateral foot drop with evidence of chronic ischemia in both the feet INVESTIGATIONS, reviewed in the clinical context: INR 2.4 Previous testing White count 10.2 hemoglobin 9.4 progression 4.9 bun 51 creatinine 1.53 UA positive for leukoesterase WPC occult stool-negative EKG tracing personally reviewed by me-sinus rhythm with LVH pattern Chest x-ray film personally reviewed by me-some elevation of right diaphragm CT [id number]-moderate ascites, bilateral renal cyst, diverticulosis, bilateral inguinal hernia, cholelithiasis, splenomegaly, small bilateral pleural fluid EGD-colonoscopy done in June 2019 showed gastritis and diverticulosis. Abdomen-PORTAL VEIN FLOW PRESENT Hepatitis screen negative. 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 Ferritin 51. JOSUE screen negative. Assessment: --Patient has slight abdominal distention, mild ascites and splenomegaly. Hepatocellular disease. -Acute UTI with cystitis having failed outpatient treatment -Stage III sacral decubitus ulcer -Paroxysmal atrial flutter fibrillation, currently in sinus rhythm on Coumadin -Moderate severity left-sided diverticulosis -Coronary artery disease with prior MA in 2017 /bypass -BPH -Chronic kidney disease stage III from nephrosclerosis -Essential hypertension -GERD -Bilateral foot drop with contractures, chronic -Chronic intellectual delay -Coumadin monitoring Plan: No further workup by cardiology. Some further blood tests were ordered by GI. Other medications to continue. Hopefully patient can be discharged tomorrow.
[2019-09-15] MEDS: MORPHINE SULFATE 4 MG/ML SYRINGE IV PRN (23:12)
[2019-09-16 07:57] LABS: INR 2.8 (<1.2); Prothrombin Time 27.4 sec (9.0-12.0)
[2019-09-16] MEDS: URSODIOL 300 MG CAP PO SCH ×2 (09:07→20:46)
[2019-09-16] MEDS: risperiDONE 1 MG TAB PO SCH ×2 (09:07→20:46)
[2019-09-16] MEDS: METOPROLOL TARTRATE 12.5 MG TAB PO SCH ×2 (09:07→20:45)
[2019-09-16] MEDS: AMIODARONE 200 MG TAB PO SCH (09:08)
[2019-09-16] MEDS: TAMSULOSIN 0.4 MG CAP.ER.24H PO SCH (09:08)
[2019-09-16] MEDS: KETOROLAC 30 MG/ML 1 ML VIAL IVP PRN (09:08)
[2019-09-16] MEDS: SERTRALINE 100 MG TAB PO SCH (09:08)
[2019-09-16] MEDS: ERTAPENEM 1 GM in SODIUM CHLORIDE 0.9% 50 ML IVPB SCH (09:09)
[2019-09-16] MEDS: MAGNESIUM OXIDE 400 MG TAB PO SCH ×2 (09:09→20:45)
--- NOTE | 2019-09-16 10:18 | PN ---
PROGRESS NOTE FOLLOW-UP NOTE: Samuel is a 69-year-old gentleman with history of coronary artery disease, status post CABG, status post prior valve replacement, on long-term Coumadin, history of tracheostomy, who presented to hospital with symptoms of not feeling well and chest pain. This morning patient remains comfortable at rest, but he is not particularly responsive to questioning, which has been the case all along. On exam, heart rate is 80 beats per minute. Blood pressure is 103/59, respiratory rate is 18. Chest exam reveals good air entry bilaterally. Heart exam reveals first and second heart sounds and ejection systolic murmur in the aortic area. Abdomen is soft. Examination of extremities reveals trace edema. Dorsalis pedis pulses are diminished. Labs show an INR of 2.8. Troponins are negative. Hepatitis screening is negative. Patient is currently on Lipitor, Cordarone 200 mg daily, Lopressor. ASSESSMENT: 1. Coronary artery disease, status post coronary artery bypass grafting. 2. Paroxysmal atrial fibrillation. 3. Chronic renal insufficiency. 4. Stage III decubitus ulcer. PLAN: Continue current medications from cardiac standpoint. INR is therapeutic. Continue to monitor the INR and adjust the Coumadin dose. The rest of his issues are being addressed by the hospitalist. MMRAMONL / ENOCN: [id number] /
[2019-09-16 11:06] LABS: Ceruloplasmin 27.9 mg/dL (20.0-60.0)
[2019-09-16 12:09] LABS: Calcium 8.6 mg/dL (8.4-10.2); Potassium 5.1 mmol/L (3.5-5.1); Total Protein 4.9 g/dL (6.3-8.2)
[2019-09-16] MEDS: LACTULOSE 20 GM/30 ML CUP PO SCH ×3 (13:04→20:46)
--- NOTE | 2019-09-16 18:03 | XR ---
EXAMINATION TYPE: XR chest 2V DATE OF EXAM: 09/16/2019 COMPARISON: Chest x-ray September 13, 2019. HISTORY: Shortness of breath. TECHNIQUE: Frontal and lateral views of the chest are obtained. FINDINGS: Low lung volumes with reticular interstitial changes redemonstrated. There is no suspiciou s focal air space opacity or pneumothorax seen. Small bilateral pleural effusions noted on lateral v iew. The cardiac silhouette size is mildly enlarged with atherosclerotic aorta. Overlying sternal wir es redemonstrated. The osseous structures are intact. IMPRESSION: Mild interstitial edema and small bilateral pleural effusions on background chronic pare nchymal fibrotic change and mild cardiomegaly. Correlate clinically for suspected CHF exacerbation.
[2019-09-16] MEDS: WARFARIN 2 MG TAB PO SCH (18:25)
--- NOTE | 2019-09-16 19:01 | P.PN ---
Subjective Progress Note Date: 09/15/19 Principal diagnosis: Elevated liver enzymes, chronic anemia Patient is seen lying in bed with no acute complaints. Tolerating diet. Objective - Vital Signs Vital signs: Vital Signs Temp 97.9 F 09/15/19 08:00 Pulse 75 09/15/19 08:00 Resp 18 09/15/19 08:00 BP 111/55 09/15/19 08:00 Pulse Ox 97 09/15/19 08:00 Intake & Output 09/14/19 09/15/19 09/15/19 18:59 06:59 18:59 Intake Total 600 1000 120 Balance 600 1000 120 Weight 84 kg 80.5 kg Intake: Oral 600 1000 120 Other: Voiding Method Diaper Diaper # Voids 1 1 - Exam On physical examination, patient appears comfortable in no apparent distress. HEAD: Normocephalic, atraumatic. EYES: No scleral icterus. No conjunctival injection. MOUTH: No lesions, tongue midline. NECK: Trachea midline with previous tracheostomy site is intact, no gross abnormalities. CHEST: No respiratory distress. ABDOMEN: Soft, obese. Bowel sounds are positive. No organomegaly. No guarding or rigidity. EXTREMITIES: No pedal edema. SKIN: No rashes, no jaundice. NEUROLOGIC: Alert and interactive. - Labs CBC & Chem 7: 09/13/19 11:37 09/16/19 07:41 Labs: Abnormal Lab Results - Last 24 Hours (Table) 09/15/19 Range/Units 09:21 PT 23.4 H (9.0-12.0) sec INR 2.4 H (<1.2) Microbiology - Last 24 Hours (Table) 09/13/19 12:50 Urine Culture - Preliminary Urine,Voided Gram Neg Bacilli 09/13/19 12:00 Blood Culture - Preliminary Blood No Growth after 24 hours Assessment and Plan (1) Elevated liver enzymes Narrative/Plan: 69-year-old male with multiple medical comorbidities who presented due to weakness and abdominal pain. Computed tomography scan of the abdomen with multiple findings including cholelithiasis and ascites. This was evaluated further with ultrasound of the abdomen however there were appeared only to be minimal ascites and not enough for paracentesis. Unclear etiology of elevated liver enzymes as the patient was recently started on antibiotic therapy with Keflex and is also on chronic therapy with amiodarone. Will order full liver serologies to rule out intrinsic liver disease however on last admission patient's liver enzymes were found to be normal, which has been negative to date. There was no evidence of biliary pathology on ultrasound of the abdomen however study was somewhat limited by bowel gas pattern and if patient is able to tolerate further evaluation with MRCP this would be beneficial to rule out choledocholithiasis. Current Visit: Yes Status: Acute Code(s): R74.8 - ABNORMAL LEVELS OF OTHER SERUM ENZYMES SNOMED Code(s): 817101534 (2) Chronic anemia Narrative/Plan: Previously evaluated with EGD and colonoscopy in 06/2019 significant only for gastritis, polypectomy and extensive diverticulosis. Patient's hemoglobin currently stable at baseline. Likely multifactorial and due to anemia of c hronic disease and underlying kidney disease. Current Visit: Yes Status: Acute Code(s): D64.9 - ANEMIA, UNSPECIFIED SNOMED Code(s): 600230421 (3) Abdominal pain Current Visit: Yes Status: Acute Code(s): R10.9 - UNSPECIFIED ABDOMINAL PAIN SNOMED Code(s): 24309622 (4) Ascites Narrative/Plan: Ultrasound abdomen performed that did not show enough ascites for paracentesis. Current Visit: Yes Status: Acute Code(s): R18.8 - OTHER ASCITES SNOMED Code(s): 902786228 Plan: Supportive care Okay for diet Continue to monitor hemoglobin and transfuse as needed Continue to monitor CMP Full liver serologies ordered and has been negative to date Ultrasound abdomen ordered and reviewed, insufficient fluid for paracentesis at this time, however patient may be able to have fluid removed in order for fluid studies and to confirm etiology of ascites MRCP recommended if patient is able to tolerate to rule out choledocholithiasis/biliary pathology as source of pain Thank you for allowing us to participate in the care of your patient, we will continue to follow
[2019-09-16] MEDS ORDERED: FUROSEMIDE 10 MG/ML 10 ML VIAL IV STA (19:04)
--- NOTE | 2019-09-16 19:04 | P.PN ---
Subjective Progress Note Date: 09/16/19 Principal diagnosis: Elevated liver enzymes, chronic anemia Patient is seen lying in bed with no acute complaints, in no acute events reported by nursing staff. Tolerating his diet. Objective - Vital Signs Vital signs: Vital Signs Temp 97.3 F L 09/16/19 16:53 Pulse 49 L 09/16/19 16:53 Resp 18 09/16/19 16:53 BP 103/50 09/16/19 16:53 Pulse Ox 91 L 09/16/19 16:53 Intake & Output 09/16/19 09/16/19 09/17/19 06:59 18:59 06:59 Intake Total 160 480 Output Total 269 Balance -109 480 Weight 83.5 kg Intake: IV 160 0.9 160 Oral 480 Output: Post Void Residual 269 Other: Voiding Method Diaper Diaper # Voids 1 1 - Exam On physical examination, patient appears comfortable in no apparent distress. HEAD: Normocephalic, atraumatic. EYES: No scleral icterus. No conjunctival injection. MOUTH: No lesions, tongue midline. NECK: Trachea midline with previous tracheostomy site is intact, no gross abnormalities. CHEST: No respiratory distress. ABDOMEN: Soft, obese. Bowel sounds are positive. No organomegaly. No guarding or rigidity. EXTREMITIES: No pedal edema. SKIN: No rashes, no jaundice. NEUROLOGIC: Alert and interactive. - Labs CBC & Chem 7: 09/13/19 11:37 09/16/19 07:41 Labs: Abnormal Lab Results - Last 24 Hours (Table) 09/15/19 09/15/19 09/16/19 Range/Units 09:21 09:21 07:41 PT (9.0-12.0) sec INR (<1.2) Sodium 134 L (137-145) mmol/L Carbon Dioxide 20 L (22-30) mmol/L BUN 67 H (9-20) mg/dL Creatinine 1.87 H (0.66-1.25) mg/dL Glucose 113 H (74-99) mg/dL Transferrin 194.0 L (204.0-354.0) mg/dL Total Bilirubin 2.0 H (0.2-1.3) mg/dL AST 127 H (17-59) U/L Alkaline Phosphatase 267 H (38-126) U/L Ammonia (<30) umol/L Total Protein 4.9 L (6.3-8.2) g/dL Albumin 2.0 L (3.5-5.0) g/dL Matzq-9-Pgoctkcxjtf 278.0 H (99.0-242.0) mg/dL 09/16/19 09/16/19 Range/Units 07:41 12:09 PT 27.4 H (9.0-12.0) sec INR 2.8 H (<1.2) Sodium (137-145) mmol/L Carbon Dioxide (22-30) mmol/L BUN (9-20) mg/dL Creatinine (0.66-1.25) mg/dL Glucose (74-99) mg/dL Transferrin (204.0-354.0) mg/dL Total Bilirubin (0.2-1.3) mg/dL AST (17-59) U/L Alkaline Phosphatase (38-126) U/L Ammonia 128 H (<30) umol/L Total Protein (6.3-8.2) g/dL Albumin (3.5-5.0) g/dL Ltqkl-6-Eainjuedmho (99.0-242.0) mg/dL Microbiology - Last 24 Hours (Table) 09/13/19 12:00 Blood Culture - Preliminary Blood No Growth after 72 hours 09/13/19 12:50 Urine Culture - Final Urine,Voided Escherichia coli Assessment and Plan (1) Elevated liver enzymes Narrative/Plan: 69-year-old male with multiple medical comorbidities who presented due to wea kness and abdominal pain. Computed tomography scan of the abdomen with multiple findings including cholelithiasis and ascites. This was evaluated further with ultrasound of the abdomen however there were appeared only to be minimal ascites and not enough for paracentesis. Unclear etiology of elevated liver enzymes as the patient was recently started on antibiotic therapy with Keflex and is also on chronic therapy with amiodarone. Will order full liver serologies to rule out intrinsic liver disease however on last admission patient's liver enzymes were found to be normal, which has been negative to date. There was no evidence of biliary pathology on ultrasound of the abdomen however study was somewhat limited by bowel gas pattern and if patient is able to tolerate further evaluation with MRCP this would be beneficial to rule out choledocholithiasis. Current Visit: Yes Status: Acute Code(s): R74.8 - ABNORMAL LEVELS OF OTHER SERUM ENZYMES SNOMED Code(s): 113978841 (2) Chronic anemia Narrative/Plan: Previously evaluated with EGD and colonoscopy in 06/2019 significant only for gastritis, polypectomy and extensive diverticulosis. Patient's hemoglobin currently stable at baseline. Likely multifactorial and due to anemia of chronic disease and underlying kidney disease. Current Visit: Yes Status: Acute Code(s): D64.9 - ANEMIA, UNSPECIFIED SNOMED Code(s): 786642767 (3) Abdominal pain Current Visit: Yes Status: Acute Code(s): R10.9 - UNSPECIFIED ABDOMINAL PAIN SNOMED Code(s): 61668186 (4) Ascites Narrative/Plan: Ultrasound abdomen performed that did not show enough ascites for paracentesis. Current Visit: Yes Status: Acute Code(s): R18.8 - OTHER ASCITES SNOMED Code(s): 748327886 Plan: Supportive care Okay for diet Continue to monitor hemoglobin and transfuse as needed Continue to monitor CMP Full liver serologies ordered and has been negative to date Ultrasound abdomen ordered and reviewed, insufficient fluid for paracentesis at this time, however patient may be able to have fluid removed in order for fluid studies and to confirm etiology of ascites MRCP recommended if patient is able to tolerate to rule out choledocholithiasis/biliary pathology as source of pain Thank you for allowing us to participate in the care of your patient, we will continue to follow
[2019-09-16 20:35] LABS: Glucose,Whole Blood 136 mg/dL (75-99)
[2019-09-16] MEDS: ATORVASTATIN 10 MG TAB PO SCH (20:45)
--- NOTE | 2019-09-16 20:45 | P.PN ---
Progress Note - Text Progress Note Date: 09/16/19 Chief Complaint: Weakness, abdominal pain Interval history: This is a 69-year-old patient of visiting physician Dr. Kelly. Chronic stable medical conditions include coronary artery disease with [place] in 2017, persistent atrial flutter, BPH, chronic kidney disease stage III, hypertension, GERD, bilateral foot drop with contracture, severe left-sided diverticulosis, chronic intellectual delay. Patient lives with his brother, Samson was also DPOA.. Uses a wheelchair to get about. History is obtained by the brother. At the bedside.Patient is at abdominal pain on and off for about 2 weeks. Describes it on the left side right-sided upper abdominal. Seems to wax and wane. No change in bowel pattern. Patient was seen by the family doctor Dr. Kelly who did prescribe antibiotics about 2 weeks ago. And antibiotics were changed. Patient has been feeling more weak. Tired. Decreased appetite. There is no shortness of breath no cough no fever. Some nausea still present. No vomiting. Admitted with UTI and cystitis, sacral decubitus ulcer. And chest pain. No further workup per cardiology.Abdominal ultrasound negative for portal vein thrombosis. Minimal ascites. Today-further workup for liver disease being done by GI. Patient laying in bed. Not much of an appetite. Ordered ammonia this afternoon. Did come back to be at 128. Lactulose was started Review of systems: Was done for constitutional, cardiovascular, GI, pulmonary. relevant finding as above Active Medications Acetaminophen (Tylenol Tab) 650 mg PO Q6HR PRN PRN Reason: Mild Pain or Fever > 100.5 Last Admin: 09/15/19 22:39 Dose: 650 mg Documented by: Amiodarone HCl (Cordarone) 200 mg PO DAILY [facility] Last Admin: 09/16/19 09:08 Dose: 200 mg Documented by: Atorvastatin Calcium (Lipitor) 5 mg PO HS [facility] Last Admin: 09/15/19 20:33 Dose: 5 mg Documented by: Ertapenem 1 gm/ Sodium (Chloride) 50 mls @ 100 mls/hr IVPB DAILY [facility]; Protocol Last Admin: 09/16/19 09:09 Dose: 100 mls/hr Documented by: Ibuprofen (Motrin) 400 mg PO Q6HR PRN PRN Reason: Mild Pain or Fever > 100.5 Ketorolac Tromethamine (Toradol) 15 mg IVP Q6HR PRN PRN Reason: Moderate Pain Stop: 09/18/19 14:54 Last Admin: 09/16/19 09:08 Dose: 15 mg Documented by: Lactulose (Cephulac) 20 gm PO TID [facility] Last Admin: 09/16/19 18:25 Dose: 20 gm Documented by: Lorazepam (Ativan) 1 mg PO Q8H PRN PRN Reason: Anxiety Last Admin: 09/16/19 00:16 Dose: 1 mg Documented by: Magnesium Oxide (Mag-Ox) 400 mg PO BID [facility] Last Admin: 09/16/19 09:09 Dose: 400 mg Documented by: Metoprolol Tartrate (Lopressor) 12.5 mg PO BID [facility] Last Admin: 09/16/19 09:07 Dose: 12.5 mg Documented by: Naloxone HCl (Narcan) 0.2 mg IV Q2M PRN PRN Reason: Opioid Reversal Ondansetron HCl (Zofran) 4 mg IVP Q8HR PRN PRN Reason: Nausea And Vomiting Last Admin: 09/14/19 21:21 Dose: 4 mg Documented by: Risperidone (Risperdal) 3 mg PO BID [facility] Last Admin: 09/16/19 09:07 Dose: 3 mg Documented by: Sertraline HCl (Zoloft) 100 mg PO DAILY [facility] Last Admin: 09/16/19 09:08 Dose: 100 mg Documented by: Tamsulosin HCl (Flomax) 0.4 mg PO DAILY [facility] Last Admin: 09/16/19 09:08 Dose: 0.4 mg Documented by: Ursodiol (Actigall) 300 mg PO BID [facility] Last Admin: 09/16/19 09:07 Dose: 300 mg Documented by: Warfarin Sodium (Coumadin) 2 mg PO [id number] [facility] Last Admin: 09/16/19 18:25 Dose: 2 mg Documented by: Physical examination: VITAL SIGNS: 97.9, 80, 18, 106/97, 92% room air GENERAL: Laying in bed, comfortable EYES: Pupils equal. Conjunctiva pale. HEENT: External appearance of nose and ears normal, oral cavity grossly normal. Tracheostomy stoma NECK: JVD not raised; masses not palpable. HEART: First and second heart sounds are normal; no edema. LUNGS: Respiratory rate normal; decreased breath sounds. ABDOMEN: Soft, minimal tenderness, no guarding or rigidity, liver spleen not palpable, no masses palpable., DERMATOLOGICAL: Stage 3 sacral decubitus ulcer PSYCH: Able to answer simple questionsl. EXTREMITIES: Bilateral foot drop with evidence of chronic ischemia in both the feet INVESTIGATIONS, reviewed in the clinical context: INR 2.8, potassium 5.1, bun 67, creatinine 1.87, ammonia 128, albumin 2 Previous testing White count 10.2 hemoglobin 9.4 progression 4.9 bun 51 creatinine 1.53 UA positive for leukoesterase WPC occult stool-negative EKG tracing personally reviewed by me-sinus rhythm with LVH pattern Chest x-ray film personally reviewed by me-some elevation of right diaphragm CT [id number]-moderate ascites, bilateral renal cyst, diverticulosis, bilateral inguinal hernia, cholelithiasis, splenomegaly, small bilateral pleural fluid EGD-colonoscopy done in June 2019 showed gastritis and diverticulosis. Abdomen-PORTAL VEIN FLOW PRESENT Hepatitis screen negative. 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 Ferritin 51. JOSUE screen negative. Assessment: --Patient has slight abdominal distention, mild ascites and splenomegaly. Hepatocellular disease. Exact cause unknown. -Hepatic encephalopathy. Patient being started on lactulose today. -Acute UTI with cystitis having failed outpatient treatment -Stage III sacral decubitus ulcer -Paroxysmal atrial flutter fibrillation, currently in sinus rhythm on Coumadin -Moderate severity left-sided diverticulosis -Coronary artery disease with prior [place] in 2017 /bypass -BPH -Chronic kidney disease stage III from nephrosclerosis -Essential hypertension -GERD -Bilateral foot drop with contractures, chronic -Chronic intellectual delay -Coumadin monitoring Plan: Patient started on lactulose today. Some concern about fluid overload. One dose of IV Lasix been given. Checks x-ray did show possible fluid overload. We'll decrease the dose of Risperdal to 2 mg twice a day
[2019-09-16] MEDS: risperiDONE 2 MG TAB PO SCH (21:07)
[2019-09-17] MEDS ORDERED: FUROSEMIDE 10 MG/ML 4 ML VIAL IV STA (02:19)
[2019-09-17] MEDS: IPRATROPIUM-ALBUTEROL 3 ML NEB INHALATION PRN ×5 (02:45→20:15)
--- NOTE | 2019-09-17 04:07 | XR ---
EXAMINATION TYPE: XR chest 1V portable DATE OF EXAM: 09/17/2019 COMPARISON: Yesterday HISTORY: Short of breath TECHNIQUE: Single frontal view of the chest is obtained. FINDINGS: There is mild pulmonary interstitial edema. There is slight blunting of the costophrenic a ngles. There are sternal wires. There are chest leads. IMPRESSION: There is minimal pulmonary interstitial edema. There are probably small pleural effusion s. Chest appears slightly worse than last exam.
[2019-09-17 04:23] LABS: Glucose,Whole Blood 160 mg/dL (75-99)
[2019-09-17 04:25] LABS: ABG Base Excess -7.4 mmol/L; ABG HCO3 17 mmol/L (21-25); ABG Oxygen Saturation 96.6 % (94-97); ABG PCO2 25 mmHg (35-45); ABG PH 7.44 (7.35-7.45); ABG PO2 82 mmHg (83-108); ABG TCO2 18 mmol/L (19-24); Allen Test Performed? Yes
[2019-09-17] MEDS: NOREPINEPHRINE 4 MG in SODIUM CHLORIDE 0.9% 250 ML IV SCH ×3 (04:35→16:53)
[2019-09-17 04:45] LABS: Anisocytosis Moderate; HCT 37.3 % (39.0-53.0); HGB 10.7 gm/dL (13.0-17.5); Hypochromasia Marked; MCH 20.8 pg (25.0-35.0); MCHC 28.6 g/dL (31.0-37.0); MCV 72.8 fL (80.0-100.0); Mean Platelet Volume 6.5; Microcytosis Marked; Platelet Count 218 k/uL (150-450); Poikilocytosis Slight; RBC 5.12 m/uL (4.30-5.90); RDW 20.3 % (11.5-15.5); WBC 8.8 k/uL (3.8-10.6)
[2019-09-17 05:31] LABS: Albumin 2.3 g/dL (3.5-5.0); Magnesium 3.1 mg/dL (1.6-2.3); Phosphorus 4.8 mg/dL (2.5-4.5); Potassium 5.3 mmol/L (3.5-5.1); Total Bilirubin 2.4 mg/dL (0.2-1.3); Total Protein 5.3 g/dL (6.3-8.2)
[2019-09-17 05:46] LABS: Creatine Kinase MB 0.8 ng/mL (0.0-2.4)
[2019-09-17 06:15] LABS: Troponin I 0.046 ng/mL (0.000-0.034)
[2019-09-17 06:32] LABS: INR 3.6 (<1.2); Prothrombin Time 34.7 sec (9.0-12.0)
[2019-09-17 06:58] LABS: Band Neutrophils % 34 %; Eosinophils # (M) 0.09 k/uL (0-0.7); Lymphocytes # (M) 0.44 k/uL (1.0-4.8); Monocytes # (M) 0.26 k/uL (0-1.0); Neutrophils % (M) 58 %; Nucleated Red Blood Cells 0 /100 WBC (0-0); Total Cells Counted 200
[2019-09-17 06:59] LABS: Target Cells Present
[2019-09-17 07:01] LABS: Large Platelets Present
[2019-09-17 07:03] LABS: Polychromasia Present
[2019-09-17 07:04] LABS: Ovalocytes Present
[2019-09-17] MEDS ORDERED: SODIUM CHLORIDE 0.9% 1,000 ML IV ONE (10:15)
--- NOTE | 2019-09-17 10:16 | P.CNPUL ---
History of Present Illness Consult date: 09/17/19 Chief complaint: Hypotension, generalized weakness History of present illness: This is a 69-year-old male patient with multiple medical problems and comorbidities. The patient got transferred to the intensive care unit yesterday after Karen team was called for hypotension and some degree of shortness of breath. The patient was being diuresed on the floor with IV Lasix. Currently is in intensive care unit. He is on pressors and norepinephrine infusion is running at 0.3 g per KG per minute. Urine output is in order of 20 mL an hour. His creatinine is on the rise and I noted the creatinine is, from a baseline of 1.3 is up to 2.68 over the past 3 days. As such, the patient is an acute kidney injury. Going back to the history, the patient has history of coronary artery disease and he has had a previous IN in 2017 and his undergone bypass surgery and a aortic valve replacement/repair.. The patient also has history of proximal atrial fibrillation, chronic stage III kidney disease, BPH, hypertension, severe left-sided diverticulosis, bilateral foot drop and the patient is wheelchair bound and he has chronic intellectual delay. He lives with his brother who happens to be his DPOAE. He moves around with the help of a wheelchair. According to the history, the patient was having some increased nausea and emesis and generalized weakness and he was treated for UTI on outpatient basis. During this current admission, the urine was checked and was positive for E. coli and the patient was found to have an ESBL producing E. coli and currently is on IV Invanz regarding this ongoing infection. The patient does not have any chronic indwelling Panda catheter per history. He has had previous E. coli septicemia back in 2016. His current blood cultures are negative. The patient has a normal left ventricle ejection fraction with an EF around 55-60% and he has concentric left ventricular hypertrophy. His echocardiogram also showed a mild aortic stenosis and aortic valve gradient was 19 mmHg. Right ventricular pressures were not accurately estimated. He is still on long-term anticoagulation regarding his atrial fibrillation. His INR today is at 3.6. He was hospitalized back in June 2019 for a GI bleed. His previous crit colonoscopy showed diverticulosis. Small polyps were removed from the colon from the ascending and transverse colon and there was moderate to severe diverticulosis and this was completed in June 2019. He also had a EGD that showed no active bleeding and some mild antral and body gastritis. The CAT scan of the abdomen and pelvis that was done also during this current admission showed diverticulosis without diverticulitis. There was mild to moderate ascites, bilateral inguinal hernias containing ascitic fluid and there was no bowel identified and there was cholelithiasis and splenomegaly and small bilateral pleural effusions. This morning the patient intensive care unit. Is quite lethargic. He does not communicate. Upon called his name, he would look and may identify the person and then not react. Upon giving him a painful stimulation, he will say that he is hurting. He would withdraw his upper extremities. Movement is very limited in lower extremities. Abdomen is distended. He does have diffuse anasarca. There is some abdominal distention and extensive edema in lower extremities bilaterally. His serum albumin is currently at 2.3. His proBNP level is 12,400. His liver function tests are showing an AST of 134 ALT of 62 without follow phosphatase of 310. His troponin is 0.8. Serum INR from today is at 3.6. The serum ammonia level from today is at 28 and dropped from 128. Review of Systems Able to take it for review of system as the patient seems to be mentally challenged and a poor historian. The history given by him is quite unreliable. ROS unobtainable: due to mental status ROS unobtainable: due to mental status Past Medical History Past Medical History: Atrial Fibrillation, GERD/Reflux, Hypertension Additional Past Medical History / Comment(s): Coronary artery disease, previous bypass surgery, history of chronic atrial fibrillation, hypertension, history of psychiatric disorder and intellectual delay, hyperlipidemia, acid reflux, previous history of aortic valve replacement, bioprosthetic valve, previous history of ESBL producing E. coli urinary tract infection, previous history of GI bleed, severe diverticulosis, bilateral drop feet, wheelchair-bound, previous history of tracheostomy for prolonged vent dependent respiratory failure. History of Any Multi-Drug Resistant Organisms: ESBL Date of last positivie culture/infection: 09/28/16 MDRO Source:: BLOOD E.COLI Past Surgical History: Unable to Obtain Additional Past Surgical History / Comment(s): Previous Tracheostomy, Porcine Valve, PEG tube with removal Past Anesthesia/Blood Transfusion Reactions: No Reported Reaction Past Psychological History: Unable to Obtain Smoking Status: Former smoker Past Alcohol Use History: Unable to Obtain Past Drug Use History: Unable to Obtain - Past Family History Father History Unknown: Yes Family Medical History: Unable to Obtain Mother History Unknown: Yes Family Medical History: Unable to Obtain Medications and Allergies Home Medications Medication Instructions Recorded Confirmed Type Amiodarone [Cordarone] 200 mg PO DAILY 09/28/16 09/13/19 History Melatonin 10 mg PO HS 09/28/16 09/13/19 History Metoprolol Tartrate [Lopressor] 12.5 mg PO BID 09/28/16 09/13/19 History Tamsulosin HCl [Flomax] 0.4 mg PO DAILY 09/28/16 09/13/19 History HYDROcodone/APAP 7.5-325MG [[place] 1 tab PO Q6H PRN 01/25/17 09/13/19 History 7.5-325] LORazepam [Ativan] 1 mg PO Q8H PRN 01/25/17 09/13/19 History Magnesium Oxide [Mag-Ox] 400 mg PO BID 01/25/17 09/13/19 History Warfarin [Coumadin] 2 mg PO SUMOWETHFRSA 01/25/17 09/13/19 History Sennosides [Senna] 17.2 mg PO HS 06/24/19 09/13/19 History Sertraline [Zoloft] 100 mg PO DAILY 06/24/19 09/13/19 History Ursodiol 300 mg PO BID 06/24/19 09/13/19 History risperiDONE 3 mg PO BID 06/24/19 09/13/19 History Omeprazole [PriLOSEC] 20 mg PO AC-BRKFST #30 cap 06/27/19 09/13/19 Rx Cephalexin [Keflex] 500 mg PO Q12HR 09/13/19 09/13/19 History Allergies Allergy/AdvReac Type Severity Reaction Status Date / Time No Known Allergies Allergy Verified 09/13/19 15:14 Physical Exam Vitals: Vital Signs Temp Pulse Pulse Resp BP BP BP 09/17/19 09:40 62 18 87/55 09/17/19 09:35 82 24 93/50 09/17/19 09:30 65 19 78/48 09/17/19 09:25 65 17 93/53 09/17/19 09:20 64 18 71/36 09/17/19 09:15 67 20 71/45 09/17/19 09:10 78 18 74/37 09/17/19 09:05 72 18 80/56 09/17/19 09:00 60 19 99/43 09/17/19 08:55 75 18 77/48 09/17/19 08:50 65 10 L 88/50 09/17/19 08:45 65 21 63/52 09/17/19 08:40 64 6 L 82/61 09/17/19 08:35 75 18 91/47 09/17/19 08:30 64 19 82/46 09/17/19 08:25 69 19 94/49 09/17/19 08:20 68 10 L 91/43 09/17/19 08:15 70 14 74/53 09/17/19 08:10 75 18 84/63 09/17/19 08:05 64 11 L 79/43 09/17/19 08:00 73 62 19 76/38 09/17/19 07:55 69 16 71/49 09/17/19 07:50 99.4 F 61 15 79/47 09/17/19 07:45 75 18 89/60 09/17/19 07:40 64 19 98/49 09/17/19 07:35 92 18 78/42 09/17/19 07:31 64 09/17/19 07:30 75 19 79/48 09/17/19 07:25 61 19 86/58 09/17/19 07:20 64 18 93/61 09/17/19 07:15 92 19 74/47 09/17/19 07:10 65 14 116/67 09/17/19 07:05 65 15 116/89 09/17/19 07:00 91 21 88/47 09/17/19 06:55 60 18 88/51 09/17/19 06:50 60 18 92/57 09/17/19 06:45 53 L 19 84/50 09/17/19 06:40 51 L 19 75/44 09/17/19 06:35 83 18 75/55 09/17/19 06:30 57 L 17 92/46 09/17/19 06:25 60 20 94/43 09/17/19 06:20 60 18 84/50 09/17/19 06:15 67 20 88/37 09/17/19 06:10 64 20 83/55 09/17/19 06:05 87 17 91/54 09/17/19 06:00 87 20 82/48 09/17/19 05:55 65 27 H 83/48 09/17/19 05:50 91 20 79/55 09/17/19 05:45 77 26 H 101/38 09/17/19 05:40 59 L 20 76/53 09/17/19 05:35 59 L 16 91/56 09/17/19 05:30 67 20 89/53 09/17/19 05:25 61 38 H 82/43 09/17/19 05:20 65 21 71/43 09/17/19 05:15 67 26 H 84/49 09/17/19 05:10 64 17 82/47 09/17/19 05:05 73 19 80/39 09/17/19 05:00 65 16 78/42 09/17/19 04:55 62 19 73/41 09/17/19 04:50 61 16 68/39 09/17/19 04:45 66 14 69/43 09/17/19 04:40 72 8 L 64/38 09/17/19 04:35 75 19 82/43 09/17/19 04:30 85 20 67/45 09/17/19 04:25 73 17 93/33 09/17/19 04:20 89 17 57/46 09/17/19 04:15 98.5 F 67 17 67/46 09/17/19 04:10 89 4 L 74/48 09/17/19 04:05 87 12 09/17/19 04:04 79 10 L 09/17/19 03:49 70/41 09/17/19 03:43 62 18 71/46 09/17/19 03:35 58 L 18 71/45 09/17/19 03:30 59 L 18 71/45 09/17/19 03:25 52 L 18 86/48 09/17/19 03:20 69 18 70/44 09/17/19 03:13 58 L 18 70/43 09/17/19 03:03 58 L 18 82/50 09/17/19 03:00 80 62 18 87/49 09/17/19 02:55 60 18 72/51 09/17/19 02:50 58 L 18 74/47 09/17/19 02:45 72 09/17/19 02:40 84 18 85/53 09/17/19 02:29 52 L 18 104/53 09/17/19 02:13 81/48 09/17/19 02:10 97.4 F L 66 18 88/53 09/16/19 23:48 69 18 09/16/19 23:42 97.0 F L 69 18 95/55 09/16/19 20:57 81/48 09/16/19 20:00 97.4 F L 60 18 89/54 80/50 09/16/19 16:53 97.3 F L 49 L 18 103/50 Pulse Ox 09/17/19 09:40 95 09/17/19 09:35 09/17/19 09:30 09/17/19 09:25 95 09/17/19 09:20 94 L 09/17/19 09:15 93 L 09/17/19 09:10 93 L 09/17/19 09:05 94 L 09/17/19 09:00 95 09/17/19 08:55 94 L 09/17/19 08:50 95 09/17/19 08:45 95 09/17/19 08:40 94 L 09/17/19 08:35 95 09/17/19 08:30 95 09/17/19 08:25 95 09/17/19 08:20 94 L 09/17/19 08:15 95 09/17/19 08:10 94 L 09/17/19 08:05 94 L 09/17/19 08:00 95 09/17/19 07:55 95 09/17/19 07:50 09/17/19 07:45 09/17/19 07:40 09/17/19 07:35 09/17/19 07:31 94 L 09/17/19 07:30 09/17/19 07:25 09/17/19 07:20 09/17/19 07:15 09/17/19 07:10 94 L 09/17/19 07:05 09/17/19 07:00 94 L 09/17/19 06:55 93 L 09/17/19 06:50 93 L 09/17/19 06:45 09/17/19 06:40 09/17/19 06:35 93 L 12/01/19 06:30 94 L 09/17/19 06:25 94 L 09/17/19 06:20 93 L 09/17/19 06:15 93 L 09/17/19 06:10 91 L 09/17/19 06:05 09/17/19 06:00 09/17/19 05:55 09/17/19 05:50 95 09/17/19 05:45 09/17/19 05:40 95 09/17/19 05:35 09/17/19 05:30 94 L 09/17/19 05:25 09/17/19 05:20 97 09/17/19 05:15 97 09/17/19 05:10 09/17/19 05:05 97 09/17/19 05:00 09/17/19 04:55 09/17/19 04:50 09/17/19 04:45 09/17/19 04:40 97 09/17/19 04:35 97 09/17/19 04:30 97 09/17/19 04:25 97 09/17/19 04:20 97 09/17/19 04:15 97 09/17/19 04:10 97 09/17/19 04:05 09/17/19 04:04 09/17/19 03:49 09/17/19 03:43 98 09/17/19 03:35 97 09/17/19 03:30 98 09/17/19 03:25 97 09/17/19 03:20 97 09/17/19 03:13 98 09/17/19 03:03 97 09/17/19 03:00 99 09/17/19 02:55 100 09/17/19 02:50 93 L 09/17/19 02:45 95 09/17/19 02:40 98 09/17/19 02:29 95 09/17/19 02:13 09/17/19 02:10 95 09/16/19 23:48 09/16/19 23:42 95 09/16/19 20:57 09/16/19 20:00 93 L 09/16/19 16:53 91 L Intake and Output 09/16/19 09/17/19 09/17/19 22:59 06:59 14:59 Intake Total 120 135.907 137.201 Output Total 155 75 Balance 120 -19.093 62.201 Intake: IV 20 60 0.9 20 60 Intake, IV Titration 115.907 77.201 Amount Norepinephrine 4 mg In 115.907 77.201 Sodium Chloride 0.9% 250 ml @ 0.05 MCG/KG/MIN 15. 907 mls/hr IV .[id number] PERI Rx#:[id number] Oral 120 Output: Urine 155 75 Other: Voiding Method Diaper Indwelling Catheter Indwelling Catheter # Voids 1 # Bowel Movements 2 The patient is in a shock state, cold and clammy lethargic, altered in terms of his mentation, not communicating. He seems to be mild degree of respiratory distress. He has diffuse anasarca with some abdominal distention increased lower extremity edema. Head exam was generally normal. There was no scleral icterus or corneal arcus. Mucous membranes were moist. Neck the patient has a incomplete healing of a tracheostomy site over the anterior neck area. There is no JVDs no goiter or neck masses. Oral mucous membranes are quite dry. Lungs sounds are diminished and the patient has scattered rhonchi heard throughout the lung his bilaterally. Heart sounds are irregular consistent with atrial fibrillation. Sternum stable clean and intact. Faint grade 2/6 soft ejection murmur heard throughout the precordium. Abdomen is distended. There is no direct tenderness. No rebound tenderness. No guarding. There is abdominal wall edema which is extending to the upper thighs and the scrotal area and the patient has scrotal edema. No direct te nderness. No rebound tenderness. No guarding. Extremities revealed +1 edema especially in the upper thighs and edema is lessened lower extremities bilaterally. The patient has chronic contractures of foot drop in lower extremities and currently is awaiting a MediPort. The skin is quite scaly and dry and lower extremities and feet. Neurologically the patient has bilateral feet drop. He withdraws to painful stimulation upper extremities. No facial asymmetry. Pupils are equal and reactive to light. No facial asymmetry. He is encephalopathic and confused and altered. Results - Laboratory Findings CBC and BMP: 09/17/19 04:25 09/17/19 04:25 ABG ABG pH 7.44 (7.35-7.45) 09/17/19 04:22 ABG pCO2 25 mmHg (35-45) L 09/17/19 04:22 ABG pO2 82 mmHg (83-108) L 09/17/19 04:22 ABG O2 Saturation 96.6 % (94-97) 09/17/19 04:22 PT/INR, D-dimer PT 34.7 sec (9.0-12.0) H 09/17/19 04:25 INR 3.6 (<1.2) H 09/17/19 04:25 Abnormal lab findings: Abnormal Labs 09/13/19 09/13/19 09/13/19 11:37 11:37 12:23 RBC 4.29 L Hgb 9.4 L Hct 31.3 L MCV 73.0 L MCH 21.9 L MCHC 30.0 L RDW 19.4 H Neutrophils # (Manual) 8.40 H Lymphocytes # (Manual) 0.82 L PT 15.8 H INR 1.6 H APTT 38.8 H ABG pCO2 ABG pO2 ABG HCO3 ABG Total CO2 Sodium Potassium Chloride Carbon Dioxide BUN Creatinine Glucose POC Glucose (mg/dL) Plasma Lactic Acid Gurpreet 2.1 H* Phosphorus Magnesium Transferrin Total Bilirubin AST Alkaline Phosphatase Ammonia Creatine Kinase Troponin I Total Protein Total Protein (PEP) Albumin Vodqt-5-Mzyzoacqocw Urine Ketones Urine Blood Urine Bilirubin Ur Leukocyte Esterase Urine RBC Urine WBC Urine Bacteria Urine Mucus 09/13/19 09/13/19 09/15/19 12:23 12:50 09:21 RBC Hgb Hct MCV MCH MCHC RDW Neutrophils # (Manual) Lymphocytes # (Manual) PT INR APTT ABG pCO2 ABG pO2 ABG HCO3 ABG Total CO2 Sodium Potassium Chloride 109 H Carbon Dioxide BUN 51 H Creatinine 1.33 H Glucose 100 H POC Glucose (mg/dL) Plasma Lactic Acid Gurpreet Phosphorus Magnesium 2.4 H Transferrin Total Bilirubin 2.1 H AST 103 H Alkaline Phosphatase 274 H Ammonia Creatine Kinase Troponin I Total Protein 5.2 L Total Protein (PEP) Albumin 2.2 L Zuowe-6-Izhajzasoww 278.0 H Urine Ketones Trace H Urine Blood Small H Urine Bilirubin 1+ H Ur Leukocyte Esterase Moderate H Urine RBC 8 H Urine WBC 14 H Urine Bacteria Many H Urine Mucus Moderate H 09/15/19 09/15/19 09/16/19 09:21 09:21 07:41 RBC Hgb Hct MCV MCH MCHC RDW Neutrophils # (Manual) Lymphocytes # (Manual) PT 23.4 H INR 2.4 H APTT ABG pCO2 ABG pO2 ABG HCO3 ABG Total CO2 Sodium 134 L Potassium Chloride Carbon Dioxide 20 L BUN 67 H Creatinine 1.87 H Glucose 113 H POC Glucose (mg/dL) Plasma Lactic Acid Gurpreet Phosphorus Magnesium Transferrin 194.0 L Total Bilirubin 2.0 H AST 127 H Alkaline Phosphatase 267 H Ammonia Creatine Kinase Troponin I Total Protein 4.9 L Total Protein (PEP) 4.5 L Albumin 2.0 L Yanul-9-Hjiaamlcvye Urine Ketones Urine Blood Urine Bilirubin Ur Leukocyte Esterase Urine RBC Urine WBC Urine Bacteria Urine Mucus 09/16/19 09/16/19 09/16/19 07:41 12:09 20:29 RBC Hgb Hct MCV MCH MCHC RDW Neutrophils # (Manual) Lymphocytes # (Manual) PT 27.4 H INR 2.8 H APTT ABG pCO2 ABG pO2 ABG HCO3 ABG Total CO2 Sodium Potassium Chloride Carbon Dioxide BUN Creatinine Glucose POC Glucose (mg/dL) 136 H Plasma Lactic Acid Gurpreet Phosphorus Magnesium Transferrin Total Bilirubin AST Alkaline Phosphatase Ammonia 128 H Creatine Kinase Troponin I Total Protein Total Protein (PEP) Albumin Uxqnn-9-Dkjlyllxjxx Urine Ketones Urine Blood Urine Bilirubin Ur Leukocyte Esterase Urine RBC Urine WBC Urine Bacteria Urine Mucus 09/17/19 09/17/19 09/17/19 04:01 04:22 04:25 RBC Hgb 10.7 L Hct 37.3 L MCV 72.8 L MCH 20.8 L MCHC 28.6 L RDW 20.3 H Neutrophils # (Manual) 8.00 H Lymphocytes # (Manual) 0.44 L PT INR APTT ABG pCO2 25 L ABG pO2 82 L ABG HCO3 17 L ABG Total CO2 18 L Sodium Potassium Chloride Carbon Dioxide BUN Creatinine Glucose POC Glucose (mg/dL) 160 H Plasma Lactic Acid Gurpreet Phosphorus Magnesium Transferrin Total Bilirubin AST Alkaline Phosphatase Ammonia Creatine Kinase Troponin I Total Protein Total Protein (PEP) Albumin Ldark-4-Yoybaiagukp Urine Ketones Urine Blood Urine Bilirubin Ur Leukocyte Esterase Urine RBC Urine WBC Urine Bacteria Urine Mucus 09/17/19 09/17/19 09/17/19 04:25 04:25 04:25 RBC Hgb Hct MCV MCH MCHC RDW Neutrophils # (Manual) Lymphocytes # (Manual) PT INR APTT ABG pCO2 ABG pO2 ABG HCO3 ABG Total CO2 Sodium Potassium 5.3 H Chloride 108 H Carbon Dioxide 19 L BUN 78 H Creatinine 2.58 H Glucose 125 H POC Glucose (mg/dL) Plasma Lactic Acid Gurpreet Phosphorus 4.8 H Magnesium 3.1 H Transferrin Total Bilirubin 2.4 H AST 134 H Alkaline Phosphatase 310 H Ammonia Creatine Kinase 23 L Troponin I 0.046 H* Total Protein 5.3 L Total Protein (PEP) Albumin 2.3 L Piosd-5-Obqbfrqcncp Urine Ketones Urine Blood Urine Bilirubin Ur Leukocyte Esterase Urine RBC Urine WBC Urine Bacteria Urine Mucus 09/17/19 04:25 RBC Hgb Hct MCV MCH MCHC RDW Neutrophils # (Manual) Lymphocytes # (Manual) PT 34.7 H INR 3.6 H APTT ABG pCO2 ABG pO2 ABG HCO3 ABG Total CO2 Sodium Potassium Chloride Carbon Dioxide BUN Creatinine Glucose POC Glucose (mg/dL) Plasma Lactic Acid Gurpreet Phosphorus Magnesium Transferrin Total Bilirubin AST Alkaline Phosphatase Ammonia Creatine Kinase Troponin I Total Protein Total Protein (PEP) Albumin Nbxne-0-Jbjwrrzgtct Urine Ketones Urine Blood Urine Bilirubin Ur Leukocyte Esterase Urine RBC Urine WBC Urine Bacteria Urine Mucus - Diagnostic Findings Chest x-ray: image reviewed Assessment and Plan Plan: 1 hypotension currently under investigation. The patient currently is in a shock state. This is probably a combination of septic/cardiogenic shock. Patient presented with an E. coli UTI and this was an ESBL producing organism and currently is on IV Invanz. Overnight, the patient significant drop in the blood pressure and he was given further diuretics and the patient was brought into the intensive care unit and currently is on norepinephrine infusion running at 0.3 g per KG per minute. Pulses are quite diminished in all 4 extremities. He is cold and clammy. Echocardiogram that was done during this current admission shows severe concentric LVH and this is consistent with diastolic heart failure. The valvular function involving the aortic valve was within normal limits. 2 altered mental status/encephalopathy secondary to above 3 E. coli UTI, recurrent, ESBL producing organism 4 coronary artery disease with previous aortic valve replacement/bioprosthetic aortic valve back in 2017 5 chronic atrial fibrillation with an INR of 3.6 6.Chronic liver disease with signs of hepatic encephalopathy with increased ammonia level and ascites 7 hypoalbuminemia with a albumin level of 2.3 and a total protein of 5.3 8 previous history of a GI bleed related to severe diverticulosis requiring packed RBC transfusion 9 history of hypertension 10 history of hyperlipidemia 11 BPH 12 previous history of sepsis with prolonged ventilator dependent respiratory failure requiring tracheostomy tube insertion and subsequent removal 13 intellectual delay 14 foot drop bilaterally and the patient is wheelchair-bound 15 stage 2-3 wound in the left buttock and left heel. 16 acute kidney injury with a creatinine of 2.58 and diminished urine output. 17 abnormal LFTs 18 minimal troponin leak Plan Obtain 2 sets of blood cultures. Continue IV Invanz. Give the patient 12 albumin 5% to 50 mL and given of also a bolus of liter of normal saline. Stop diuretics for now. Continue pressors. Give the patient 5 of vitamin K in preparation for line insertion. The patient will need a triple lumen catheter and central line insertion for hemodynamic monitoring. We'll check a blood gas. We'll check a lactic acid level. Check a serum cortisol level Keep him nothing by mouth for now. Echo was noted. The Rest of the Abdomen Was Noted. Unfortunately His Condition Is Poor. We'll Try to Resuscitate the Patient This Point in Time. The patient has developed significant bandemia and order of 34%. Given a dose of vancomycin for now pending further cultures. We'll continue to follow. Condition is critical. CODE STATUS needs to be established. High-risk for further hemodynamic collapse and respiratory failure. We'll continue to follow. Family will be informed of these changes. Time with Patient: Greater than 30
[2019-09-17] MEDS ORDERED: ALBUMIN HUMAN 5% 250 ML in EMPTY BAG 1 BAG IVPB ONE ×4 (10:17→18:00)
[2019-09-17] MEDS ORDERED: PHYTONADIONE 5 MG in SODIUM CHLORIDE 0.9% 50 ML IVPB STA (10:24)
[2019-09-17] MEDS ORDERED: VANCOMYCIN IV PER PHARMACY 1 EACH MISC MISCELLANE PRN (10:48)
[2019-09-17] MEDS: SODIUM CHLORIDE 0.9% 1,000 ML IV SCH (11:00)
[2019-09-17] MEDS ORDERED: VANCOMYCIN 1,500 MG in SODIUM CHLORIDE 0.9% 250 ML IVPB ONE (11:15)
[2019-09-17] MEDS ORDERED: SODIUM BICARB 8.4% 50 ML SYR (1 MEQ/ML) IV STA (11:52)
--- NOTE | 2019-09-17 11:54 | P.NPCON ---
History of Present Illness - Reason for Consult acute renal failure, chronic renal failure - History of Present Illness Reason for consultation: Acute kidney injury on chronic kidney disease History of present illness: Patient is a 69-year-old male seen in consultation for acute kidney injury on chronic kidney disease. Patient presented to the hospital with abdominal pain. He's also been treated for UTI. Last night the patient received a total of 100 mg of IV Lasix and subsequently became quite hypotensive. He was subsequently transferred to the intensive care unit. He is currently on 20 mics of Levophed. Patient has chronic kidney disease stage III Baseline creatinine in the range of 1.2-1.4. Creatinine was 1.33 on admission and is up to 2.5 today. Patient is currently receiving a 1 L bolus of normal saline and is maintained on normal saline 150 mL per hour in terms of maintenance fluids. Patient's urine culture is positive for E. coli and he is maintained on broad-spectrum antibiotics. Patient's urine output has been about 10-20 mL an hour. Additionally the patient received IV contrast for CT of the abdomen and pelvis on September 13 which did not reveal any evidence of hydronephrosis. Ascites was noted but wasn't enough for paracentesis. Echocardiogram revealed preserved ejection fraction. Patient's currently resting in bed. He is quite lethargic. He is not a reliable historian. Vital signs are stable. Currently on 20 mics of Levophed. General: The patient appeared well nourished and normally developed. HEENT: Head exam is unremarkable. Neck is without jugular venous distension. LUNGS: Breath sounds decreased. HEART: Rate and Rhythm are regular. First and second heart sounds normal. No murmurs, rubs or gallops. ABDOMEN: Abdominal exam reveals normal bowel sounds. Distention noted. EXTREMITITES: 1+ edema. Past Medical History Past Medical History: Atrial Fibrillation, GERD/Reflux, Hypertension Additional Past Medical History / Comment(s): Coronary artery disease, previous bypass surgery, history of chronic atrial fibrillation, hypertension, history of psychiatric disorder and intellectual delay, hyperlipidemia, acid reflux, previous history of aortic valve replacement, bioprosthetic valve, previous history of ESBL producing E. coli urinary tract infection, previous history of GI bleed, severe diverticulosis, bilateral drop feet, wheelchair-bound, previous history of tracheostomy for prolonged vent dependent respiratory failure. History of Any Multi-Drug Resistant Organisms: ESBL Date of last positivie culture/infection: 09/28/16 MDRO Source:: BLOOD E.COLI Past Surgical History: Unable to Obtain Additional Past Surgical History / Comment(s): Previous Tracheostomy, Porcine Valve, PEG tube with removal Past Anesthesia/Blood Transfusion Reactions: No Reported Reaction Past Psychological History: Unable to Obtain Smoking Status: Former smoker Past Alcohol Use History: Unable to Obtain Past Drug Use History: Unable to Obtain - Past Family History Father History Unknown: Yes Family Medical History: Unable to Obtain Mother History Unknown: Yes Family Medical History: Unable to Obtain Medications and Allergies Home Medications Medication Instructions Recorded Confirmed Type Amiodarone [Cordarone] 200 mg PO DAILY 09/28/16 09/13/19 History Melatonin 10 mg PO HS 09/28/16 09/13/19 History Metoprolol Tartrate [Lopressor] 12.5 mg PO BID 09/28/16 09/13/19 History Tamsulosin HCl [Flomax] 0.4 mg PO DAILY 09/28/16 09/13/19 History HYDROcodone/APAP 7.5-325MG [[place] 1 tab PO Q6H PRN 01/25/17 09/13/19 History 7.5-325] LORazepam [Ativan] 1 mg PO Q8H PRN 01/25/17 09/13/19 History Magnesium Oxide [Mag-Ox] 400 mg PO BID 01/25/17 09/13/19 History Warfarin [Coumadin] 2 mg PO SUMOWETHFRSA 01/25/17 09/13/19 History Sennosides [Senna] 17.2 mg PO HS 06/24/19 09/13/19 History Sertraline [Zoloft] 100 mg PO DAILY 06/24/19 09/13/19 History Ursodiol 300 mg PO BID 06/24/19 09/13/19 History risperiDONE 3 mg PO BID 06/24/19 09/13/19 History Omeprazole [PriLOSEC] 20 mg PO AC-BRKFST #30 cap 06/27/19 09/13/19 Rx Cephalexin [Keflex] 500 mg PO Q12HR 09/13/19 09/13/19 History Allergies Allergy/AdvReac Type Severity Reaction Status Date / Time No Known Allergies Allergy Verified 09/13/19 15:14 Physical Exam Vitals: Vital Signs Temp Pulse Pulse Resp BP BP BP 09/17/19 11:30 61 19 110/49 09/17/19 11:23 68 09/17/19 11:15 96 21 104/48 09/17/19 11:13 60 09/17/19 11:00 61 24 69/34 09/17/19 10:45 62 16 91/57 09/17/19 10:30 93 12 95/55 09/17/19 10:15 63 12 93/42 09/17/19 10:00 71 13 96/48 09/17/19 09:45 73 21 87/55 09/17/19 09:40 62 18 87/55 09/17/19 09:35 82 24 93/50 09/17/19 09:30 65 19 78/48 09/17/19 09:25 65 17 93/53 09/17/19 09:20 64 18 71/36 09/17/19 09:15 67 20 71/45 09/17/19 09:10 78 18 74/37 09/17/19 09:05 72 18 80/56 09/17/19 09:00 60 19 99/43 09/17/19 08:55 75 18 77/48 09/17/19 08:50 65 10 L 88/50 09/17/19 08:45 65 21 63/52 09/17/19 08:40 64 6 L 82/61 09/17/19 08:35 75 18 91/47 09/17/19 08:30 64 19 82/46 09/17/19 08:25 69 19 94/49 09/17/19 08:20 68 10 L 91/43 09/17/19 08:15 70 14 74/53 09/17/19 08:10 75 18 84/63 09/17/19 08:05 64 11 L 79/43 09/17/19 08:00 73 62 19 76/38 09/17/19 07:55 69 16 71/49 09/17/19 07:50 99.4 F 61 15 79/47 09/17/19 07:45 75 18 89/60 09/17/19 07:40 64 19 98/49 09/17/19 07:35 92 18 78/42 09/17/19 07:31 64 09/17/19 07:30 75 19 79/48 09/17/19 07:25 61 19 86/58 09/17/19 07:20 64 18 93/61 09/17/19 07:15 92 19 74/47 09/17/19 07:10 65 14 116/67 09/17/19 07:05 65 15 116/89 09/17/19 07:00 91 21 88/47 09/17/19 06:55 60 18 88/51 09/17/19 06:50 60 18 92/57 09/17/19 06:45 53 L 19 84/50 09/17/19 06:40 51 L 19 75/44 09/17/19 06:35 83 18 75/55 09/17/19 06:30 57 L 17 92/46 09/17/19 06:25 60 20 94/43 09/17/19 06:20 60 18 84/50 09/17/19 06:15 67 20 88/37 09/17/19 06:10 64 20 83/55 09/17/19 06:05 87 17 91/54 09/17/19 06:00 87 20 82/48 09/17/19 05:55 65 27 H 83/48 09/17/19 05:50 91 20 79/55 09/17/19 05:45 77 26 H 101/38 09/17/19 05:40 59 L 20 76/53 09/17/19 05:35 59 L 16 91/56 09/17/19 05:30 67 20 89/53 09/17/19 05:25 61 38 H 82/43 09/17/19 05:20 65 21 71/43 09/17/19 05:15 67 26 H 84/49 09/17/19 05:10 64 17 82/47 09/17/19 05:05 73 19 80/39 09/17/19 05:00 65 16 78/42 09/17/19 04:55 62 19 73/41 09/17/19 04:50 61 16 68/39 09/17/19 04:45 66 14 69/43 09/17/19 04:40 72 8 L 64/38 09/17/19 04:35 75 19 82/43 09/17/19 04:30 85 20 67/45 09/17/19 04:25 73 17 93/33 09/17/19 04:20 89 17 57/46 09/17/19 04:15 98.5 F 67 17 67/46 09/17/19 04:10 89 4 L 74/48 09/17/19 04:05 87 12 09/17/19 04:04 79 10 L 09/17/19 03:49 70/41 09/17/19 03:43 62 18 71/46 09/17/19 03:35 58 L 18 71/45 09/17/19 03:30 59 L 18 71/45 09/17/19 03:25 52 L 18 86/48 09/17/19 03:20 69 18 70/44 09/17/19 03:13 58 L 18 70/43 09/17/19 03:03 58 L 18 82/50 09/17/19 03:00 80 62 18 87/49 09/17/19 02:55 60 18 72/51 09/17/19 02:50 58 L 18 74/47 09/17/19 02:45 72 09/17/19 02:40 84 18 85/53 09/17/19 02:29 52 L 18 104/53 09/17/19 02:13 81/48 09/17/19 02:10 97.4 F L 66 18 88/53 09/16/19 23:48 69 18 09/16/19 23:42 97.0 F L 69 18 95/55 09/16/19 20:57 81/48 09/16/19 20:00 97.4 F L 60 18 89/54 80/50 09/16/19 16:53 97.3 F L 49 L 18 103/50 Pulse Ox 09/17/19 11:30 96 09/17/19 11:23 09/17/19 11:15 98 09/17/19 11:13 09/17/19 11:00 97 09/17/19 10:45 98 09/17/19 10:30 97 09/17/19 10:15 97 09/17/19 10:00 97 09/17/19 09:45 95 09/17/19 09:40 95 09/17/19 09:35 09/17/19 09:30 09/17/19 09:25 95 09/17/19 09:20 94 L 09/17/19 09:15 93 L 09/17/19 09:10 93 L 09/17/19 09:05 94 L 09/17/19 09:00 95 09/17/19 08:55 94 L 09/17/19 08:50 95 09/17/19 08:45 95 09/17/19 08:40 94 L 09/17/19 08:35 95 09/17/19 08:30 95 09/17/19 08:25 95 09/17/19 08:20 94 L 09/17/19 08:15 95 09/17/19 08:10 94 L 09/17/19 08:05 94 L 09/17/19 08:00 95 09/17/19 07:55 95 09/17/19 07:50 09/17/19 07:45 09/17/19 07:40 09/17/19 07:35 09/17/19 07:31 94 L 09/17/19 07:30 09/17/19 07:25 09/17/19 07:20 09/17/19 07:15 09/17/19 07:10 94 L 09/17/19 07:05 09/17/19 07:00 94 L 09/17/19 06:55 93 L 09/17/19 06:50 93 L 09/17/19 06:45 09/17/19 06:40 09/17/19 06:35 93 L 09/17/19 06:30 94 L 09/17/19 06:25 94 L 09/17/19 06:20 93 L 09/17/19 06:15 93 L 09/17/19 06:10 91 L 09/17/19 06:05 09/17/19 06:00 09/17/19 05:55 09/17/19 05:50 95 09/17/19 05:45 09/17/19 05:40 95 09/17/19 05:35 09/17/19 05:30 94 L 09/17/19 05:25 09/17/19 05:20 97 09/17/19 05:15 97 09/17/19 05:10 09/17/19 05:05 97 09/17/19 05:00 09/17/19 04:55 09/17/19 04:50 09/17/19 04:45 09/17/19 04:40 97 09/17/19 04:35 97 09/17/19 04:30 97 09/17/19 04:25 97 09/17/19 04:20 97 09/17/19 04:15 97 09/17/19 04:10 97 09/17/19 04:05 09/17/19 04:04 09/17/19 03:49 09/17/19 03:43 98 09/17/19 03:35 97 09/17/19 03:30 98 09/17/19 03:25 97 09/17/19 03:20 97 09/17/19 03:13 98 09/17/19 03:03 97 09/17/19 03:00 99 09/17/19 02:55 100 09/17/19 02:50 93 L 09/17/19 02:45 95 09/17/19 02:40 98 09/17/19 02:29 95 09/17/19 02:13 09/17/19 02:10 95 09/16/19 23:48 09/16/19 23:42 95 09/16/19 20:57 09/16/19 20:00 93 L 09/16/19 16:53 91 L Intake and Output 09/16/19 09/17/19 09/17/19 22:59 06:59 14:59 Intake Total 120 619.970 7413.093 Output Total 155 195 Balance 120 -19.093 1753.093 Intake: IV 20 1560 0.9 20 1060 Albumin Human 5% 250 ml 250 In Empty Bag 1 bag @ 250 mls/hr IVPB ONCE ONE Rx#: [id number] Albumin Human 5% 250 ml 250 In Empty Bag 1 bag @ 250 mls/hr IVPB ONCE ONE Rx#: [id number] Intake, IV Titration 115.907 388.093 Amount Albumin Human 5% 250 ml 250 In Empty Bag 1 bag @ 250 mls/hr IVPB ONCE ONE Rx#: [id number] Norepinephrine 4 mg In 115.907 138.093 Sodium Chloride 0.9% 250 ml @ 0.05 MCG/KG/MIN 15. 907 mls/hr IV .[id number] [facility] Rx#:[id number] Oral 120 Output: Urine 155 195 Other: Voiding Method Diaper Indwelling Catheter Indwelling Catheter # Voids 1 # Bowel Movements 2 Results - Lab Results Most recent lab results ABG pH 7.44 (7.35-7.45) 09/17/19 04:22 ABG pCO2 25 mmHg (35-45) L 09/17/19 04:22 ABG pO2 82 mmHg (83-108) L 09/17/19 04:22 ABG HCO3 17 mmol/L (21-25) L 09/17/19 04:22 ABG O2 Saturation 96.6 % (94-97) 09/17/19 04:22 Calcium 9.0 mg/dL (8.4-10.2) 09/17/19 04:25 Phosphorus 4.8 mg/dL (2.5-4.5) H 09/17/19 04:25 Magnesium 3.1 mg/dL (1.6-2.3) H 09/17/19 04:25 09/17/19 04:25 09/17/19 04:25 Assessment and Plan Plan: Assessment: 1. Acute kidney injury secondary to ATN secondary to septic shock and contrast- induced nephropathy. Creatinine up to 2.5 today. No evidence of hydronephrosis noted on CAT scan. No proteinuria on UA. 2. Chronic kidney disease stage III with baseline creatinine in the range of 1.2-1.4. Patient has not been seen in our office outpatient. 3. Elevated liver enzymes. Cause unclear. GI following. May need MRCP down the road. 4. Metabolic acidosis secondary to acute kidney injury and IV fluids. 5. E. coli UTI maintained on antibiotics. 6. Generalized edema secondary to hypoalbuminemia. Plan: I will decrease the rate of normal saline to 75 mL an hour. 25 g of IV albumin 2 doses today. Wean vasopressors. Avoid nephrotoxins. Discontinue Motrin and Toradol. Continue to monitor renal function and urine output. Continue to assess on daily basis for need for renal replacement therapy. Thank you for the consultation. I will continue to follow the patient with you during his hospital stay.
[2019-09-17] MEDS: risperiDONE 2 MG TAB PO SCH (11:55)
[2019-09-17] MEDS: TAMSULOSIN 0.4 MG CAP.ER.24H PO SCH (11:56)
[2019-09-17] MEDS: URSODIOL 300 MG CAP PO SCH (11:56)
[2019-09-17] MEDS: ERTAPENEM 1 GM in SODIUM CHLORIDE 0.9% 50 ML IVPB SCH (11:59)
[2019-09-17] MEDS ORDERED: SODIUM BICARB 8.4% 50 ML SYR (1 MEQ/ML) ONE (12:20)
[2019-09-17 12:38] LABS: ABG Base Excess -3.2 mmol/L; ABG HCO3 20 mmol/L (21-25); ABG Oxygen Saturation 96.6 % (94-97); ABG PCO2 27 mmHg (35-45); ABG PH 7.49 (7.35-7.45); ABG PO2 81 mmHg (83-108); ABG TCO2 21 mmol/L (19-24); Allen Test Performed? Yes
[2019-09-17 13:57] LABS: INR 4.5 (<1.2); Prothrombin Time 43.4 sec (9.0-12.0)
--- NOTE | 2019-09-17 15:04 | XR ---
EXAMINATION TYPE: XR chest 1V portable DATE OF EXAM: 09/17/2019 COMPARISON: Today HISTORY: Check line placement TECHNIQUE: Single frontal view of the chest is obtained. FINDINGS: There is a left jugular catheter with the tip in the superior vena cava. There is cardiac valve surgery. There is pulmonary interstitial edema. Heart is probably enlarged. There are chest le ads. IMPRESSION: Catheter in good position. Pulmonary edema is the same or slightly worse than exam earli er this morning.
--- NOTE | 2019-09-17 18:30 | PN ---
PROGRESS NOTE This is a 69-year-old gentleman who has history of CAD status post CABG, status post aortic valve replacement, atrial fibrillation, on long-term Coumadin, who was on the floor, became short of breath last night. Received multiple doses of Lasix following which his condition has deteriorated and he has since been admitted to ICU. His renal functions have worsened. He has lactic acidosis. Troponins are mildly elevated probably secondary to renal failure. EXAM: Patient's heart rate is 60 beats per minute. Blood pressure is 140/50, respiratory rate is 18. Chest exam reveals diminished air entry bilaterally. Heart exam reveals first and second heart sounds and an ejection systolic murmur in the aortic area. Abdomen is soft. Exam of the extremities reveals evidence of prior toe amputation and diminished pulses with mild edema. LAB: Show a BUN of 78, creatinine of 2.5. Potassium is 5.3. ASSESSMENT: 1. Hypotension. The patient is on Levophed now. 2. Sepsis on IV antibiotics. 3. Coronary artery disease, status post coronary artery bypass grafting. 4. Paroxysmal atrial fib. 5. History of atrial fibrillation. 6. Acute worsening of chronic renal failure. Continue with the IV antibiotics, pressors and supportive care. MMODL / IJN: [id number] /
--- NOTE | 2019-09-17 18:53 | P.PN ---
Progress Note - Text Progress Note Date: 09/17/19 Chief Complaint: Weakness, abdominal pain Interval history: This is a 69-year-old patient of visiting physician Dr. Kelly. Chronic stable medical conditions include coronary artery disease with MT in 2017, persistent atrial flutter, BPH, chronic kidney disease stage III, hypertension, GERD, bilateral foot drop with contracture, severe left-sided diverticulosis, chronic intellectual delay. Patient lives with his brother, Samson was also DPOA.. Uses a wheelchair to get about. History is obtained by the brother. At the bedside.Patient is at abdominal pain on and off for about 2 weeks. Describes it on the left side right-sided upper abdominal. Seems to wax and wane. No change in bowel pattern. Patient was seen by the family doctor Dr. Kelly who did prescribe antibiotics about 2 weeks ago. And antibiotics were changed. Patient has been feeling more weak. Tired. Decreased appetite. There is no shortness of breath no cough no fever. Some nausea still present. No vomiting. Admitted with UTI and cystitis, sacral decubitus ulcer. And chest pain. No further workup per cardiology.Abdominal ultrasound negative for portal vein thrombosis. Minimal ascites. Patient developed hepatic encephalopathy with elevated ammonia. Lactulose was started. Today-yesterday, patient became fluid overloaded, as per checks x-ray and crackles in the lungs. 2 doses of IV Lasix were given. Also patient is felt to have hepatic encephalopathy. Ammonia level is elevated. Started on lactulose. Patient is started having bowel movements. Later patient became hypotensive. Still having some crackles in the lungs. I move the patient to the ICU. Patient is currently on levo fed drip. Tired. Review of systems: Was done for constitutional, cardiovascular, GI, pulmonary. relevant finding as above Active Medications Albuterol/Ipratropium (Duoneb 0.5 Mg-3 Mg/3 Ml Soln) 3 ml INHALATION RT-Q2H PRN PRN Reason: Shortness Of Breath Or Wheezing Last Admin: 09/17/19 14:55 Dose: 3 ml Documented by: Atorvastatin Calcium (Lipitor) 5 mg PO HS PERI Last Admin: 09/16/19 20:45 Dose: 5 mg Documented by: Norepinephrine Bitartrate 4 mg (/ Sodium Chloride) 254 mls @ 15.907 mls/hr IV .[id number] PERI; Protocol Last Titration: 09/17/19 18:22 Dose: 0.27 mcg/kg/min, 85.896 mls/hr Documented by: Albumin Human 250 ml/ IV (Solution) 250 mls @ 250 mls/hr IVPB ONCE ONE Stop: 09/17/19 18:59 Last Admin: 09/17/19 18:24 Dose: 250 mls/hr Documented by: Sodium Chloride (Saline 0.9%) 1,000 mls @ 75 mls/hr IV .[id number] PERI Last Admin: 09/17/19 11:00 Dose: 75 mls/hr Documented by: Ertapenem 0.5 gm/ Sodium (Chloride) 50 mls @ 100 mls/hr IVPB DAILY PERI; Protocol Norepinephrine Bitartrate 32 (mg/ Sodium Chloride) 250 mls @ 11.351 mls/hr IV .Q22H2M PERI; Protocol Lactulose (Cephulac) 20 gm PO TID PERI Last Admin: 09/16/19 20:46 Dose: 20 gm Documented by: Naloxone HCl (Narcan) 0.2 mg IV Q2M PRN PRN Reason: Opioid Reversal Ondansetron HCl (Zofran) 4 mg IVP Q8HR PRN PRN Reason: Nausea And Vomiting Last Admin: 09/14/19 21:21 Dose: 4 mg Documented by: Physical examination: VITAL SIGNS: 98.6, 88, 14, 89 x 52, 96% on 4 L GENERAL: Laying in bed, tired EYES: Pupils equal. Conjunctiva pale. HEENT: Tracheostomy stoma NECK: JVD not raised; masses not palpable. HEART: First and second heart sounds are normal; no edema. LUNGS: Respiratory rate increased, decreased breaths on. ABDOMEN: Soft, minimal tenderness, no guarding or rigidity, liver spleen not palpable, no masses palpable., DERMATOLOGICAL: Stage 3 sacral decubitus ulcer PSYCH: Able to answer simple questionsl. EXTREMITIES: Bilateral foot drop with evidence of chronic ischemia in both the feet INVESTIGATIONS, reviewed in the clinical context: White count 8.8 hemoglobin 10.7 platelets 218 INR 3.6 potassium 5.3 creatinine 2.58, ammonia 28 Previous testing White count 10.2 hemoglobin 9.4 progression 4.9 bun 51 creatinine 1.53 UA positive for leukoesterase WPC occult stool-negative EKG tracing personally reviewed by me-sinus rhythm with LVH pattern Chest x-ray film personally reviewed by me-some elevation of right diaphragm CT [id number]-moderate ascites, bilateral renal cyst, diverticulosis, bilateral inguinal hernia, cholelithiasis, splenomegaly, small bilateral pleural fluid EGD-colonoscopy done in June 2019 showed gastritis and diverticulosis. Abdomen-PORTAL VEIN FLOW PRESENT Hepatitis screen negative. 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 Ferritin 51. JOSUE screen negative. Assessment: --Hepatocellular disease with evidence of portal hypertension including splenomegaly -Hypotensive shock, a combination of volume loss from diarrhea, possibly infection., Requiring pressor support -Hepatic encephalopathy. On lactulose. -Acute UTI with cystitis having failed outpatient treatment -Stage III sacral decubitus ulcer -Paroxysmal atrial flutter fibrillation, currently in sinus rhythm on Coumadin -Moderate severity left-sided diverticulosis -Coronary artery disease with prior MT in 2017 /bypass -BPH -Chronic kidney disease stage III from nephrosclerosis -Essential hypertension -GERD -Bilateral foot drop with contractures, chronic -Chronic intellectual delay -Coumadin monitoring -Acute kidney injury a combination of prerenal and ATN, possibly from cardiorenal syndrome from hypotension -Patient's brother is a POA Plan: Patient is in the ICU. On levo fed drip. Central line is being placed. He received vitamin K. Prognosis guarded. Discussed and Dr. Yoo. Patient also getting IV fluids. Prognosis guarded.
[2019-09-17] MEDS: NOREPINEPHRINE 32 MG in SODIUM CHLORIDE 0.9% 218 ML IV SCH (19:23)
--- NOTE | 2019-09-17 19:35 | P.PN ---
Subjective Progress Note Date: 09/17/19 Principal diagnosis: Elevated liver enzymes, chronic anemia Patient is seen lying in bed, he was transferred to the intensive care unit due to initial concerns over fluid overload and then subsequent hypotension for which she is currently on pressor support. Objective - Vital Signs Vital signs: Vital Signs Temp 99.4 F 09/17/19 07:50 Pulse 65 09/17/19 08:50 Resp 10 L 09/17/19 08:50 BP 88/50 09/17/19 08:50 Pulse Ox 95 09/17/19 08:50 Intake & Output 09/16/19 09/17/19 09/17/19 18:59 06:59 18:59 Intake Total 480 255.907 117.201 Output Total 155 55 Balance 480 100.907 62.201 Intake: IV 20 40 0.9 20 40 Intake, IV Titration 115.907 77.201 Amount Norepinephrine 4 mg In 115.907 77.201 Sodium Chloride 0.9% 250 ml @ 0.05 MCG/KG/MIN 15. 907 mls/hr IV .[id number] [facility] Rx#:[id number] Oral 480 120 Output: Urine 155 55 Other: Voiding Method Diaper Indwelling Catheter Indwelling Catheter # Voids 1 1 # Bowel Movements 2 - Exam On physical examination, patient appears comfortable in no apparent distress. HEAD: Normocephalic, atraumatic. EYES: No scleral icterus. No conjunctival injection. MOUTH: No lesions, tongue midline. NECK: Trachea midline with previous tracheostomy site is intact, no gross abnormalities. CHEST: No respiratory distress. ABDOMEN: Soft, obese. Bowel sounds are positive. No organomegaly. No guarding or rigidity. EXTREMITIES: No pedal edema. SKIN: No rashes, no jaundice. NEUROLOGIC: Alert and interactive. - Labs CBC & Chem 7: 09/17/19 04:25 09/17/19 04:25 Labs: Abnormal Lab Results - Last 24 Hours (Table) 09/15/19 09/15/19 09/16/19 Range/Units 09:21 09:21 07:41 Hgb (13.0-17.5) gm/dL Hct (39.0-53.0) % MCV (80.0-100.0) fL MCH (25.0-35.0) pg MCHC (31.0-37.0) g/dL RDW (11.5-15.5) % Neutrophils # (Manual) (1.3-7.7) k/uL Lymphocytes # (Manual) (1.0-4.8) k/uL PT (9.0-12.0) sec INR (<1.2) ABG pCO2 (35-45) mmHg ABG pO2 (83-108) mmHg ABG HCO3 (21-25) mmol/L ABG Total CO2 (19-24) mmol/L Sodium 134 L (137-145) mmol/L Potassium (3.5-5.1) mmol/L Chloride (98-107) mmol/L Carbon Dioxide 20 L (22-30) mmol/L BUN 67 H (9-20) mg/dL Creatinine 1.87 H (0.66-1.25) mg/dL Glucose 113 H (74-99) mg/dL POC Glucose (mg/dL) (75-99) mg/dL Phosphorus (2.5-4.5) mg/dL Magnesium (1.6-2.3) mg/dL Transferrin 194.0 L (204.0-354.0) mg/dL Total Bilirubin 2.0 H (0.2-1.3) mg/dL AST 127 H (17-59) U/L Alkaline Phosphatase 267 H (38-126) U/L Ammonia (<30) umol/L Creatine Kinase (55-170) U/L Troponin I (0.000-0.034) ng/mL Total Protein 4.9 L (6.3-8.2) g/dL Albumin 2.0 L (3.5-5.0) g/dL Ddcuz-0-Sljqevtzivf 278.0 H (99.0-242.0) mg/dL 09/16/19 09/16/19 09/17/19 Range/Units 12:09 20:29 04:01 Hgb (13.0-17.5) gm/dL Hct (39.0-53.0) % MCV (80.0-100.0) fL MCH (25.0-35.0) pg MCHC (31.0-37.0) g/dL RDW (11.5-15.5) % Neutrophils # (Manual) (1.3-7.7) k/uL Lymphocytes # (Manual) (1.0-4.8) k/uL PT (9.0-12.0) sec INR (<1.2) ABG pCO2 (35-45) mmHg ABG pO2 (83-108) mmHg ABG HCO3 (21-25) mmol/L ABG Total CO2 (19-24) mmol/L Sodium (137-145) mmol/L Potassium (3.5-5.1) mmol/L Chloride (98-107) mmol/L Carbon Dioxide (22-30) mmol/L BUN (9-20) mg/dL Creatinine (0.66-1.25) mg/dL Glucose (74-99) mg/dL POC Glucose (mg/dL) 136 H 160 H (75-99) mg/dL Phosphorus (2.5-4.5) mg/dL Magnesium (1.6-2.3) mg/dL Transferrin (204.0-354.0) mg/dL Total Bilirubin (0.2-1.3) mg/dL AST (17-59) U/L Alkaline Phosphatase (38-126) U/L Ammonia 128 H (<30) umol/L Creatine Kinase (55-170) U/L Troponin I (0.000-0.034) ng/mL Total Protein (6.3-8.2) g/dL Albumin (3.5-5.0) g/dL Cggrz-1-Mztbkkvyszg (99.0-242.0) mg/dL 09/17/19 09/17/19 09/17/19 Range/Units 04:22 04:25 04:25 Hgb 10.7 L (13.0-17.5) gm/dL Hct 37.3 L (39.0-53.0) % MCV 72.8 L (80.0-100.0) fL MCH 20.8 L (25.0-35.0) pg MCHC 28.6 L (31.0-37.0) g/dL RDW 20.3 H (11.5-15.5) % Neutrophils # (Manual) 8.00 H (1.3-7.7) k/uL Lymphocytes # (Manual) 0.44 L (1.0-4.8) k/uL PT (9.0-12.0) sec INR (<1.2) ABG pCO2 25 L (35-45) mmHg ABG pO2 82 L (83-108) mmHg ABG HCO3 17 L (21-25) mmol/L ABG Total CO2 18 L (19-24) mmol/L Sodium (137-145) mmol/L Potassium 5.3 H (3.5-5.1) mmol/L Chloride 108 H (98-107) mmol/L Carbon Dioxide 19 L (22-30) mmol/L BUN 78 H (9-20) mg/dL Creatinine 2.58 H (0.66-1.25) mg/dL Glucose 125 H (74-99) mg/dL POC Glucose (mg/dL) (75-99) mg/dL Phosphorus 4.8 H (2.5-4.5) mg/dL Magnesium 3.1 H (1.6-2.3) mg/dL Transferrin (204.0-354.0) mg/dL Total Bilirubin 2.4 H (0.2-1.3) mg/dL AST 134 H (17-59) U/L Alkaline Phosphatase 310 H (38-126) U/L Ammonia (<30) umol/L Creatine Kinase (55-170) U/L Troponin I (0.000-0.034) ng/mL Total Protein 5.3 L (6.3-8.2) g/dL Albumin 2.3 L (3.5-5.0) g/dL Qlvan-5-Ditxcipslmg (99.0-242.0) mg/dL 09/17/19 09/17/19 09/17/19 Range/Units 04:25 04:25 04:25 Hgb (13.0-17.5) gm/dL Hct (39.0-53.0) % MCV (80.0-100.0) fL MCH (25.0-35.0) pg MCHC (31.0-37.0) g/dL RDW (11.5-15.5) % Neutrophils # (Manual) (1.3-7.7) k/uL Lymphocytes # (Manual) (1.0-4.8) k/uL PT 34.7 H (9.0-12.0) sec INR 3.6 H (<1.2) ABG pCO2 (35-45) mmHg ABG pO2 (83-108) mmHg ABG HCO3 (21-25) mmol/L ABG Total CO2 (19-24) mmol/L Sodium (137-145) mmol/L Potassium (3.5-5.1) mmol/L Chloride (98-107) mmol/L Carbon Dioxide (22-30) mmol/L BUN (9-20) mg/dL Creatinine (0.66-1.25) mg/dL Glucose (74-99) mg/dL POC Glucose (mg/dL) (75-99) mg/dL Phosphorus (2.5-4.5) mg/dL Magnesium (1.6-2.3) mg/dL Transferrin (204.0-354.0) mg/dL Total Bilirubin (0.2-1.3) mg/dL AST (17-59) U/L Alkaline Phosphatase (38-126) U/L Ammonia (<30) umol/L Creatine Kinase 23 L (55-170) U/L Troponin I 0.046 H* (0.000-0.034) ng/mL Total Protein (6.3-8.2) g/dL Albumin (3.5-5.0) g/dL Uubht-0-Hffvwxgyekp (99.0-242.0) mg/dL Microbiology - Last 24 Hours (Table) 09/13/19 12:00 Blood Culture - Preliminary Blood No Growth after 72 hours 09/13/19 12:50 Urine Culture - Final Urine,Voided Escherichia coli Assessment and Plan (1) Elevated liver enzymes Narrative/Plan: 69-year-old male with multiple medical comorbidities who presented due to weakness and abdominal pain. Computed tomography scan of the abdomen with multiple findings including cholelithiasis and ascites. This was evaluated further with ultrasound of the abdomen however there were appeared only to be minimal ascites and not enough for paracentesis. Unclear etiology of elevated liver enzymes as the patient was recently started on antibiotic therapy with Keflex and is also on chronic therapy with amiodarone. Will order full liver serologies to rule out intrinsic liver disease however on last admission patient's liver enzymes were found to be normal, which has been negative to date. There was no evidence of biliary pathology on ultrasound of the abdomen however study was somewhat limited by bowel gas pattern and if patient is able to tolerate further evaluation with MRCP this would be beneficial to rule out choledocholithiasis, however suspicion at this time is for elevation in liver enzymes secondary to underlying sepsis as patient is currently on broad-spectrum antibiotic therapy due to underlying UTI and associated hypoperfusion. Current Visit: Yes Status: Acute Code(s): R74.8 - ABNORMAL LEVELS OF OTHER SERUM ENZYMES SNOMED Code(s): 156860120 (2) Chronic anemia Narrative/Plan: Previously evaluated with EGD and colonoscopy in 06/2019 significant only for gastritis, polypectomy and extensive diverticulosis. Patient's hemoglobin currently stable at baseline. Likely multifactorial and due to anemia of chronic disease and underlying kidney disease. Current Visit: Yes Status: Acute Code(s): D64.9 - ANEMIA, UNSPECIFIED SNOMED Code(s): 748452434 (3) Abdominal pain Current Visit: Yes Status: Acute Code(s): R10.9 - UNSPECIFIED ABDOMINAL PAIN SNOMED Code(s): 97775356 (4) Ascites Narrative/Plan: Ultrasound abdomen performed that did not show enough ascites for paracentesis. Current Visit: Yes Status: Acute Code(s): R18.8 - OTHER ASCITES SNOMED Code(s): 479497912 Plan: Supportive care Okay for diet Continue to monitor hemoglobin and transfuse as needed Continue to monitor CMP Full liver serologies ordered and has been negative to date Ultrasound abdomen ordered and reviewed, insufficient fluid for paracentesis at this time, however patient may be able to have fluid removed in order for fluid studies and to confirm etiology of ascites MRCP recommended if patient is able to tolerate to rule out choledocholithiasis/biliary pathology as source of pain Patient is on Actigall which was started in the outpatient setting due to ga llstones Thank you for allowing us to participate in the care of your patient, we will continue to follow
[2019-09-17] MEDS: LACTULOSE 20 GM/30 ML CUP PO SCH ×3 (19:50→22:48)
[2019-09-17] MEDS: ATORVASTATIN 10 MG TAB PO SCH (22:45)
[2019-09-18] MEDS: SODIUM CHLORIDE 0.9% 1,000 ML IV SCH ×2 (00:56→16:42)
--- NOTE | 2019-09-18 02:20 | PN ---
PROGRESS NOTE DATE OF SERVICE: 09/17/2019. REASON FOR FOLLOWUP: ESBL E coli urinary tract infection. INTERVAL HISTORY: The patient has been transferred down to the ICU. Apparently the patient noticed to be hypertensive after he received some Lasix for worsening chest x-ray finding. The patient currently remains to be afebrile though denies any headache or chest pain. Occasional cough. No nausea, vomiting. No abdominal pain. No diarrhea. PHYSICAL EXAMINATION: Blood pressure is 138/47 with a pulse of 93, temperature 98. He is 96% on 4 L nasal cannula. General description is an elderly male lying in bed in no distress. Respiratory system: Unlabored breathing with decreased breath sounds in the bases. No wheeze. Heart S1, S2. Regular rate and rhythm. Abdomen soft, no tenderness. Extremities: No edema of the feet. LABS: Hemoglobin is 10.7, white count 8.8. Lactic acid 2.2. Creatinine is 2.58. with ESBL E coli. Blood culture has been negative. Chest x-ray today edema slightly worse. DIAGNOSTIC IMPRESSION AND PLAN: Patient admitted to the hospital with generalized weakness, urinary tract infection failing outpatient Keflex therapy, now with urine culture showing ESBL E coli. The patient is improving on Invanz. We will continue to monitor his clinical course closely. Continue supportive care. MMODL / IJN: [id number] /
--- NOTE | 2019-09-18 02:26 | PCN ---
PROCEDURE NOTE PREOP DIAGNOSIS: Hypotension/sepsis. POSTOP DIAGNOSIS: Hypotension/sepsis. PROCEDURE PERFORMED: Insertion of triple-lumen catheter. TRIPLE LUMEN CATHETER PLACEMENT: Indication Hemodynamic monitoring/Intravenous access. A time-out was completed verifying correct patient, procedure, site, positioning, and implant(s) or special equipment if applicable. The patient was placed in a dependent position appropriate for triple lumen catheter placement based on the vein to be cannulated. The patient's left neck was prepped and draped in sterile fashion. 1% Lidocaine was used to anesthetize the surrounding skin area. A triple lumen 9F Cordis catheter was introduced into the internal jugular vein using Seldinger technique. The catheter was threaded smoothly over the guide wire and appropriate blood return was obtained. Each lumen of the catheter was evacuated of air and flushed with sterile saline. The catheter was then sutured in place to the skin and a sterile dressing applied. No bedside complications or bleeding. Chest x-ray showed no pneumothorax. MMODL / IJN: [id number] /
--- NOTE | 2019-09-18 02:26 | PCN ---
PROCEDURE NOTE ARTERIAL LINE PLACEMENT: Indications: Hemodynamic monitoring. A time-out was completed verifying correct patient, procedure, site, positioning, and implant(s) or special equipment if applicable. Nino's test was performed to ensure adequate perfusion. The patient's left wrist was prepped and draped in sterile fashion. 1% Lidocaine was used to anesthetize the area. An 18G Arrow arterial line was introduced into the radial artery. The catheter was threaded over the guide wire and the needle was removed with appropriate pulsatile blood return. Blood loss was minimal. The catheter was then sutured in place to the skin and a sterile dressing applied. Perfusion to the extremity distal to the point of catheter insertion was checked and found to be adequate. The patient tolerated the procedure well and there were no complications. No bedside complications or bleeding. MMODL / IJN: [id number] /
[2019-09-18 05:35] LABS: Anisocytosis Moderate; Basophils % (A) 0 %; Eosinophils % (A) 0 %; HCT 23.6 % (39.0-53.0); Hypochromasia Marked; Lymphocytes # (A) 0.4 k/uL (1.0-4.8); Lymphocytes % (A) 3 %; MCH 21.4 pg (25.0-35.0); MCHC 29.5 g/dL (31.0-37.0); MCV 72.7 fL (80.0-100.0); Mean Platelet Volume 6.9; Microcytosis Marked; Monocytes # (A) 0.5 k/uL (0-1.0); Monocytes % (A) 4 %; Neutrophils # (A) 13.4 k/uL (1.3-7.7); Neutrophils % (A) 92 %; Platelet Count 201 k/uL (150-450); Poikilocytosis Slight; RBC 3.25 m/uL (4.30-5.90); RDW 20.6 % (11.5-15.5); WBC 14.5 k/uL (3.8-10.6)
[2019-09-18 05:41] LABS: INR 2.1 (<1.2); Prothrombin Time 20.6 sec (9.0-12.0)
[2019-09-18 06:16] LABS: Calcium 7.6 mg/dL (8.4-10.2); Potassium 3.6 mmol/L (3.5-5.1)
[2019-09-18] MEDS ORDERED: ERTAPENEM 0.5 GM in SODIUM CHLORIDE 0.9% 50 ML IVPB SCH (09:00)
--- NOTE | 2019-09-18 09:19 | PN ---
PROGRESS NOTE Mr. Villafana is a 69-year-old male who became hypotensive. He has a known history of coronary artery disease, status post coronary artery bypass grafting, and aortic valve replacement, history of cor paroxysmal atrial fibrillation who presented with evidence of sepsis and urinary tract infection with septic shock and change in mental status. Patient is wheelchair bound. He had an echocardiogram on September 14 that revealed a preserved systolic function. He continues to be at this time on IV fluid in addition to Lipitor, vancomycin. PHYSICAL EXAMINATION: Blood pressure running in the 150s with a heart rate in the low 100s, afebrile. LUNGS: Clear anteriorly. HEART: Regular rate and rhythm, S1, S2 with systolic ejection murmur, no diastolic murmur, no rub. ABDOMEN: Soft. Positive bowel sounds. EXTREMITIES: +1 to 2 edema. LAB DATA: Revealed hemoglobin of 7, down from 10.7 yesterday. White blood cell of 14.5. BUN and creatinine is 73 and 2.1. His potassium is 3.6. IMPRESSION: 1. Hypotension with findings consistent with sepsis and urinary tract infection. 2. History of coronary artery disease, status post coronary bypass grafting, aortic valve replacement. 3. Paroxysmal atrial fibrillation. 4. Anemia, worsened. 5. Worsening renal function. 6. Mild troponin elevation most likely related to the demand supply mismatch. 7. Prior history of hypertension. 8. Hyperlipidemia. RECOMMENDATION: From the cardiac standpoint, will continue on supportive care at this time. Continue antibiotics as presented. Follow his renal function closely. The patient may require further transfusion. Depending on his progress, further recommendation will be made. MMODL / IJN: [id number] /
[2019-09-18] MEDS: HYDROmorphone 0.5 MG/0.5 ML SYRINGE IVP PRN ×2 (10:12→16:43)
[2019-09-18] MEDS: LACTULOSE 20 GM/30 ML CUP PO SCH ×3 (10:14→22:51)
[2019-09-18 10:19] VITALS: BMI 26.6
--- NOTE | 2019-09-18 10:46 | P.PN ---
Subjective Progress Note Date: 09/18/19 Principal diagnosis: acute septic shock secondary to E. coli urinary tract infection.could also be a combination of septic and cardiogenic shock This is a 69-year-old male patient with multiple medical problems and comorbidities. The patient got transferred to the intensive care unit yesterday after Karen team was called for hypotension and some degree of shortness of breath. The patient was being diuresed on the floor with IV Lasix. Currently is in intensive care unit. He is on pressors and norepinephrine infusion is running at 0.3 g per KG per minute. Urine output is in order of 20 mL an hour. His creatinine is on the rise and I noted the creatinine is, from a baseline of 1.3 is up to 2.68 over the past 3 days. As such, the patient is an acute kidney injury. Going back to the history, the patient has history of coronary artery disease and he has had a previous RI in 2016 and his undergone bypass surgery and a aortic valve replacement/repair.. The patient also has history of proximal atrial fibrillation, chronic stage III kidney disease, BPH, hypertensi on, severe left-sided diverticulosis, bilateral foot drop and the patient is wheelchair bound and he has chronic intellectual delay. He lives with his brother who happens to be his DPOAE. He moves around with the help of a wheelchair. According to the history, the patient was having some increased nausea and emesis and generalized weakness and he was treated for UTI on outpatient basis. During this current admission, the urine was checked and was positive for E. coli and the patient was found to have an ESBL producing E. coli and currently is on IV Invanz regarding this ongoing infection. The patient does not have any chronic indwelling Panda catheter per history. He has had previous E. coli septicemia back in 2016. His current blood cultures are negative. The patient has a normal left ventricle ejection fraction with an EF around 55-60% and he has concentric left ventricular hypertrophy. His echocardiogram also showed a mild aortic stenosis and aortic valve gradient was 19 mmHg. Right ventricular pressures were not accurately estimated. He is still on long-term anticoagulation regarding his atrial fibrillation. His INR today is at 3.6. He was hospitalized back in June 2019 for a GI bleed. His previous crit colonoscopy showed diverticulosis. Small polyps were removed from the colon from the ascending and transverse colon and there was moderate to severe diverticulosis and this was completed in June 2019. He also had a EGD that showed no active bleeding and some mild antral and body gastritis. The CAT scan of the abdomen and pelvis that was done also during this current admission showed diverticulosis without diverticulitis. There was mild to mo derate ascites, bilateral inguinal hernias containing ascitic fluid and there was no bowel identified and there was cholelithiasis and splenomegaly and small bilateral pleural effusions. This morning the patient intensive care unit. Is quite lethargic. He does not communicate. Upon called his name, he would look and may identify the person and then not react. Upon giving him a painful stimulation, he will say that he is hurting. He would withdraw his upper extremities. Movement is very limited in lower extremities. Abdomen is distended. He does have diffuse anasarca. There is some abdominal distention and extensive edema in lower extremities bilaterally. His serum albumin is currently at 2.3. His proBNP level is 12,400. His liver function tests are showing an AST of 134 ALT of 62 without follow phosphatase of 310. His troponin is 0.8. Serum INR from today is at 3.6. The serum ammonia level from today is at 28 and dropped from 128. Reevaluated today on 09/18/2019, patient remains in the ICU, extremely lethargic, tries to communicate, but cannot understand his speech. Patient remains on norepinephrine at 0.45 mcg/kg/m, continues to complain of pain all over, he has limited movement in his upper and lower extremities. Continues to have slight abdominal distention and extensive edema in upper and lower extremities as well as an abdominal wall.labs showed leukocytosis with WBC count of 14.5 hemoglobin is 7 electrolytes are normal bicarb is a bit low at 18 BUN is 73 creatinine 2.10, slightly improved compared to yesterday at 2.58.chest x-ray continues to show evidence of pulmonary edema.lasted BNP level was 12,400. Troponin remains elevated at 0.049.patient remains on broad-spectrum antibiotics coverage for his ESBL E. coli urinary tract infection. Patient remains in paroxysmal atrial fibrillation, and he continues to have worsening renal function. Remains being followed by many consultants including nephrology and infectious disease and cardiology.patient has known history of coronary artery disease, previous CABG previous aortic valve replacement and history of paroxysmal atrial fibrillation. His presentation was mostly a presentation of sepsis and urinary tract infection with mental status change. Patient is normally wheelchair bound. His echocardiogram showed good LV function.antibiotics harry, remains on Invanz. Objective - Vital Signs Vital signs: Vital Signs Temp 98.9 F 09/18/19 04:00 Pulse 104 H 09/18/19 07:00 Resp 18 09/18/19 07:00 BP 104/61 09/17/19 17:30 Pulse Ox 95 09/18/19 07:00 Intake & Output 09/17/19 09/18/19 09/18/19 18:59 06:59 18:59 Intake Total 3835.929 1144.227 227.351 Output Total 1065 825 75 Balance 2770.929 319.227 152.351 Weight 86.6 kg 86.6 kg Intake: IV 3309 972 81 0.9 1585 900 75 0.9 NS pressure lines 24 72 6 Albumin Human 5% 250 ml 250 In Empty Bag 1 bag @ 250 mls/hr IVPB ONCE ONE Rx#: [id number] Albumin Human 5% 250 ml 500 In Empty Bag 1 bag @ 250 mls/hr IVPB ONCE ONE Rx#: [id number] Albumin Human 5% 250 ml 250 In Empty Bag 1 bag @ 250 mls/hr IVPB ONCE ONE Rx#: [id number] Albumin Human 5% 250 ml 250 In Empty Bag 1 bag @ 250 mls/hr IVPB ONCE ONE Rx#: [id number] Ertapenem 1 gm In Sodium 100 Chloride 0.9% 50 ml @ 100 mls/hr IVPB DAILY [facility] Rx #:[id number] Phytonadione 5 mg In 100 Sodium Chloride 0.9% 50 ml @ 100 mls/hr IVPB ONCE STA Rx#:[id number] Vancomycin 1,500 mg In 250 Sodium Chloride 0.9% 250 ml @ 125 mls/hr IVPB ONCE ONE Rx#:[id number] Intake, IV Titration 526.929 172.227 146.351 Amount Norepinephrine 32 mg In 89.194 146.351 Sodium Chloride 0.9% 218 ml @ 0.29 MCG/KG/MIN 11. 351 mls/hr IV .[id number] [facility] Rx#:[id number] Norepinephrine 4 mg In 526.929 83.033 Sodium Chloride 0.9% 250 ml @ 0.05 MCG/KG/MIN 15. 907 mls/hr IV .[id number] [facility] Rx#:[id number] Output: Urine 1065 825 75 Other: Voiding Method Indwelling Catheter Indwelling Catheter # Voids 1 ABP, PAP, CO, CI - Last Documented Arterial Blood Pressure 111/45 - Exam Physical Exam: Revealed a 69-year-old white male, has mostly garbled speech, has difficulty communicating, in no form of respiratory distress. Head: Atraumatic, normocephalic. HEENT:[Neck is supple.] [No neck masses.] [No thyromegaly.] [No JVD.]incomplete healing of tracheostomy site over the anterior neck/base. Moist mucous membranes. Chest: [symmetrical chest expansion, crackles on the rhonchi bilaterally were noted.] Cardiac Exam: [irregular irregular rhythm/consistent with atrial fibr illation.Normal S1 and S2, no S3 gallop,2/6 systolic murmur thought the precordium. Abdomen: [distended with evidence of abdominal wall edema., nontender, no megaly, no rebound, no guarding, normal bowel sounds.] Extremities: [No clubbing, 2+ bipedal edema, no cyanosis.]significant edema all also noted in upper extremities, chronic contractures of foot drop and lower extremities, skin is extremely thin and glistening. Neurological Exam: arousable, follows very simple instructions, bilateral feet the drop is noted, no facial asymmetry, pupils equally reactive to light, encephalopathic, and confused. Speech is very difficult to understand. Skin: As noted above, patient has extremely frail skin and glistening. Psychiatric: Cannot be assessed, patient does have a blunt affect, poor mental status. Lymphatics: No lymphadenopathy. - Labs CBC & Chem 7: 09/18/19 05:10 09/18/19 05:10 Labs: Abnormal Lab Results - Last 24 Hours (Table) 09/17/19 09/17/19 09/17/19 Range/Units 04:25 11:07 12:36 WBC (3.8-10.6) k/uL RBC (4.30-5.90) m/uL Hgb (13.0-17.5) gm/dL Hct (39.0-53.0) % MCV (80.0-100.0) fL MCH (25.0-35.0) pg MCHC (31.0-37.0) g/dL RDW (11.5-15.5) % Neutrophils # (1.3-7.7) k/uL Lymphocytes # (1.0-4.8) k/uL PT (9.0-12.0) sec INR (<1.2) ABG pH 7.49 H (7.35-7.45) ABG pCO2 27 L (35-45) mmHg ABG pO2 81 L (83-108) mmHg ABG HCO3 20 L (21-25) mmol/L Chloride (98-107) mmol/L Carbon Dioxide (22-30) mmol/L BUN (9-20) mg/dL Creatinine (0.66-1.25) mg/dL Glucose (74-99) mg/dL Plasma Lactic Acid Gurpreet 4.5 H* (0.7-2.0) mmol/L Calcium (8.4-10.2) mg/dL Troponin I 0.049 H* (0.000-0.034) ng/mL 09/17/19 09/17/19 09/17/19 Range/Units 13:31 14:59 19:16 WBC (3.8-10.6) k/uL RBC (4.30-5.90) m/uL Hgb (13.0-17.5) gm/dL Hct (39.0-53.0) % MCV (80.0-100.0) fL MCH (25.0-35.0) pg MCHC (31.0-37.0) g/dL RDW (11.5-15.5) % Neutrophils # (1.3-7.7) k/uL Lymphocytes # (1.0-4.8) k/uL PT 43.4 H (9.0-12.0) sec INR 4.5 H (<1.2) ABG pH (7.35-7.45) ABG pCO2 (35-45) mmHg ABG pO2 (83-108) mmHg ABG HCO3 (21-25) mmol/L Chloride (98-107) mmol/L Carbon Dioxide (22-30) mmol/L BUN (9-20) mg/dL Creatinine (0.66-1.25) mg/dL Glucose (74-99) mg/dL Plasma Lactic Acid Gurpreet 2.9 H* 2.2 H* (0.7-2.0) mmol/L Calcium (8.4-10.2) mg/dL Troponin I (0.000-0.034) ng/mL 09/18/19 09/18/19 09/18/19 Range/Units 05:10 05:10 05:10 WBC 14.5 H (3.8-10.6) k/uL RBC 3.25 L (4.30-5.90) m/uL Hgb 7.0 L D (13.0-17.5) gm/dL Hct 23.6 L (39.0-53.0) % MCV 72.7 L (80.0-100.0) fL MCH 21.4 L (25.0-35.0) pg MCHC 29.5 L (31.0-37.0) g/dL RDW 20.6 H (11.5-15.5) % Neutrophils # 13.4 H (1.3-7.7) k/uL Lymphocytes # 0.4 L (1.0-4.8) k/uL PT 20.6 H (9.0-12.0) sec INR 2.1 H (<1.2) ABG pH (7.35-7.45) ABG pCO2 (35-45) mmHg ABG pO2 (83-108) mmHg ABG HCO3 (21-25) mmol/L Chloride 117 H (98-107) mmol/L Carbon Dioxide 18 L (22-30) mmol/L BUN 73 H (9-20) mg/dL Creatinine 2.10 H (0.66-1.25) mg/dL Glucose 121 H (74-99) mg/dL Plasma Lactic Acid Gurpreet (0.7-2.0) mmol/L Calcium 7.6 L (8.4-10.2) mg/dL Troponin I (0.000-0.034) ng/mL Microbiology - Last 24 Hours (Table) 09/13/19 12:00 Blood Culture - Preliminary Blood No Growth after 96 hours Assessment and Plan Assessment: impression: Hypotension secondary to acute septic shock, doubt cardiogenic shock, his source of infection is most likely E. coli, this was ESBL producing organism, and he remains on IV Invanz. Patient is still requiring norepinephrine, being titrated accordingly. Altered mental status secondary to above. Acute urinary tract infection secondary to E. coli. Chronic atrial fibrillation. Coronary artery disease, previous CABG, and previous aortic valve replacement in 2017. Bioprosthetic valve Chronic liver disease with hepatic encephalopathy and ascites and elevated ammonia on presentation. Hypoalbuminemia and anasarca. History of hypertension. Previous history of respiratory failure requiring prolonged mechanical ventilation and previous tracheostomy tube insertion. Chronic bilateral foot drop, patient is wheelchair bound. Stage II wound left buttock ulcer and left heel. Acute kidney injury with marginal urine output. history of GI bleeding secondary to diverticulosis requiring blood transfusion History of hyperlipidemia History of intellectual delay. Recommendation: continue to monitor in the ICU. Continue Invanz. Continue norepinephrine and titrate to a mean arterial pressure of 65 or higher. Continue to monitor daily labs. Continue to monitor CBC and ongoing bandemia Continue nutritional support patient may have to be fed enterally using a nasogastric tube. In the meantime continue albumin infusions as needed Continue pain control. Continue bronchodilators. Continue GI and DVT prophylaxis. diurese as needed. Overall prognosis is extremely poor and guarded, patient will be kept in the ICU for now, and we'll continue to follow. Critical care time is 35 minutes. Time with Patient: Greater than 30
[2019-09-18] MEDS: NOREPINEPHRINE 32 MG in SODIUM CHLORIDE 0.9% 218 ML IV SCH (11:26)
[2019-09-18] MEDS ORDERED: SODIUM BICARB 8.4% 50 ML SYR (1 MEQ/ML) IV STA (12:11)
[2019-09-18] MEDS ORDERED: Potassium Replacement Protocol 1 EACH MISC MISCELLANE PRN (12:11)
[2019-09-18] MEDS ORDERED: FUROSEMIDE 10 MG/ML 4 ML VIAL IV STA (12:12)
[2019-09-18] MEDS ORDERED: POTASSIUM CHLORIDE 10 MEQ in WATER FOR INJECTION 1 100ML.BAG IVPB SCH (12:15)
[2019-09-18] MEDS: POTASSIUM CHLORIDE 20 MEQ in WATER FOR INJECTION 1 100ML.BAG IVPB SCH ×2 (13:07→16:43)
[2019-09-18 13:10] LABS: Albumin 1.8 g/dL (3.80-4.90); Gamma Globulin 0.92 g/dL (0.70-1.50)
--- NOTE | 2019-09-18 13:29 | P.PN ---
Subjective Patient is seen in follow-up for acute kidney injury on chronic kidney disease. Currently on 28 mics of Levophed. Maintain no normal saline at 75 mL an hour. Patient is quite edematous. Remains lethargic. Not a reliable historian. Vital signs are stable. Currently on vasopressors. General: The patient appeared well nourished and normally developed. HEENT: Head exam is unremarkable. Neck is without jugular venous distension. LUNGS: Lungs are clear to auscultation and percussion. Breath sounds decreased. HEART: Rate and Rhythm are regular. First and second heart sounds normal. No murmurs, rubs or gallops. ABDOMEN: Abdominal exam reveals normal bowel sounds. Soft. EXTREMITITES: 2+ edema. Objective - Vital Signs Vital signs: Vital Signs Temp 98.1 F 09/18/19 12:00 Pulse 109 H 09/18/19 13:00 Resp 19 09/18/19 13:00 BP 98/58 09/18/19 09:00 Pulse Ox 91 L 09/18/19 13:00 Intake & Output 09/17/19 09/18/19 09/18/19 18:59 06:59 18:59 Intake Total 3835.929 1144.227 718.215 Output Total 1065 825 355 Balance 2770.929 319.227 363.215 Weight 86.6 kg 86.6 kg Intake: IV 3309 972 536 0.9 1585 900 450 0.9 NS pressure lines 24 72 36 Albumin Human 5% 250 ml 250 In Empty Bag 1 bag @ 250 mls/hr IVPB ONCE ONE Rx#: [id number] Albumin Human 5% 250 ml 500 In Empty Bag 1 bag @ 250 mls/hr IVPB ONCE ONE Rx#: [id number] Albumin Human 5% 250 ml 250 In Empty Bag 1 bag @ 250 mls/hr IVPB ONCE ONE Rx#: [id number] Albumin Human 5% 250 ml 250 In Empty Bag 1 bag @ 250 mls/hr IVPB ONCE ONE Rx#: [id number] Ertapenem 1 gm In Sodium 100 50 Chloride 0.9% 50 ml @ 100 mls/hr IVPB DAILY [facility] Rx #:[id number] Phytonadione 5 mg In 100 Sodium Chloride 0.9% 50 ml @ 100 mls/hr IVPB ONCE STA Rx#:[id number] Vancomycin 1,500 mg In 250 Sodium Chloride 0.9% 250 ml @ 125 mls/hr IVPB ONCE ONE Rx#:[id number] Intake, IV Titration 526.929 172.227 182.215 Amount Norepinephrine 32 mg In 89.194 182.215 Sodium Chloride 0.9% 218 ml @ 0.29 MCG/KG/MIN 11. 351 mls/hr IV .Q22H2M [facility] Rx#:[id number] Norepinephrine 4 mg In 526.929 83.033 Sodium Chloride 0.9% 250 ml @ 0.05 MCG/KG/MIN 15. 907 mls/hr IV .[id number] [facility] Rx#:[id number] Output: Urine 1065 825 355 Other: Voiding Method Indwelling Catheter Indwelling Catheter Indwelling Catheter # Voids 1 ABP, PAP, CO, CI - Last Documented Arterial Blood Pressure 101/44 - Labs CBC & Chem 7: 09/18/19 05:10 09/18/19 05:10 Labs: Abnormal Lab Results - Last 24 Hours (Table) 09/15/19 09/17/19 09/17/19 Range/Units 09:21 13:31 14:59 WBC (3.8-10.6) k/uL RBC (4.30-5.90) m/uL Hgb (13.0-17.5) gm/dL Hct (39.0-53.0) % MCV (80.0-100.0) fL MCH (25.0-35.0) pg MCHC (31.0-37.0) g/dL RDW (11.5-15.5) % Neutrophils # (1.3-7.7) k/uL Lymphocytes # (1.0-4.8) k/uL PT 43.4 H (9.0-12.0) sec INR 4.5 H (<1.2) Chloride (98-107) mmol/L Carbon Dioxide (22-30) mmol/L BUN (9-20) mg/dL Creatinine (0.66-1.25) mg/dL Glucose (74-99) mg/dL Plasma Lactic Acid Gurpreet 2.9 H* (0.7-2.0) mmol/L Calcium (8.4-10.2) mg/dL Albumin (PEP) 1.80 L (3.80-4.90) g/dL [id number] 0.49 H (0.10-0.40) g/dL 09/17/19 09/18/19 09/18/19 Range/Units 19:16 05:10 05:10 WBC 14.5 H (3.8-10.6) k/uL RBC 3.25 L (4.30-5.90) m/uL Hgb 7.0 L D (13.0-17.5) gm/dL Hct 23.6 L (39.0-53.0) % MCV 72.7 L (80.0-100.0) fL MCH 21.4 L (25.0-35.0) pg MCHC 29.5 L (31.0-37.0) g/dL RDW 20.6 H (11.5-15.5) % Neutrophils # 13.4 H (1.3-7.7) k/uL Lymphocytes # 0.4 L (1.0-4.8) k/uL PT (9.0-12.0) sec INR (<1.2) Chloride 117 H (98-107) mmol/L Carbon Dioxide 18 L (22-30) mmol/L BUN 73 H (9-20) mg/dL Creatinine 2.10 H (0.66-1.25) mg/dL Glucose 121 H (74-99) mg/dL Plasma Lactic Acid Gurpreet 2.2 H* (0.7-2.0) mmol/L Calcium 7.6 L (8.4-10.2) mg/dL Albumin (PEP) (3.80-4.90) g/dL [id number]-8-Tirvlzhyc (0.10-0.40) g/dL 09/18/19 Range/Units 05:10 WBC (3.8-10.6) k/uL RBC (4.30-5.90) m/uL Hgb (13.0-17.5) gm/dL Hct (39.0-53.0) % MCV (80.0-100.0) fL MCH (25.0-35.0) pg MCHC (31.0-37.0) g/dL RDW (11.5-15.5) % Neutrophils # (1.3-7.7) k/uL Lymphocytes # (1.0-4.8) k/uL PT 20.6 H (9.0-12.0) sec INR 2.1 H (<1.2) Chloride (98-107) mmol/L Carbon Dioxide (22-30) mmol/L BUN (9-20) mg/dL Creatinine (0.66-1.25) mg/dL Glucose (74-99) mg/dL Plasma Lactic Acid Gurpreet (0.7-2.0) mmol/L Calcium (8.4-10.2) mg/dL Albumin (PEP) (3.80-4.90) g/dL Dsglb-1-[id number] (0.10-0.40) g/dL Microbiology - Last 24 Hours (Table) 09/17/19 13:09 Stool Culture - Preliminary Stool 09/13/19 12:00 Blood Culture - Preliminary Blood No Growth after 96 hours Assessment and Plan Plan: Assessment: 1. Acute kidney injury secondary to ATN secondary to septic shock and contrast- induced nephropathy. Renal function better. Creatinine 2.1 today. No evidence of hydronephrosis noted on CAT scan. No proteinuria on UA. 2. Chronic kidney disease stage III with baseline creatinine in the range of 1.2-1.4. Patient has not been seen in our office outpatient. 3. Elevated liver enzymes. Cause unclear. GI following. May need MRCP down the road. 4. Metabolic acidosis secondary to acute kidney injury and IV fluids. 5. Septic shock secondary to E. coli UTI maintained on antibiotics. 6. Generalized edema secondary to hypoalbuminemia. Plan: Maintain normal saline at 75 mL an hour. Lasix 40 mg IV once today. 2 A of bicarb IV push today. Unable to take oral pills at this time. Wean vasopressors. Avoid nephrotoxins. Discontinued Motrin and Toradol. Continue to monitor renal function and urine output. Monitor hemoglobin.
[2019-09-18 13:42] LABS: Liver/Kidney Microsome Antibod 1.6 UNITS (<=20)
--- NOTE | 2019-09-18 15:26 | PN ---
PROGRESS NOTE DATE OF SERVICE: 09/18/2019 REASON FOR CONSULTATION: Elevated LFTs. HISTORY OF PRESENT ILLNESS: The patient is a 69-year-old pleasant white male admitted to the hospital with acute septic shock secondary to E coli UTI. While in the hospital, he was noted to have elevated serum transaminases and hence we are consulted in regard to this issue. The patient was seen in consultation by Dr. Hernández 2 days ago. He was noted to have elevated LFTs, no clear history of any chronic liver documented or chronic liver disease. He was noted to have elevated bilirubin at 2.4 with AST more than ALT and slightly elevated alkaline phosphatase. As a part of workup, he did have a hepatitis serologies for A, B and C that was negative. Autoimmune workup including antinuclear antibody, antimitochondrial antibody, and serum protein electrophoreses all were within normal limits. Serum ceruloplasmin and alpha 1 antitrypsin were within normal limits. He did have ultrasound of the abdomen done that showed evidence of a small amount of ascites and otherwise unremarkable. The patient continues to remain on Levophed at 30 mcg/h. He denies any symptoms. Continues to have generalized weakness. He did have an EGD and colonoscopy done in June of 2019 during his previous hospitalizations for GI bleed and was noted to have small polyps as well as gastritis. PHYSICAL EXAMINATION: Patient appears comfortable. Denies any complaints. Physical examination, vital signs show a blood pressure 108/44 on 30 mcg of Levophed and pulse rate is 114 and afebrile. HEENT: Examination unremarkable, conjunctivae are pale. Sclerae nonicteric. Oral cavity no lesions. NECK: No JVD or lymph node enlargement. CHEST: Clear to auscultation. HEART: Regular rate and rhythm. ABDOMEN: Soft. Bowel sounds are positive. No organomegaly. There was a mild ascites seen. EXTREMITIES: 3+ pedal edema. SKIN: Multiple bruises in the upper extremities. NEURO: He is awake, but not communicating very well. LABS: From today, WBC 14.5, hemoglobin 7, platelets are 201. Hemoglobin yesterday was 10.7 g/dL. INR is 2.1. Albumin is 2.3. LFTs today are not available. BUN is 73, creatinine 2.10, T-bilirubin yesterday was 2.4. AST was 134, ALT 62, and alkaline phosphatase 310. IMPRESSION: 1. Sepsis/urinary tract infection, presently on broad-spectrum antibiotics. 2. Hypotension, remains on Levophed 30 mcg/h. 3. Elevated LFTs and on review of the old records it appears the patient has been noted to have elevated LFTs for the last 3 years duration. He is Ursodiol on an outpatient basis for unclear reasons, most likely we are dealing with chronic liver disease of unclear etiology. All workup for chronic liver disease has been negative. The possibility of alcoholic liver disease needs to be considered, though I was not able to obtain any history at this point. 4. Coagulopathy secondary to underlying liver disease. 5. Anemia with a hemoglobin of 7 g/dL and iron indices show ferritin of 51. He did have EGD colonoscopy during this hospitalization that showed small polyps and diverticulosis as well as gastritis. 6. Ascites. RECOMMENDATIONS: 1. Obtain ultrasound of the abdomen to see for increasing ascites and if present, will consider a diagnostic/therapeutic paracentesis. 2. Continue broad-spectrum antibiotics. 3. Monitor LFTs closely. 4. Thank you for this consultation. Ling follow with you closely. MMODL / IJN: [id number] /
--- NOTE | 2019-09-18 15:31 | US ---
EXAMINATION TYPE: US abdomen limited DATE OF EXAM: 09/18/2019 COMPARISON: CT abdomen and pelvis September 13, 2019 CLINICAL HISTORY: ascites, liver disease. Swelling. Pocket of fluid seen within right side of abd. Images saved show more prominent focus of ascites right lower quadrant versus recent CT. No significa nt ascites or fluid collection bilateral upper quadrants or left lower quadrant. IMPRESSION: As above.
--- NOTE | 2019-09-18 16:26 | PN ---
PROGRESS NOTE DATE OF SERVICE: 09/18/2019 REASON FOR FOLLOWUP: 1. ESBL E coli urinary tract infection. 2. Question of pneumonia. INTERVAL HISTORY: The patient is currently afebrile. The patient is still requiring pressor support, though dose is slightly cut back compared to what it was this morning per the RN. The patient is breathing comfortably. He did have some cough but not bringing up any sputum. No nausea, no vomiting. No abdominal pain or diarrhea reported by the nursing staff. PHYSICAL EXAMINATION: Blood pressure 108/44 with a pulse of 111, temperature 98. He is 90% on L nasal cannula. General description is an elderly male lying in bed in no distress. RESPIRATORY SYSTEM: Unlabored breathing with decreased breath sounds at the base. No wheeze. HEART: S1, S2. Regular rate and rhythm. ABDOMEN: Soft. No tenderness. LABS: Hemoglobin is 7, white count 14.5, BUN of 73, creatinine 2.10. Blood culture repeat is so far negative. DIAGNOSTIC IMPRESSION AND PLAN: Patient with extended-spectrum beta-lactamase Escherichia coli urinary tract infection, now with a possible component of pneumonia, possibly Gram-positive. Patient did have borderline kidney function and high risk of nephrotoxicity. Hence we will add Zyvox and obtain a sputum sample and monitor his clinical course closely. MMODL / IJN: [id number] /
[2019-09-18] MEDS: LINEZOLID 600 MG in DEXTROSE/WATER 1 300ML.BAG IVPB SCH ×2 (16:43→22:51)
[2019-09-18 20:57] LABS: Glucose,Whole Blood 167 mg/dL (75-99)
[2019-09-18 21:03] LABS: ABG Base Excess -5.2 mmol/L; ABG HCO3 19 mmol/L (21-25); ABG Oxygen Saturation 95.9 % (94-97); ABG PCO2 29 mmHg (35-45); ABG PH 7.43 (7.35-7.45); ABG PO2 77 mmHg (83-108); ABG TCO2 20 mmol/L (19-24); Allen Test Performed? Yes
--- NOTE | 2019-09-18 21:16 | CT ---
EXAMINATION TYPE: CT brain wo con DATE OF EXAM: 09/18/2019 COMPARISON: None HISTORY: ams. Asymmetric pupil size. CT DLP: 1217.4 mGycm Automated exposure control for dose reduction was used. TECHNIQUE: CT scan of the head is performed without contrast. FINDINGS: There is no acute intracranial hemorrhage or midline shift identified. There is diffuse v entricular and sulcal prominence consistent with diffuse age-related cerebral atrophy. There is low- attenuation in the periventricular white matter consistent with chronic small vessel ischemic change. The globes are intact and the visualized sinuses are clear. IMPRESSION: No acute intracranial hemorrhage or midline shift. There is diffuse age-related cerebra l atrophy and chronic small vessel ischemic change noted. No evidence of cerebral edema or herniatio n. Globes are symmetric.
[2019-09-18 21:38] LABS: Anisocytosis Moderate; HCT 25.2 % (39.0-53.0); HGB 7.2 gm/dL (13.0-17.5); Hypochromasia Marked; MCH 20.8 pg (25.0-35.0); MCHC 28.7 g/dL (31.0-37.0); MCV 72.6 fL (80.0-100.0); Mean Platelet Volume 7.7; Microcytosis Marked; Platelet Count 229 k/uL (150-450); Poikilocytosis Slight; RBC 3.48 m/uL (4.30-5.90); RDW 21.8 % (11.5-15.5); WBC 22.4 k/uL (3.8-10.6)
[2019-09-18 21:43] LABS: Prothrombin Time 19.4 sec (9.0-12.0)
[2019-09-18 21:50] LABS: Albumin 2.2 g/dL (3.5-5.0); Calcium 7.5 mg/dL (8.4-10.2); Potassium 4.4 mmol/L (3.5-5.1); Total Bilirubin 4.3 mg/dL (0.2-1.3); Total Protein 4.7 g/dL (6.3-8.2)
[2019-09-18] MEDS ORDERED: SODIUM CHLORIDE 0.9% 1,000 ML IV ONE (21:55)
[2019-09-18] MEDS ORDERED: CHLORHEXIDINE GLUCONATE 15 ML CUP MUCOUS MEM SCH (22:00)
[2019-09-18] MEDS: PROPOFOL 1,000 MG in EMPTY BAG 1 BAG IV SCH (22:15)
--- NOTE | 2019-09-18 22:35 | XR ---
EXAMINATION TYPE: XR chest 1V portable DATE OF EXAM: 09/18/2019 COMPARISON: September 17, 2019 HISTORY: Check tube placement TECHNIQUE: Single frontal view of the chest is obtained. FINDINGS: Endotracheal tube is 3.5 cm from the sonido. There is pulmonary interstitial edema. Heart size is normal. There are sternal wires. There is cardiac valve surgery. There is nasogastric tube. IMPRESSION: Pulmonary edema is the same or slightly worse than yesterday. Endotracheal tube in good position.
[2019-09-18] MEDS: ATORVASTATIN 10 MG TAB PO SCH (22:51)
[2019-09-18 22:57] LABS: ABG Base Excess -6.8 mmol/L; ABG HCO3 19 mmol/L (21-25); ABG Oxygen Saturation 99.5 % (94-97); ABG PCO2 34 mmHg (35-45); ABG PH 7.35 (7.35-7.45); ABG PO2 209 mmHg (83-108); ABG TCO2 20 mmol/L (19-24)
[2019-09-18 23:00] LABS: Allen Test Performed? no
[2019-09-18] MEDS ORDERED: ALBUMIN HUMAN 25% 50 ML in EMPTY BAG 1 BAG IVPB ONE (23:11)
--- NOTE | 2019-09-19 00:36 | P.PN ---
Progress Note - Text Progress Note Date: 09/18/19 Chief Complaint: Weakness, abdominal pain Interval history: This is a 69-year-old patient of visiting physician Dr. Kelly. Chronic stable medical conditions include coronary artery disease with OK in 2017, persistent atrial flutter, BPH, chronic kidney disease stage III, hypertension, GERD, bilateral foot drop with contracture, severe left-sided diverticulosis, chronic intellectual delay. Patient lives with his brother, Samson was also DPOA.. Uses a wheelchair to get about. History is obtained by the brother. At the bedside.Patient is at abdominal pain on and off for about 2 weeks. Describes it on the left side right-sided upper abdominal. Seems to wax and wane. No change in bowel pattern. Patient was seen by the family doctor Dr. Kelly who did prescribe antibiotics about 2 weeks ago. And antibiotics were changed. Patient has been feeling more weak. Tired. Decreased appetite. There is no shortness of breath no cough no fever. Some nausea still present. No vomiting. Admitted with UTI and cystitis, sacral decubitus ulcer. And chest pain. No further workup per cardiology.Abdominal ultrasound negative for portal vein thrombosis. Minimal ascites. Patient developed hepatic encephalopathy with elevated ammonia. Lactulose was started. Patient became worse, moved to the ICU. He went into septic shock. Vitamin K was given to reverse the INR. Given fluid boluses. Started on levo fed.. Today-ICU. Remains in atrial fibrillation. Abdomen distended. Oxygen requirement went up to 10 L. Lethargic. Though does follow commands. Remains on levo fed.. Review of systems: Could not be done as patient is lethargic Active Medications Albuterol/Ipratropium (Duoneb 0.5 Mg-3 Mg/3 Ml Soln) 3 ml INHALATION RT-Q2H PRN PRN Reason: Shortness Of Breath Or Wheezing Last Admin: 09/17/19 20:15 Dose: 3 ml Documented by: Atorvastatin Calcium (Lipitor) 5 mg PO HS PERI Last Admin: 09/18/19 22:51 Dose: 5 mg Documented by: Chlorhexidine Gluconate (Peridex) 15 ml MUCOUS MEM BID PERI Last Admin: 09/18/19 22:51 Dose: 15 ml Documented by: Hydromorphone HCl (Dilaudid) 0.5 mg IVP Q2H PRN PRN Reason: Pain Last Admin: 09/18/19 16:43 Dose: 0.5 mg Documented by: Sodium Chloride (Saline 0.9%) 1,000 mls @ 60 mls/hr IV .[id number] PERI Last Admin: 09/18/19 16:42 Dose: 75 mls/hr Documented by: Norepinephrine Bitartrate 32 (mg/ Sodium Chloride) 250 mls @ 11.351 mls/hr IV .Q22H2M PERI; Protocol Last Titration: 09/18/19 23:53 Dose: 0.64 mcg/kg/min, 25.05 mls/hr Documented by: Ertapenem 1 gm/ Sodium (Chloride) 50 mls @ 100 mls/hr IVPB DAILY PERI; Protocol Linezolid 600 mg/ IV Solution 300 mls @ 150 mls/hr IVPB Q12HR PERI; Protocol Last Admin: 09/18/19 22:51 Dose: 150 mls/hr Documented by: Propofol 1,000 mg/ IV Solution 100 mls @ 0 mls/hr IV .Q0M PERI; Protocol Last Titration: 09/18/19 23:37 Dose: 30 mcg/kg/min, 15.588 mls/hr Documented by: Lactulose (Cephulac) 20 gm PO TID PREI Last Admin: 09/18/19 22:51 Dose: 20 gm Documented by: Miscellaneous Information (Potassium Per Protocol) 1 each MISCELLANE DAILY PRN; Protocol PRN Reason: Per Protocol Naloxone HCl (Narcan) 0.2 mg IV Q2M PRN PRN Reason: Opioid Reversal Ondansetron HCl (Zofran) 4 mg IVP Q8HR PRN PRN Reason: Nausea And Vomiting Last Admin: 09/14/19 21:21 Dose: 4 mg Documented by: Physical examination: VITAL SIGNS: 98.1, 110, 17, 100/61, 82% on 8 L GENERAL: Laying in bed, more tired EYES: Pupils equal. Conjunctiva pale. HEENT: Tracheostomy stoma NECK: JVD not raised; masses not palpable. HEART: Irregular heart sounds; edema. LUNGS: Respiratory rate increased, decreased breaths on. ABDOMEN: Soft, more distended, minimal tenderness, no guarding or rigidity, liver spleen not palpable, no masses palpable., DERMATOLOGICAL: Stage 3 sacral decubitus ulcer : Not his head following simple commands. EXTREMITIES: Bilateral foot drop with evidence of chronic ischemia in both the feet INVESTIGATIONS, reviewed in the clinical context: White count 14.5 hemoglobin 7 progression 3.6 bun 73 creatinine 2.10 Previous testing White count 10.2 hemoglobin 9.4 progression 4.9 bun 51 creatinine 1.53 UA positive for leukoesterase WPC occult stool-negative EKG tracing personally reviewed by me-sinus rhythm with LVH pattern Chest x-ray film personally reviewed by me-some elevation of right diaphragm CT ivzrvgs-kcow-id-moderate ascites, bilateral renal cyst, diverticulosis, bilateral inguinal hernia, cholelithiasis, splenomegaly, small bilateral pleural fluid EGD-colonoscopy done in June 2019 showed gastritis and diverticulosis. Abdomen-PORTAL VEIN FLOW PRESENT Hepatitis screen negative. 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 Ferritin 51. JOSUE screen negative. Assessment: --Hepatocellular disease with evidence of portal hypertension including splenomegaly, with some worsening -Hypotensive shock, a combination of volume loss from diarrhea, possibly infection., Requiring pressor support, not improving -Hepatic encephalopathy. On lactulose. -Acute UTI with cystitis having failed outpatient treatment -Stage III sacral decubitus ulcer -Paroxysmal atrial flutter fibrillation, uncontrolled -Coumadin monitoring, vitamin K was given -Moderate severity left-sided diverticulosis -Coronary artery disease with prior OK in 2017 /bypass -BPH -Chronic kidney disease stage III from nephrosclerosis -Essential hypertension, history of -GERD -Bilateral foot drop with contractures, chronic -Chronic intellectual delay -Coumadin monitoring -Acute kidney injury a combination of prerenal and ATN, possibly from cardiorenal syndrome from hypotension, worsening -Patient's brother is a POA Plan: Patient now doing well. Remains in the ICU. Fluid retaining. On levo fed. On antibiotics. Prognosis guarded. Discussed with Dr. Mayur Rutherford. He agrees with current plan. Follow with [employer].
[2019-09-19] MEDS ORDERED: SODIUM CHLORIDE 0.9% 50 ML with VASOPRESSIN 20 UNIT IVPB SCH ×2 (00:45)
[2019-09-19] MEDS: NOREPINEPHRINE 32 MG in SODIUM CHLORIDE 0.9% 218 ML IV SCH (00:51)
[2019-09-19 03:02] LABS: ABG Base Excess -11.3 mmol/L; ABG HCO3 17 mmol/L (21-25); ABG Oxygen Saturation 89.7 % (94-97); ABG PCO2 44 mmHg (35-45); ABG PO2 71 mmHg (83-108); ABG TCO2 18 mmol/L (19-24)
[2019-09-19] MEDS ORDERED: ALBUMIN HUMAN 25% 50 ML in EMPTY BAG 1 BAG IVPB ONE (03:30)
[2019-09-19 03:57] LABS: Allen Test Performed? no
[2019-09-19] MEDS: SODIUM CHLORIDE 0.9% 1,000 ML IV SCH (04:12)
[2019-09-19] MEDS: PROPOFOL 1,000 MG in EMPTY BAG 1 BAG IV SCH (04:12)
[2019-09-19 04:33] VITALS: TEMP 99.9
[2019-09-19] MEDS ORDERED: SODIUM BICARB 8.4% 50 ML SYR (1 MEQ/ML) ONE (05:19)
[2019-09-19 05:34] LABS: Glucose,Whole Blood 117 mg/dL (75-99)
[2019-09-19] MEDS ORDERED: MORPHINE SULFATE 2 MG/ML SYRINGE IV PRN (05:38)
[2019-09-19] MEDS ORDERED: MORPHINE SULFATE 4 MG/ML SYRINGE IV PRN (05:38)
[2019-09-19] MEDS ORDERED: MORPHINE SULFATE (100 MG/2 ML) 100 MG in SODIUM CHLORIDE 0.9% 100 ML IV SCH (05:45)
[2019-09-19 05:46] VITALS: BP 130/30; PULSE 90; RESP 58
[2019-09-19] MEDS ORDERED: ATROPINE OPHTH SOLN 1% 5ML BTL SUBLINGUAL PRN (06:05)
--- NOTE | 2019-09-19 06:33 | P.PN ---
Progress Note - Text Progress Note Date: 09/19/19 code blue was activated , patient evaluated, had bradycardia, discussed with family advanced directives , family wished to see the patient before making any decisions. patient was managed following ACLS protocol for bradycardia family at bedside made patient DNR and comfort care
[2019-09-19] MEDS ORDERED: ERTAPENEM 1 GM in SODIUM CHLORIDE 0.9% 50 ML IVPB SCH (09:00)
[2019-09-20 07:34] LABS: ABG PH 7.19 (7.35-7.45)
--- NOTE | 2019-09-21 11:05 | CDI ---
Documentation Clarification Form Date: 09/21/2019 10:25:44 AM From: Manuela Mccarthy RN, CCDS Email: [email or web address] Admit Date: 09/13/2019 2:53:00 PM Patient Name: Samuel Villafana Visit Number: [id number] Discharge Date: 09/19/2019 11:17:00 AM ATTENTION: The Clinical Documentation Specialists (CDI) and [facility] Coding Staff appreciate your assistance in clarifying documentation. Please respond to the clarification below the line at the bottom and electronically sign. The CDI & [facility] Coding staff will review the response and follow-up if needed. Please note: Queries are made part of the Legal Health Record. If you have any questions, please contact the author of this message via ITS. Dr. Jignesh Reardon The patient became short of breath on 09/16 and was placed on 4LNC. History/Risk Factors: CAD, atrial fibrillation, CKD stage 3, HTN. The patient became septic and went into septic shock, Hepatic encephalopathy and Acute kidney failure with ATN Tobacco use: former smoker Clinical Indicators: shortness of breath, white thick sputum, hypoxic, hypotension, 09/17 CXR showed pulmonary edema Vital signs: BP 88/51, HR 62, RR 20-60 Pulse oximetry: 62% on 09/16 Lung/Breathing assessment: rhonchi, diminished, expiratory wheeze 09/18 ABG: pH 7.19 pO2 71 pCO2 44 Lactate 3.7 Treatment: intubated on mechanical ventilator support, IV Levophed, IV Lasix Breathing treatment: Albuterol/Atrovent [id number] Ventilator support with ordered settings In your professional opinion, can you please clarify if these findings signify one of the following conditions? Acute Respiratory Failure Other Diagnosis, please specify Unable to determine Specificity: If known, further specify (if known): With hypercapnia? (pCO2 >50 and pH <7.35) With hypoxia? (pO2 <60 mm Hg or SpO2 <91% on room air) Acute hypoxic respiratory failure MTDD
--- NOTE | 2019-09-21 11:19 | CDI ---
Documentation Clarification Form Date: 09/21/2019 11:06:11 AM From: Manuela Mccarthy RN, CCDS Email: [email or web address] Admit Date: 09/13/2019 2:53:00 PM Patient Name: Samuel Villafana Visit Number: [id number] Discharge Date: 09/19/2019 11:17:00 AM ATTENTION: The Clinical Documentation Specialists (CDI) and [facility] Coding Staff appreciate your assistance in clarifying documentation. Please respond to the clarification below the line at the bottom and electronically sign. The CDI & [facility] Coding staff will review the response and follow-up if needed. Please note: Queries are made part of the Legal Health Record. If you have any questions, please contact the author of this message via ITS. Dr. Jignesh Reardon Echocardiogram that was done during this current admission shows severe concentric LVH and this is consistent with diastolic heart failure. Second Baller documents diastolic heart failure in 09/17 progress note. History/Risk Factors: CAD, Atrial fibrillation, CKD stage 3, HTN. The patient became septic and went into septic shock, Hepatic encephalopathy and Acute kidney failure with ATN. Clinical Indicators: shortness of breath, white thick sputum, hypoxic, hypotension, 3+ pedal edema along with generalized edema per documentation, hypoalbuminemia VS/Pulse OX: BP 88/51, HR 62, RR 20-60, 62% on 09/16 BNP: 12,400 Echocardiogram Results: severe left ventricular hypertrophy, EF 55-60% Chest X Ray: 09/16 Mild interstitial edema and small bilateral pleural effusions on background chronic parenchymal fibrotic change and mild cardiomegaly. 09/17 and 09/18 show pulmonary edema Treatment: IV Lasix, supplemental O2 with eventual ventilator support, Lopressor In your professional opinion, can you please clarify the acuity and type of CHF if known? Systolic Heart Failure: Acute Chronic Acute on Chronic Diastolic Heart Failure: Acute Chronic Acute on Chronic Unable to Determine Other, please specify No CHF MTDD
--- NOTE | 2019-09-21 11:54 | CDI ---
Documentation Clarification Form Date: 09/21/2019 11:45:25 AM From: Manuela Mccarthy RN, CCDS Email: [email or web address] Admit Date: 09/13/2019 2:53:00 PM Patient Name: Samuel Villafana Visit Number: [id number] Discharge Date: 09/19/2019 11:17:00 AM ATTENTION: The Clinical Documentation Specialists (CDI) and [facility] Coding Staff appreciate your assistance in clarifying documentation. Please respond to the clarification below the line at the bottom and electronically sign. The CDI & [facility] Coding staff will review the response and follow-up if needed. Please note: Queries are made part of the Legal Health Record. If you have any questions, please contact the author of this message via ITS. Dr. Jignesh Reardon Conflicting documentation has been found in the record. A stage 2 and stage 3 sacral pressure ulcer was documented in the progress notes. History/Risk Factors: Wheelchair bound, foot drop, intellectual delay Clinical Indicators: stage III sacral pressure ulcer with some slough tissue but no surrounding cellulitis per physician practice consultant's note on 09/13, stage II sacral ulcer per Nursing, erythema Location: sacrum/buttocks Wound description: erythema, slough, moist Treatment: Cleaned with normal saline and gauze and application of Optifoam Elements for accurate and compliant documentation of an ulcer: *The location/laterality of the ulcer *Etiology (decubitus/pressure, diabetic, PVD) *Stage I-IV, Unstageable, Suspected Deep Tissue Injury (To the deepest stage) *If the ulcer was present at admission (POA) or occurred after admission In your professional opinion, can you please clarify the diagnosis, location, laterality and whether present on admission (POA): Stage 1 Pressure/Decubitus Ulcer (intact skin, non-blanching redness of local area) Stage 2 Pressure/Decubitus Ulcer (Partial thickness, loss of dermis, pink wound bed) Stage 3 Pressure/Decubitus Ulcer (Full thickness tissue loss) Stage 4 Pressure/Decubitus Ulcer (Full thickness tissue loss with exposed bone, tendon, or muscle. May have slough or eschar present) Other condition, please specify Unable to determine Please indicate etiology of pressure ulcer (if known). Stage III sacral decubitus ulcer, POA MTDD
--- NOTE | 2019-09-22 15:40 | P.DS ---
Providers Date of admission: 09/13/19 14:53 Expected date of discharge: 09/19/19 (Patient ) Attending physician: Jignesh Reardon Consults: 09/13/19 14:53 Consult Physician Stat Consulting Provider: Josh Ibarra Consult Reason/Comments: chest pain Do you want consulting provider notified?: Yes 09/13/19 14:57 Consult Physician Stat Consulting Provider: Franki Narvaez Consult Reason/Comments: recurrent uti Do you want consulting provider notified?: Yes 09/13/19 15:48 Consult Physician Stat Consulting Provider: Rickey Hernández Consult Reason/Comments: New ascites, elevated bili Do you want consulting provider notified?: Yes 09/17/19 03:48 Consult Physician Stat Consulting Provider: Dinesh Yoo Consult Reason/Comments: ICU Management Do you want consulting provider notified?: Yes 09/17/19 10:39 Consult Physician Stat Consulting Provider: Luis Fernando Juan Consult Reason/Comments: elevated creatinine Do you want consulting provider notified?: Already Contacted 09/18/19 20:14 Consult Physician Stat Consulting Provider: Diana Alcala Consult Reason/Comments: possible stroke Do you want consulting provider notified?: Yes Primary care physician: Yeison Kelly [facility] Course: Chief Complaint: Weakness, abdominal pain Interval history: This is a 69-year-old patient of visiting physician Dr. Kelly. Chronic stable medical conditions include coronary artery disease with [place] in 2017, persistent atrial flutter, BPH, chronic kidney disease stage III, hypertension, GERD, bilateral foot drop with contracture, severe left-sided diverticulosis, chronic intellectual delay. Patient lives with his brother, Samson was also DPOA.. Uses a wheelchair to get about. History is obtained by the brother. At the bedside.Patient is at abdominal pain on and off for about 2 weeks. Describes it on the left side right-sided upper abdominal. Seems to wax and wane. No change in bowel pattern. Patient was seen by the family doctor Dr. Kelly who did prescribe antibiotics about 2 weeks ago. And antibiotics were changed. Patient has been feeling more weak. Tired. Decreased appetite. There is no shortness of breath no cough no fever. Some nausea still present. No vomiting. Admitted with UTI and cystitis, sacral decubitus ulcer. And chest pain. No further workup per cardiology.Abdominal ultrasound negative for portal vein thrombosis. Minimal ascites. Patient developed hepatic encephalopathy with elevated ammonia. Lactulose was started. Patient became worse, moved to the ICU. He went into septic shock. Vitamin K was given to reverse the INR. Given fluid boluses. Started on levo fed.. Patient is felt to have hepatocellular disease. Patient continued to get oriented. Did not improve. Becoming hy potensive tachycardic. Seen by multiple consultants. code was called on the patient: Patient was made comfort care by family Consultants: [facility] -Dr. Vazquez from ID Dr. Piper from GI Dr. Fredo Way from critical care Dr. Juan from nephrology Dr. muñoz from neurology Previous testing White count 10.2 hemoglobin 9.4 progression 4.9 bun 51 creatinine 1.53 UA positive for leukoesterase WPC occult stool-negative EKG tracing personally reviewed by me-sinus rhythm with LVH pattern Chest x-ray film personally reviewed by me-some elevation of right diaphragm CT fflsijo-plct-um-moderate ascites, bilateral renal cyst, diverticulosis, bilateral inguinal hernia, cholelithiasis, splenomegaly, small bilateral pleural fluid EGD-colonoscopy done in June 2019 showed gastritis and diverticulosis. Abdomen-PORTAL VEIN FLOW PRESENT Hepatitis screen negative. 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 Ferritin 51. JOSUE screen negative. Possible cause of : Coronary artery disease Other medical problems: --Hepatocellular disease with evidence of portal hypertension including splenomegaly, with some worsening -Hypotensive shock, a combination of volume loss from diarrhea, possibly infection., Requiring pressor support, not improving -Hepatic encephalopathy. On lactulose. -Acute UTI with cystitis having failed outpatient treatment -Stage III sacral decubitus ulcer -Paroxysmal atrial flutter fibrillation, uncontrolled -Coumadin monitoring, vitamin K was given -Moderate severity left-sided diverticulosis -Coronary artery disease with prior UT in 2017 /bypass -BPH -Chronic kidney disease stage III from nephrosclerosis -Essential hypertension, history of -GERD -Bilateral foot drop with contractures, chronic -Chronic intellectual delay -Coumadin monitoring -Acute kidney injury a combination of prerenal and ATN, possibly from cardiorenal syndrome from hypotension, worsening -Patient's brother is a POA Disposition: -Patient Plan - Discharge Summary New Discharge Prescriptions: No Action Tamsulosin HCl [Flomax] 0.4 mg PO DAILY Melatonin 10 mg PO HS Metoprolol Tartrate [Lopressor] 12.5 mg PO BID Amiodarone [Cordarone] 200 mg PO DAILY Magnesium Oxide [Mag-Ox] 400 mg PO BID LORazepam [Ativan] 1 mg PO Q8H PRN PRN Reason: Anxiety HYDROcodone/APAP 7.5-325MG [[place] 7.5-325] 1 tab PO Q6H PRN PRN Reason: Pain Warfarin [Coumadin] 2 mg PO SUMOWETHFRSA risperiDONE 3 mg PO BID Sertraline [Zoloft] 100 mg PO DAILY Sennosides [Senna] 17.2 mg PO HS Ursodiol 300 mg PO BID Omeprazole [PriLOSEC] 20 mg PO AC-BRKFST #30 cap Cephalexin [Keflex] 500 mg PO Q12HR Discharge Medication List Amiodarone [Cordarone] 200 mg PO DAILY 09/28/16 [History] Melatonin 10 mg PO HS 09/28/16 [History] Metoprolol Tartrate [Lopressor] 12.5 mg PO BID 09/28/16 [History] Tamsulosin HCl [Flomax] 0.4 mg PO DAILY 09/28/16 [History] HYDROcodone/APAP 7.5-325MG [[place] 7.5-325] 1 tab PO Q6H PRN 01/25/17 [History] LORazepam [Ativan] 1 mg PO Q8H PRN 01/25/17 [History] Magnesium Oxide [Mag-Ox] 400 mg PO BID 01/25/17 [History] Warfarin [Coumadin] 2 mg PO SUMOWETHFRSA 01/25/17 [History] Sennosides [Senna] 17.2 mg PO HS 06/24/19 [History] Sertraline [Zoloft] 100 mg PO DAILY 06/24/19 [History] Ursodiol 300 mg PO BID 06/24/19 [History] risperiDONE 3 mg PO BID 06/24/19 [History] Omeprazole [PriLOSEC] 20 mg PO AC-BRKFST #30 cap 06/27/19 [Rx] Cephalexin [Keflex] 500 mg PO Q12HR 09/13/19 [History] Follow up Appointment(s)/Referral(s): Yeison Kelly MD [Primary Care Provider] - 1-2 days Franki Narvaez MD [STAFF PHYSICIAN] - 2 Weeks Rusty Rutherford MD [STAFF PHYSICIAN] - 2 Weeks Patient Instructions/Handouts: Urinary Tract Infection in Men (DC), Pressure Injury (DC) Activity/Diet/Wound Care/Special Instructions: [facility] - [phone] Discharge Disposition: - Preliminary Cause of Preliminary Cause of : Coronary artery disease
== END 2019-09-19 11:17 | disposition expired | DRG 689 ==
LOC: EC 11:08 → 3SCARD 14:53 → 2SICU 09-17 03:58
PROVIDERS: ADMIT Hospitalist; ATTEND Hospitalist
PROC: 4A133J1 Monitoring of Arterial Pulse, Peripheral, Percutaneous Approach (ICD-10-PCS; principal; 2019-09-17)
PROC: 02HV33Z Insertion of Infusion Device into Superior Vena Cava, Percutaneous Approach (ICD-10-PCS; principal; 2019-09-17)
PROC: 4A133B1 Monitoring of Arterial Pressure, Peripheral, Percutaneous Approach (ICD-10-PCS; principal; 2019-09-17)
PROC: 04HY32Z Insertion of Monitoring Device into Lower Artery, Percutaneous Approach (ICD-10-PCS; principal; 2019-09-17)
PROC: 5A1935Z Respiratory Ventilation, Less than 24 Consecutive Hours (ICD-10-PCS; 2019-09-18)
PROC: 0BH18EZ Insertion of Endotracheal Airway into Trachea, Via Natural or Artificial Opening Endoscopic (ICD-10-PCS; 2019-09-18)
DX: N30.90 Cystitis, unspecified without hematuria (principal); L89.153 Pressure ulcer of sacral region, stage 3; N17.0 Acute kidney failure with tubular necrosis; R65.21 Severe sepsis with septic shock; A41.51 Sepsis due to Escherichia coli [E. coli]; R40.2114 Coma scale, eyes open, never, 24 hours or more after hospital admission; R40.2214 Coma scale, best verbal response, none, 24 hours or more after hospital admission; J96.01 Acute respiratory failure with hypoxia; D68.4 Acquired coagulation factor deficiency; E87.2 Acidosis; I48.20 Chronic atrial fibrillation, unspecified; I48.92 Unspecified atrial flutter; K76.6 Portal hypertension; R18.8 Other ascites; Z16.12 Extended spectrum beta lactamase (ESBL) resistance; Z16.24 Resistance to multiple antibiotics; D63.8 Anemia in other chronic diseases classified elsewhere; E78.5 Hyperlipidemia, unspecified; E87.70 Fluid overload, unspecified; Z66 Do not resuscitate; Z51.5 Encounter for palliative care; I12.9 Hypertensive chronic kidney disease with stage 1 through stage 4 chronic kidney disease, or unspecified chronic kidney disease; I25.2 Old myocardial infarction; I48.0 Paroxysmal atrial fibrillation; K21.9 Gastro-esophageal reflux disease without esophagitis; K40.20 Bilateral inguinal hernia, without obstruction or gangrene, not specified as recurrent; K57.30 Diverticulosis of large intestine without perforation or abscess without bleeding; K80.20 Calculus of gallbladder without cholecystitis without obstruction; L89.622 Pressure ulcer of left heel, stage 2; M21.371 Foot drop, right foot; M21.372 Foot drop, left foot; N18.3 Chronic kidney disease, stage 3 (moderate); N28.1 Cyst of kidney, acquired; N40.0 Benign prostatic hyperplasia without lower urinary tract symptoms; Z79.01 Long term (current) use of anticoagulants; Z79.899 Other long term (current) drug therapy; Z86.19 Personal history of other infectious and parasitic diseases; I25.10 Atherosclerotic heart disease of native coronary artery without angina pectoris; Z87.891 Personal history of nicotine dependence; Z95.1 Presence of aortocoronary bypass graft; Z95.3 Presence of xenogenic heart valve; Z99.3 Dependence on wheelchair; R29.707 NIHSS score 7; R40.2354 Coma scale, best motor response, localizes pain, 24 hours or more after hospital admission; R16.1 Splenomegaly, not elsewhere classified; F81.9 Developmental disorder of scholastic skills, unspecified
CPT/HCPCS: 36415; 36600; 70450; 71045; 71046; 74177; 76705; 80048; 80053; 80074; 81001; 82103; 82105; 82140; 82272; 82390; 82533; 82550; 82553; 82728; 82805; 83516; 83605; 83735; 83880; 84100; 84165; 84443; 84466; 84484; 85025; 85027; 85610; 85730; 86038; 86376; 86850; 86900; 86901; 87040; 87045; 87046; 87077; 87086; 87186; 87324; 93005; 93306; 93976; 94002; 94003; 94640; 94760; 96361; 96374; 96375; 99285